=== PATIENT | male | born 1970 | race Caucasian/White ===

== ENCOUNTER 2019-10-21 01:45 | Outpatient (CLI) | payer OTHER, SELFPAY ==
[2019-10-21 09:17] LABS: Bilirubin Negative (Negative); Blood Negative (Negative); Clarity Clear (Clear); Glucose Negative (Negative); Ketones Negative (Negative); Leukocyte Esterase Negative (Negative); Nitrite Negative (Negative); Urobilinogen 0.2 EU/dL (Up TO 0.2)
== END 2019-10-21 02:05 ==
PROVIDERS: PCP Family Medicine; Visit Provider Urology
DX: N13.8 Other obstructive and reflux uropathy (principal); N40.1 Benign prostatic hyperplasia with lower urinary tract symptoms
CPT/HCPCS: 81003

== ENCOUNTER 2020-03-22 02:43 | Outpatient (CLI) | payer OTHER, SELFPAY ==
[2020-03-22 15:48] LABS: Bilirubin Negative (Negative); Blood Negative (Negative); Clarity Clear (Clear); Glucose Negative (Negative); Ketones Negative (Negative); Leukocyte Esterase Negative (Negative); Nitrite Negative (Negative); Specific Gravity 1.025 (1.005-1.025); Urobilinogen 0.2 EU/dL (Up TO 0.2)
== END 2020-03-22 03:03 ==
PROVIDERS: PCP Family Medicine; Visit Provider Urology
DX: N40.1 Benign prostatic hyperplasia with lower urinary tract symptoms (principal); N13.8 Other obstructive and reflux uropathy
CPT/HCPCS: 81003

== ENCOUNTER 2020-03-30 09:21 | Outpatient (CLI) | payer OTHER, SELFPAY ==
[2020-03-31 16:39] LABS: COVID-19 RT-PCR Result NEGATIVE (Negative)
== END 2020-03-30 09:41 ==
PROVIDERS: PCP Family Medicine; Visit Provider Family Medicine
DX: Z11.52 Encounter for screening for COVID-19 (principal); Z01.818 Encounter for other preprocedural examination
CPT/HCPCS: U0003

== ENCOUNTER 2020-05-11 02:13 | Outpatient (CLI) | payer OTHER, SELFPAY ==
[2020-05-11 16:26] LABS: ALT 53 U/L (16-63); AST 27 U/L (15-37); Alkaline Phosphatase 96 U/L (46-116); Anion Gap 2.4 mmol/L (3-11); BUN 14 mg/dL (7-18); Bilirubin, Total 0.5 mg/dL (0.2-1.0); CO2 31.6 mmol/L (21.0-32.0); CREATININE 0.8 mg/dL (0.70-1.30); Calcium 9.4 mg/dL (8.5-10.1); Calculated LDL 136 mg/dL (<100); Chloride 103 mmol/L (98-107); Cholesterol 232 mg/dL (<200); Glucose 108 mg/dL (74-106); HDL Cholesterol 38 mg/dL (40-60); Potassium 4.5 mmol/L (3.5-5.1); Sodium 137 mmol/L (136-145); Triglyceride 290 mg/dL (<150)
[2020-05-12 19:20] LABS: Vitamin D 25 Total 47.6 ng/ml (30-100)
== END 2020-05-11 02:14 | disposition home or self-care (01) ==
LOC: LBO 02:13
PROVIDERS: PCP Family Medicine; Visit Provider Family Medicine
DX: E55.9 Vitamin D deficiency, unspecified (principal); F41.9 Anxiety disorder, unspecified; E78.5 Hyperlipidemia, unspecified
CPT/HCPCS: 36415; 80053; 80061; 82306

== ENCOUNTER 2020-07-23 03:00 | Outpatient (CLI) | payer OTHER, SELFPAY ==
[2020-07-23 12:22] LABS: Source Nasal/Nares
[2020-07-23 17:02] LABS: COVID-19 PCR Negative (Negative)
== END 2020-07-23 03:01 | disposition home or self-care (01) ==
LOC: LBO 03:00
PROVIDERS: PCP Family Medicine; Visit Provider Otolaryngology
DX: Z20.822 Contact with and (suspected) exposure to COVID-19 (principal); Z01.818 Encounter for other preprocedural examination
CPT/HCPCS: 87635

== ENCOUNTER 2020-08-31 02:27 | Outpatient (CLI) | payer OTHER, SELFPAY ==
[2020-08-31 12:11] LABS: Source Nasal/Nares
[2020-08-31 15:24] LABS: COVID-19 PCR Negative (Negative)
== END 2020-08-31 02:28 | disposition home or self-care (01) ==
LOC: LBO 02:28
PROVIDERS: PCP Family Medicine; Visit Provider Otolaryngology
DX: Z20.822 Contact with and (suspected) exposure to COVID-19 (principal); Z01.818 Encounter for other preprocedural examination
CPT/HCPCS: 87635

== ENCOUNTER 2020-09-07 02:51 | Outpatient (CLI) | payer OTHER, SELFPAY ==
[2020-09-07 11:16] LABS: Source Nasal/Nares
[2020-09-07 15:14] LABS: COVID-19 PCR Negative (Negative)
== END 2020-09-07 02:52 | disposition home or self-care (01) ==
LOC: LBO 02:51
PROVIDERS: PCP Family Medicine; Visit Provider Otolaryngology
DX: Z20.822 Contact with and (suspected) exposure to COVID-19 (principal); Z01.818 Encounter for other preprocedural examination
CPT/HCPCS: 87635

== ENCOUNTER 2021-07-10 13:31 | Outpatient (CLI) | payer OTHER, SELFPAY ==
--- NOTE | 2021-07-10 13:00 | DI.RAD_ITS ---
Exam(s) XR SHOULDER RT COMPLETE 2+V EXAM: XR SHOULDER RT COMPLETE 2+V CLINICAL HISTORY: right shoulder pain. TECHNIQUE: 2D digital imaging was performed. Three views. COMPARISON: No exams were available for comparison FINDINGS: BONES: No acute fracture is present. No bony destructive lesion is seen. Acromion laterally downslop ing. Minimal spurring at the tip of the acromion. JOINTS: No dislocation present. Minimal spurring at the glenoid. SOFT TISSUE: Normal. IMPRESSION: Mild degenerative changes. DATA REPOSITORY: RADIATION DOSE DELIVERED:
== END 2021-07-10 13:32 | disposition home or self-care (01) ==
LOC: DIORS 13:32
PROVIDERS: PCP Family Medicine; Referring Provider Family Medicine; Visit Provider Physician Assistant
DX: M25.511 Pain in right shoulder (principal); M25.811 Other specified joint disorders, right shoulder
CPT/HCPCS: 73030

== ENCOUNTER → 2021-08-02 00:53 | Outpatient (CLI) | payer OTHER, SELFPAY ==
--- NOTE | 2021-08-02 07:00 | DI.MRI_ITS ---
Exam(s) MR UPPER JOINT RT WO EXAM: MR UPPER JOINT RT WO CLINICAL HISTORY: R SHOULDER PAIN, M25.511. TECHNIQUE: Multiplanar multisequence MRI was performed. COMPARISON: CR XR SHOULDER RT COMPLETE 2+V from 07/10/2021 FINDINGS: BONES: There is no fracture or contusion pattern. JOINTS: Mild degenerative changes are seen at the acromioclavicular joint. The glenohumeral joint is normal. TENDONS: Supraspinatus: There is a large near complete tear of the supraspinatus tendon at its insertion site. Infraspinatus: Unremarkable. Subscapularis: Unremarkable. Teres Minor: Unremarkable. Biceps and Rangely: Unremarkable. MUSCLES: Unremarkable. GLENOID LABRUM: Unremarkable on this noncontrast examination. SOFT TISSUES: Unremarkable. LIGAMENTS: Unremarkable. OTHER: There is a small amount of fluid in the subacromial subdeltoid bursa. IMPRESSION: 1. Near complete tear of the supraspinatus tendon at the insertion site onto the greater tuberosity. 2. Mild degenerative changes at the acromioclavicular joint. 3. Small amount of fluid seen in the subacromial subdeltoid bursa. DATA REPOSITORY:
== END ==
PROVIDERS: PCP Family Medicine; Visit Provider Student in an Organized Health Care Education/Training Program
DX: M25.511 Pain in right shoulder (principal); M25.411 Effusion, right shoulder; M75.101 Unspecified rotator cuff tear or rupture of right shoulder, not specified as traumatic
CPT/HCPCS: 73221

== ENCOUNTER 2022-01-30 09:20 | Day surgery (SDC) | payer OTHER, SELFPAY ==
[2022-01-30] VITALS (8 sets, daily range): BP systolic 90–137; BP diastolic 46–86; PULSE 58–88; RESP 13–19; TEMP 36.5–36.7; O2SAT 94–99; BMI 29.5
--- NOTE | 2022-01-30 08:08 | W.ANESPRE ---
General Info Date of Service Date Performed: 01/30/22 Height: 6 ft 2 in Weight: 104.326 kg Body Mass Index (BMI): 29.5 Surgical Procedure: Operation Date: 01/30/22 10:25 Proposed Procedure Side Surgeon p Shoulder Rotator Cuff Arthroscopic w/Extensive Debridement, Biceps Tenodesis, Subacromial Decompression Right Don Elias MD Meds Allergies and Home Medications Allergies Allergy/AdvReac Type Severity Reaction Status Date / Time No Known Allergies Allergy Verified 01/29/22 08:32 Home Medication Medication Instructions Recorded cholecalciferol (vitamin D3) 10 40 mcg PO DAILY 07/02/21 mcg (400 unit) capsule multivitamin 1 tab PO DAILY 07/02/21 sertraline 25 mg tablet 25 mg PO DAILY 01/08/22 Current Visit Medications: Current Medications Generic Name Dose Route Start Last Admin Trade Name Freq PRN Reason Stop Dose Admin Ringer's Solution 1,000 mls @ 30 mls/hr 01/30/22 06:00 IV 02/28/22 23:59 INFUSION ANGELITA Cefazolin Sodium/Dextrose 2 gm in 50 mls @ 100 mls/hr 01/30/22 06:00 Ancef Duplex IVPB 01/30/22 16:00 PREOP ANGELITA IV Miscellaneous Supplies 1 each 01/30/22 06:00 Iv Access IV 02/28/22 23:59 DIRECTED ANGELITA Oxycodone HCl 0 mg 01/30/22 07:15 Oxycodone 5 Mg Tab PO Q3H PRN PRN Pain Sodium Chloride 0 ml 01/30/22 06:00 Normal Saline Flush 10 Ml Syr IV 02/28/22 23:59 PRN PRN Sodium Chloride 0 ml 01/30/22 06:00 Normal Saline 10 Ml Vial IJ 02/28/22 23:59 DIRECTED PRN Sterile Water 0 ml 01/30/22 06:00 Water,Injection,Sterile 10 Ml Vial IJ 02/28/22 23:59 DIRECTED PRN PFSH Active Problems Active Problems: Problem Status Onset Code Sinusitis J32.9 Restless leg syndrome G25.81 Mixed hyperlipidemia E78.2 Sleep apnea G47.30 Vitamin D deficiency E55.9 Tendonitis of long head of biceps brachii of right shoulder M75.21 Bursitis of right shoulder M75.51 Rotator cuff tear, right M75.101 Medical History Medical History Ankle fracture, right plate and pins, ~2013 [facility] Obstructive sleep apnea on CPAP Torticollis neck, Dx 2010 Medical History Comments:: As child PONV Surgical History Surgical History H/O nasal septoplasty CV ~2019 S/P TURP CV ~2018 Tobacco Smoking/Tobacco Use Status: Current-Occasional Tobacco Type: cigars Alcohol Alcohol Intake: current Alcohol intake frequency: holidays/special occasions only Alcohol type: beer Substance Use Substance use: Never Substance use type: does not use Vital Signs and Lab Results Vital Signs Most Recent Vital Signs in EMR: Temp Pulse Resp BP Pulse Ox 36.6 C 88 18 137/80 97 01/30/22 09:27 01/30/22 09:27 01/30/22 09:27 01/30/22 09:27 01/30/22 09:27 Lab Results Blood Type / Crossmatch: No Data to Display Complete Blood Count: No Data to Display Complete Metabolic Panel: No Data to Display Liver Function Panel: No Data to Display Coagulation Panel: No Data to Display Cardiac Panel: No Data to Display Arterial Blood Gas: No Data to Display Venous Blood Gas: No Data to Display Pancreas Panel: No Data to Display Thyroid Panel: No Data to Display Infectious Disease: No Data to Display Blood Cultures: No Data to Display Toxicology Panel: No Data to Display Anesthesia Assessment and Plan Anesthesia History Personal History: Other Family History: No Family History of Anesthesia Complications Exercise Tolerance Exercise Tolerance: Metabolic Equivalents>4 Cardiac & Pulmonary Exam Cardiac Exam: Normal S1/S2 Heart Sounds Pulmonary Exam: Clear Bilateral Breath Sounds Implantable Cardiac Device Does patient have a Pacemaker or an ICD?: No Airway Exam Known Difficult Airway: No Mallampati Class: 2 Mouth Opening: Normal (> 3cm) Thyromental Distance: Greater than 3 cm Neck Range of Motion: Full ROM Neck Circumference: Normal Teeth Condition: Normal Dentition ASA Classification ASA Score: ASA 2 Emergency Case?: No NPO Status NPO Status: NPO Clears >2 hours, Solids >8 hours Anesthesia Plan Resuscitation Status: Full Code Anesthesia Technique: General Anesthesia Airway Planned: Endotracheal Tube Pain Management: Surgeon and patient request nerve block Monitors Used: Standard Monitors Preoperative Comments:: 51 yo male for shoulder scope. Sig PMHx: RLS, RONALD, torticollis, s/p septoplasty, occ cigars/etoh. Discussed risks and benifits of GA with brachial plexus block. discussed risk of permanant nerve injury. He would like to proceed with GA, and brachial plexus block. Does have a history of PONV and motion sickness. Has had scopolamine patch in the past with success, will give him one today.
[2022-01-30] MEDS: Lactated Ringers 1,000 ML 30 ML IV (10:00)
--- NOTE | 2022-01-30 12:00 | ROE_ITS ---
Date of service: 01/30/22 Time of Service: 12:00 Operative Note Operative Note DATE OF PROCEDURE: 01/30/22 PRE-OP DIAGNOSIS: Right: 1. Rotator cuff tear 2. LHB tendinopathy 3. Bursitis 4. Impingement POST-OP DIAGNOSIS: same PROCEDURE: Right: 1. Rotator cuff repair, CPT# 93117. This involved repair of the supraspinatus using sutures and anchor to reattach the rotator cuff back to the footprint of the greater tuberosity. 2. Arthroscopic biceps tenodesis, CPT# 46354. This involved arthroscopically suturing and reattaching the long head of the biceps tendon to the proximal humerus at the superior margin of the bicipital groove with a screw at the correct tension. 3. Extensive debridement, CPT# 79079. This involved using arthroscopic hand instruments, power instruments, and radiofrequency instruments to release the long head of the biceps tendon and debride areas of labral tearing, synovitis, [facility] and a small anterior capsular release, and chondromalacia about the humeral head working within the glenohumeral joint anteriorly, superiorly and posteriorly. 4. Subacromial decompression with partial acromioplasty, CPT# 21732. This involved using arthroscopic power instruments and a radiofrequency wand to complete a bursectomy and release bone marrow from the undersurface of the acromion. The assistant housekeeping manager was medically required in order to help assist in techniques above, which require positioning the arm, holding the arthroscope, and manipulating multiple instruments and sutures at the same time. This cannot be done without the help of an experienced assistant housekeeping manager. SURGEON: Don Elias SUPERVISOR FUSING ROOM: Gayla Dunn ANESTHESIA TYPE: General LMA/ETT and Primary Nerve Block Refer to Anesthesia Record ESTIMATED BLOOD LOSS: 10 PATHOLOGY: none sent COMPLICATIONS: None Patient was transported to: PACU Patient's condition: stable Implants: Arthrex: 4.75mm SwiveLocks x 2 Indications: The patient was diagnosed with the above conditions and appropriately indicated for surgical intervention. Please see complete medical record for details. Findings: Exam under anesthesia: Moderately limited external rotation stiffness at the side and mildly limited forward elevation Glenohumeral joint: SLAP tear with moderate biceps injection. Intact articular rotator cuff. Moderate early glenohumeral narrowing and cartilage softening chondromalacia with a few focal areas of cartilage injury superior humeral head. Moderate anterior synovitis. Intact subscapularis. Subacromial space: Moderate bursitis. Minimal acromial bone spur. Concealed supraspinatus near?full-thickness bursal tear. Mild diffuse rotator cuff f raying intact remainder rotator cuff. Procedure Description: In the operating room, general anesthesia was induced. Bilateral shoulders were examined. The patient was positioned in the beachchair position. All bony prominences were well-padded. Preoperative antibiotics were administered. The shoulder was prepped and draped in the usual sterile fashion. The correct patient, procedure, and side of the procedure were all verified prior to incision. Starting through the posterior portal a standard complete diagnostic arthroscopy was performed of the glenohumeral joint including inspection of the long head of the biceps, anterior and superior labrum, subscapularis tendon, supraspinatus and infraspinatus tendons, and axillary recess. The glenoid and humeral head cartilage as well as the posterior labrum were inspected from an anterior viewing portal. Significant findings and interventions noted above. An all-arthroscopic suprapectoral biceps tenodesis was performed through an anterior portal using a Loop N Tack method with a SutureTape FiberLink cinched around and through the tendon. The biceps was tenotomized from the labrum and fixated with a suture anchor at the superior margin of the bicipital groove. The safety stitch was passed around either end of the tendon stump and arthroscopic knots used to add further fixation and tenodesis security. Starting through the posterior portal, the arthroscope was directed into the subacromial space. A lateral 50 yard line lateral portal was created. A combination of power instruments and a radiofrequency ablator were used to debride bursitis anteriorly, posteriorly, and laterally. The coracoacromial ligament was minimally released. The bursectomy was completed viewing laterally and working from posteriorly and the rotator cuff was thoroughly inspected with findings noted above. The elevator was used to localize the area of lateral anterior supraspinatus tendon injury. Taking care to elevate from lateral the elevator was easily able to find the focal area of known high-grade tendon tearing. It was about a centimeter medial lateral anterior and posterior. It was thoroughly debrided and tendon and bone optimize for healing using mechanical shaver various elevators and rasp. There was good preparation of the bony bed for healing. The remaining tendon had strong fibers. The self retrieving suture passer was used to place an inverted horizontal mattress FiberTape stitch followed by a suture tape FiberLink ripstop centrally. The sutures were secured to a single 3 punched 4.75 mm SwiveLock lateral anchor with the appropriate tension and excellent fixation strength. The repair was stable through range of motion and probing. The mechanical shaver was used to abrade the undersurface of the acromion as bone marrow stimulation aid in healing of this subacute and partial rotator cuff tear. The shoulder was drained of arthroscopic fluid. All portal sites were copiously irrigated. These incisions were closed using 3-0 Monocryl in a buried fashion and then covered with Mastisol, Steri-Strips, Xeroform, dry gauze, and ABDs. The dressings were covered and secured with Medipore tape. The operative extremity was placed into a sling for immobilization. The patient awoke from anesthesia without complication and was transferred to the recovery room in a stable condition.
[2022-01-30] MEDS: ceFAZolin 2 GM/50 ML BAG IVPB (12:14)
--- NOTE | 2022-01-30 12:35 | W.ANESNERVE ---
Nerve Block Single Injection Procedure Date and Time Date Performed: 01/30/22 Procedure Start: 11:59 Location Where Procedure Performed Procedure Location: Day Surgery Unit Reason Performed: Postoperative Analgesia Requesting Provider: Don Elias Timeout Performed Timeout Performed: Yes Monitoring Used ECG, Blood Pressure and SpO2 Sterility Sterility: Hand Hygiene Sedation Given During Procedure Sedation Given (Indicate Dose Given): Versed IV Dose:: 2 mg and Ketamine IV Dose:: 10 mg Patient Mental Status Patient Mental Status: Sedate with meaningful communication Nerve Block 1st Nerve Block: Laterality: Right Block Type: Interscalene Needle / Catheter Used: 100mm SonoPlex II Local Anesthetic Bolus (Indicate Dose Given): Bupivacaine 0.5% Dose:: 15 mL and Exparel Dose:: 10 mL Additives (Indicate Dose Given): None Ultrasound: Sterile probe cover and gel used Ultrasound Image Saved?: Yes Nerve Stimulator: Supplement to Ultrasound use and No twitch or parasthesia noted < 0.5 mA Paresthesia: None Procedure Tolerated: No Complications Procedure Outcome: Successful Performed By: Krunal Martin
[2022-01-30] MEDS: EPINEPHrine 30 MG/30 ML VIAL (13:15)
--- NOTE | 2022-01-30 13:51 | W.PM.DSUDISC ---
Date of service: 01/30/22 Time of Service: 13:51 Discharge Plan Disposition Patient Disposition: HOME Condition: Good Discharge Details Reason For Visit: Right shoulder surgery Attending Provider: Don Elias Primary Care Provider: Nick Dave Home Meds and New Rx's Prescriptions: New naproxen 250 mg tablet 250 - 500 mg PO BID PRNQty: 40 0RF Rx Instructions: take with a meal aspirin 81 mg tablet,delayed release (DR/EC) 81 mg PO DAILY 7 Days Qty: 7 0RF oxycodone 5 mg tablet 5 - 10 mg PO Q4H MDD 30 mg PRN (Reason: moderate to severe pain) Qty: 18 0RF Continued sertraline 25 mg tablet 25 mg PO DAILY cholecalciferol (vitamin D3) 10 mcg (400 unit) capsule 40 mcg PO DAILY multivitamin Tablet 1 tab PO DAILY Discharge Instructions Additional Instructions: Surgery: Right shoulder arthroscopy with rotator cuff repair (bursal supraspinatus), biceps tenodesis, extensive debridement, and subacromial decompression. Activity: For 6 weeks, you should keep your arm at your side in a neutral position at all times except for physical therapy. Do not try to lift or raise your arm using your own muscles. You should use the sling whenever you are out of the house. You may have to adjust the abduction pillow or remove it for comfort. At home it is best to remove the sling and rest the arm on a pillow at your side or support the operative side with your other hand. You may allow the arm to dangle at your side. A physical therapy prescription will be sent electronically to begin in about 3 weeks. Prescriptions: Aspirin 81 mg take 1 daily to prevent a blood clot for 7 days Naproxen 250 mg take 1-2 every 12 hours with a meal as needed for moderate pain Oxycodone 5 mg take 1-2 every 4-6 hours as needed for severe pain You may use [id number] Tylenol (acetaminophen) as needed for mild pain. These pain medications may be taken all at once or in different combinations as needed. Also, recommend Colace (docusate) as a stool softener as surgery and pain medicine cause constipation. You may try [id number] diphenhydramine (Benadryl) 25-50 mg nightly as a sleep aid Dressings: Remove shoulder bandage after 3 days. Leave the sticky Steri-Strips in place until they fall off or remove them after you shower. Cover the incisions with Band-Aids or leave them open to air. You may shower after 5 days. Follow-up: 10-[address] Elias You may take off the leg compression stockings this evening at home. You may also leave them on a few days longer if you have a history of leg swelling or edema. Let us know right away if you develop any redness, drainage, fevers, chest pain, or trouble breathing. Do not drink alcohol or drive for at least 24 hours after anesthesia. Please call the office during business hours with any questions or concerns. DS: Diagnosis Discharge Diagnosis (1) Rotator cuff tear, right: Status: Acute
--- NOTE | 2022-01-30 14:56 | W.ANESPOSTOP ---
Postoperative Evaluation Date, Time and Location Date Performed: 01/30/22 Time Performed: 14:56 Patient Location: Day Surgery Unit Vital Signs Most Recent Imported Vital Signs: Most Recent Vital Signs Temp Pulse Resp BP Pulse Ox 36.5 C 64 16 102/59 L 94 01/30/22 14:32 01/30/22 14:32 01/30/22 14:32 01/30/22 14:32 01/30/22 14:32 Pain Score Most Recent Pain Score: Most Recent Pain Score Pain Level 0 01/30/22 14:32 Assessment Mental Status: Awake (Alert & Oriented to Patient Baseline) Airway and Respiratory Function: Patent airway with normal (patient baseline) respiratory exam Cardiovascular Function: Hemodynamically Stable Hydration Status: Adequately Hydrated Nausea & Vomiting: No Nausea or Vomiting Pain: Pain is tolerable per patient Peripheral Nerve Block: Regional nerve block not resolved at time of post operative discharge
== END 2022-01-30 15:31 | disposition home or self-care (01) ==
PROVIDERS: PCP Family Medicine; Visit Provider Student in an Organized Health Care Education/Training Program
PROC: (CPT 29827; principal; 2022-01-30 10:15)
DX: M75.101 Unspecified rotator cuff tear or rupture of right shoulder, not specified as traumatic (principal); M75.21 Bicipital tendinitis, right shoulder; M75.51 Bursitis of right shoulder; M75.41 Impingement syndrome of right shoulder; M94.211 Chondromalacia, right shoulder
CPT/HCPCS: 29827; 29828; 29826; 29823; 76942; J0131; J0690; J1100; J1885; J2250; J2370; J2405; J2704

== ENCOUNTER 2022-02-16 07:38 | Emergency (ER) | payer OTHER, SELFPAY ==
[2022-02-16 07:41] VITALS: BP 134/85; PULSE 72; RESP 18; TEMP 36.1; O2SAT 99
--- NOTE | 2022-02-16 07:45 | DI.RAD_ITS ---
Exam(s) XR SHOULDER RT COMPLETE 2+V EXAM: XR SHOULDER RT COMPLETE 2+V CLINICAL HISTORY: s/p rotator cuff repair,worse pain,r/o acute dz TECHNIQUE: COMPARISON: CR XR SHOULDER RT COMPLETE 2+V from 07/10/2021 FINDINGS: Four views were obtained. There is some loss of the cartilaginous joint space of the glenohumeral gertrudis int, presumably on a degenerative basis. Slight marginal osteophyte formation of the AC joint and gl enohumeral joint is noted. There is no evidence of acute fracture or dislocation. IMPRESSION: RADIATION DOSE DELIVERED: Total DLP
--- NOTE | 2022-02-16 07:58 | W.ED.GENAD ---
Discharge Plan Disposition Patient Disposition: Home Condition: Stable Discharge Details Clinical Impression: Pain in right shoulder, Frozen shoulder Primary Care Provider: Nick Dave ED Provider: Daron Lang Home Meds and New Rx's Prescriptions: Continued sertraline 25 mg tablet 25 mg PO DAILY cholecalciferol (vitamin D3) 10 mcg (400 unit) capsule 40 mcg PO DAILY multivitamin Tablet 1 tab PO DAILY naproxen 250 mg tablet 250 - 500 mg PO BID PRNQty: 40 0RF Rx Instructions: take with a meal oxycodone 5 mg tablet 5 tab PO Q8H PRN Label Comments: TAKE ONE TO TWO TABLETS EVERY 4 HOURS NEEDED FOR MODERATE TO SEVERE PAIN MAXIMUM DAILY DOSE = 6 TABLETS Discontinued ibuprofen 600 mg Tablet 600 mg PO Q8H Discharge Instructions Instructions: Shoulder Pain (ED) Additional Instructions: Please follow-up with orthopedics. Please take acetaminophen (tylenol) - 650mg every 6 hours by mouth as needed for pain. Please take naproxen as prescribed or ibuprofen (dose according to label). Return to the emergency department immediately for any worsening or new concerning symptoms. Referrals: Don Elias MD [ [facility] STAFF PHYSICIAN] - Discharge Data Discharge Date/Time-TO BE ENTERED AT DEPARTURE: 02/16/22 10:43 Medical Decision Making <Dagmar Baca DO - Last Filed: 02/19/22 18:46> 51-year-old male 2-1/2-week status post right rotator cuff repair with Dr. Elias presents with worsening pain this morning. Patient appears significantly uncomfortable diaphoretic. His vitals are within normal limits. He has limitation of range of motion at right shoulder but is able to passively flex and abduct to approximately 20 degrees. Distal pulses are intact. Surgical site no signs of cellulitis. Consider adhesive capsulitis. History and presentation not consistent with ACS at this time. We will give a dose of Zofran for nausea and Dilaudid p.o. approximately 30 minutes after Zofran if relief of nausea. Will obtain right shoulder x-ray. Case endorsed to Dr. Lang to follow-up on imaging and reassess after pain meds and discuss with orthopedics any additional recommendations or plan. <Daron Lang MD - Last Filed: 02/16/22 09:49> Sign Out No HPI <Dagmar Baca DO - Last Filed: 02/19/22 18:46> General Mode of arrival: ambulatory. Date/Time Provider Initiated Documentation: 02/16/22 07:46. Limitations to Documentation: no limitations. Information obtained by: patient. HPI Narrative: Patient is a 51-year-old male who is 2 and half weeks status post right rotator cuff repair with Dr. Elias who presents for worsening right shoulder pain this morning. He denies any new injury. Patient states he took naproxen and Tylenol at 4:30 AM and took oxycodone at 6 AM without relief. Patient states he has not needed to take the oxycodone until this morning. Patient states he feels like his shoulder is frozen. Patient last followed up with Dr. Elias this week for a postop visit and was told he can slightly increase his range of motion in his shoulder but he states he has been mainly using the ball for hand exercises and has not been rotating his shoulder as much. He denies any fever, chest pain, difficulty breathing. Patient does admit to nausea but states he frequently has this at times of pain. Related Data Home Medications Medication Instructions Recorded Confirmed cholecalciferol (vitamin D3) 10 40 mcg PO DAILY 07/02/21 02/16/22 mcg (400 unit) capsule multivitamin 1 tab PO DAILY 07/02/21 02/16/22 sertraline 25 mg tablet 25 mg PO DAILY 01/08/22 02/16/22 naproxen 250 mg tablet 250 - 500 mg PO BID PRN #40 tabs 01/30/22 02/16/22 oxycodone 5 mg tablet 5 tab PO Q8H PRN pain 02/16/22 02/16/22 Previous Rx's Medication Instructions Recorded naproxen 250 mg tablet 250 - 500 mg PO BID PRN #40 tabs 01/30/22 Allergies Allergy/AdvReac Type Severity Reaction Status Date / Time No Known Allergies Allergy Verified 02/16/22 07:44 General Stated Complaint: Orthopedic ARTURO: 3 Review of Systems <DO Alexander Turcios Last Filed: 02/19/22 18:46> All systems reviewed & are unremarkable except as noted in HPI and below Constitutional Constitutional: Reports as per HPI, Denies chills and Denies fever(s) Eyes Eyes: Denies blurry vision ENT Ears, Nose, Mouth, and Throat: Denies dizziness, Denies sore throat and Denies throat swelling Cardiovascular Cardiovascular: Denies chest pain and Denies dyspnea Respiratory Respiratory: Denies cough and Denies dyspnea Gastrointestinal Gastrointestinal: Denies abdominal pain, Denies diarrhea and Denies vomiting Genitourinary Genitourinary: Denies hematuria and Denies dysuria Musculoskeletal Musculoskeletal: Denies back pain and Denies numbness Comments: Right shoulder pain Integumentary/Breasts Skin/Breast: Denies lesions and Denies rash Neurologic Neurologic: Denies dizziness, Denies localized weakness and Denies numbness Allergic/Immunologic Allergic/Immunologic: Denies throat swelling PFSH <Dagmar Baca DO - Last Filed: 02/19/22 18:46> All Active Problems (Updated 02/16/22 @ 09:52 by Daron Lang MD) Pain in right shoulder (Acute) Frozen shoulder (Acute) Sinusitis (Acute) Restless leg syndrome (Acute) Mixed hyperlipidemia (Acute) Sleep apnea (Acute) Vitamin D deficiency (Acute) Rotator cuff tear, right (Acute) Medical History (Updated 02/16/22 @ 09:52 by Daron Lang MD) Ankle fracture, right plate and pins, ~2013 [facility] Bursitis of right shoulder Obstructive sleep apnea on CPAP Tendonitis of long head of biceps brachii of right shoulder Torticollis neck, Dx 2009 Surgical History H/[place] [facility] [place] [facility] [place] Social History Smoking/Tobacco Use Status: Current-Occasional Tobacco Type: cigars Tobacco: How many years used: 25 Smoking risk assessment performed?: Yes Alcohol Intake: current Alcohol Intake frequency: holidays/special occasions only Alcohol type: beer Drug use: Never Substance use type: does not use Current gender identity: male Do you feel safe at home: Yes Do you feel safe in your relationship?: Yes Exam <Dagmar Baca DO - Last Filed: 02/19/22 18:46> Const General: cooperative, healthy appearing and no acute distress HENMT Head: normal to inspection Mouth: oral mucosae normal Eyes General: appearance normal, both eyes and all related structures Neck Neck: normal visual inspection Resp Effort & Inspection: normal respiratory effort and able to speak in complete sentences Auscultation: clear to auscultation bilaterally Cardio Rate: regular rate Rhythm: regular rhythm Skin General skin exam: no rashes or lesions noted Neuro General: patient alert, patient awake and patient oriented x3 Motor: muscle tone normal throughout Extrem Shoulder/upper arm images: 1. Well-healed surgical incision sites. No signs of cellulitis. Other: Limited range of motion at right shoulder but able to passively flex and abduct to about 20 degrees. Right radial pulse intact. Psych Appearance: grossly normal Affect: normal affect Course <Dagmar Baca DO - Last Filed: 02/19/22 18:46> Vital Signs Vital signs: Vital Signs Temperature 97.0 F L 02/16/22 07:41 Pulse 72 02/16/22 07:41 Respiratory Rate 18 02/16/22 07:41 Blood Pressure 134/85 02/16/22 07:41 Pulse Oximetry 99 02/16/22 07:41 Temperature 97.0 F L 02/16/22 07:41 Temperature Source Temporal Artery Scan 02/16/22 07:41 Pulse 72 02/16/22 07:41 Respiratory Rate 18 02/16/22 07:41 Respiratory Effort 02/16/22 07:44 Blood Pressure 134/85 02/16/22 07:41 Blood Pressure Position Sitting 02/16/22 07:41 Pulse Oximetry 99 02/16/22 07:41 Oxygen Delivery Method Room Air 02/16/22 07:41 Oxygen Flow Rate 0 02/16/22 07:41 Pain Level 7 02/16/22 07:41 Sign Out <Dagmar Baca DO - Last Filed: 02/19/22 18:46> Sign Out Data: Sign Out Comment: Status post rotator cuff repair on 01/[address] Elias. Worsening R shoulder pain this morning. Reassess after meds follow-up on x-ray and likely discuss plan with orthopedics. Last updated by Dagmar Baca DO at 02/16/22 07:59
[2022-02-16] MEDS: Ondansetron O.D.T. 4 MG TABEF PO (08:03)
--- NOTE | 2022-02-16 08:25 | DI.VRAD_ITS ---
PROCEDURE INFORMATION: Exam: XR Right Shoulder Exam date and time: 02/16/2022 8:13 AM Age: 51 years old Clinical indication: Pain; Shoulder; Right; Prior surgery; Surgery date: <1 month; Surgery type: Rotator cuff on the TECHNIQUE: Imaging protocol: Radiologic exam of the Right shoulder. Views: 2 or more views. COMPARISON: CR XR SHOULDER RT COMPLETE 2+V 07/10/2021 1:26 PM FINDINGS: Bones/joints: Unremarkable. Soft tissues: Unremarkable. IMPRESSION: No acute findings. Dictated and Authenticated by: Adrian Carmona MD. Ordering:POLO Leavitt MD
[2022-02-16] MEDS: HYDROmorphone 4 MG TAB PO (08:27)
[2022-02-16 09:20] VITALS: BP 125/79; PULSE 63; RESP 16; O2SAT 96
--- NOTE | 2022-02-16 09:50 | W.EDPROG ---
Date of service: 02/16/22 Time of Service: 09:50 Medical Decision Making Care signed out by Dr. Baca, please see her documentation regarding initial ED presentation and course. X-ray of the shoulder was interpreted by radiology: No acute findings. I spoke with Dr. Middleton as well as Dr. Elias. I discussed ED presentation and course. They recommend NSAID, continue opioids if needed and Dr. Elias will follow up with the patient. Patient was reassessed and nausea improved as well as pain improved. Sign Out No Sign Out Sign Out Data: Sign Out Comment: Status post rotator cuff repair on 01/[address] Elias. Worsening R shoulder pain this morning. Reassess after meds follow-up on x-ray and likely discuss plan with orthopedics. Last updated by Dagmar Baca DO at 02/16/22 07:59 Discharge Plan Disposition Patient Disposition: Home Condition: Stable Discharge Details Clinical Impression: Pain in right shoulder, Frozen shoulder Primary Care Provider: Nick Dave ED Provider: Daron Lang Home Meds and New Rx's Prescriptions: Continued sertraline 25 mg tablet 25 mg PO DAILY cholecalciferol (vitamin D3) 10 mcg (400 unit) capsule 40 mcg PO DAILY multivitamin Tablet 1 tab PO DAILY naproxen 250 mg tablet 250 - 500 mg PO BID PRNQty: 40 0RF Rx Instructions: take with a meal oxycodone 5 mg tablet 5 tab PO Q8H PRN Label Comments: TAKE ONE TO TWO TABLETS EVERY 4 HOURS NEEDED FOR MODERATE TO SEVERE PAIN MAXIMUM DAILY DOSE = 6 TABLETS Discontinued ibuprofen 600 mg Tablet 600 mg PO Q8H Discharge Instructions Instructions: Shoulder Pain (ED) Additional Instructions: Please follow-up with orthopedics. Please take acetaminophen (tylenol) - 650mg every 6 hours by mouth as needed for pain. Please take naproxen as prescribed or ibuprofen (dose according to label). Return to the emergency department immediately for any worsening or new concerning symptoms. Referrals: Don Elias MD [ [facility] STAFF PHYSICIAN] - Discharge Data Discharge Date/Time-TO BE ENTERED AT DEPARTURE: 02/16/22 10:43
== END 2022-02-16 10:43 | disposition home or self-care (01) ==
PROVIDERS: Emergency Provider Student in an Organized Health Care Education/Training Program; PCP Family Medicine
DX: M75.01 Adhesive capsulitis of right shoulder (principal); F17.290 Nicotine dependence, other tobacco product, uncomplicated
CPT/HCPCS: 99283; 73030; 99284

== ENCOUNTER → 2023-04-03 00:27 | Outpatient (CLI) | payer BC, SELFPAY ==
--- NOTE | 2023-04-03 14:58 | DI.RAD_ITS ---
Exam(s) XR SHOULDER LT COMPLETE 2+V EXAM: XR SHOULDER LT COMPLETE 2+V CLINICAL HISTORY: H/O ROTATOR CUFF TEAR,FEELS SIMILAR,LT SHOULDER PAIN,m25.512. TECHNIQUE: 2D digital imaging was performed. Three views. COMPARISON: CR,XR XR SHOULDER RT COMPLETE 2+V from 02/16/2022 FINDINGS: BONES: No acute fracture is present. No bony destructive lesion is seen. JOINTS: No dislocation present. No significant degenerative changes. SOFT TISSUE: Normal. IMPRESSION: Unremarkable radiographs of the left shoulder. DATA REPOSITORY: RADIATION DOSE DELIVERED:
== END ==
PROVIDERS: PCP Family Medicine; Visit Provider Family Medicine
DX: M25.512 Pain in left shoulder (principal)
CPT/HCPCS: 73030

== ENCOUNTER → 2023-06-26 00:15 | Outpatient (CLI) | payer BC, SELFPAY ==
--- NOTE | 2023-06-26 09:45 | DI.MRI_ITS ---
Exam(s) MR UPPER JOINT LT WO EXAM: MR UPPER JOINT LT WO CLINICAL HISTORY: LT SHOULDER PAIN, M25.512,G89.29 TECHNIQUE: Multiplanar multisequence MRI of the shoulder was performed. COMPARISON: MR MR UPPER JOINT RT WO from 08/02/2021 CR XR SHOULDER LT COMPLETE 2+V from 04/03/2023 FINDINGS: MARROW:No evidence of fracture nor Hill-Sachs deformity nor osseous Bankart lesion. However, there i s a well-defined bone lesion measuring 1.3 by 1.2 cm in the scapula the base of the a chromium. T1 h ypointense and T2 hyperintense and with sclerotic rim. GLENOHUMERAL JOINT: No evidence of glenohumeral joint effusion but there is fluid within the biceps t endon sheath within the intertubercular groove consistent with tenosynovitis. There are no loose int ra-articular bodies within the tendon sheath at this level. Is no prominent articular cartilage loss in the glenohumeral joint. No degenerative subarticular cysts. No osteophytes evident. ROTATOR CUFF MECHANISM: AC JOINT/ACROMIUM: Mild degenerative changes in the AC joint.. There is no evidence of os acromiale. Supraspinatus: There is abnormal signal in the most anterior aspect of the musculotendinous junction of the supraspinatus immediately subjacent to the coraco- acromial ligament within the rotator cuff i nterval. This is immediately adjacent to the biceps tendon at this level. There is also some tendin itis signal in the supraspinatus tendon just above the greater tuberosity.. Mild edema noted in the subacromial bursa space. There is no atrophy of the muscle belly. Infraspinatus: Intact. No evidence of tear nor muscle atrophy. Teres Minor: Intact. No evidence of tear nor muscle atrophy. Subscapularis/anterior cuff: Intact. No abnormal signal at the level of the multipennate insertional fibers. No significant tear nor atrophy. BICEPS TENDON: Exhibits normal position within the intertubercular groove. No evidence of tear. No tenosynovitis. LABRUM: No labral tear identified. No evidence of paralabral cyst. QUADRILATERAL SPACE: No evidence of mass in the region of the axillary nerve and dorsal circumflex hu meral vessels. Visualized triceps muscle at this level appears unremarkable. IMPRESSION: 1. There is signal abnormality related to the most anterior aspect of the supraspinatus tendon and ab ove the greater tuberosity with mild edema in the subacromial space. Favor tendinitis over partial-t hickness tearing. Other muscles of the rotator cuff mechanism appear intact. 2. There is tenosynovitis of the biceps tendon within the intertubercular groove. No loose bodies wi thin the tendon sheath. There is no generalized glenohumeral joint effusion, this excess fluid being localized to the biceps tendon sheath. 3. No obvious labral tears nor paralabral cysts. 4. No obvious degenerative changes in the glenohumeral joint. Mild degenerative changes in the AC j oint. 5. There is a 13 x 12 millimeter bone lesion in the scapula at the base of the achromium. Should be further imaged with CT scan of this region. DATA REPOSITORY:
== END ==
PROVIDERS: PCP Family Medicine; Visit Provider Family Medicine
DX: M75.22 Bicipital tendinitis, left shoulder (principal)
CPT/HCPCS: 73221

== ENCOUNTER 2023-09-13 15:58 | Observation (INO) | payer BC, SELFPAY ==
[2023-09-13 16:00] VITALS: BP 151/75; PULSE 87; RESP 16; TEMP 36.2; O2SAT 96
--- NOTE | 2023-09-13 16:15 | DI.CT_ITS ---
Exam(s) CT ABDOMEN PELVIS W EXAM: CT ABDOMEN PELVIS W CLINICAL HISTORY: RLQ pain. TECHNIQUE: Imaging Protocol: Axial computed tomography images with coronal and sagittal reformatted images were created and reviewed CONTRAST MATERIAL: Intravenous: Omnipaque-350 100cc Oral: None COMPARISON: No exams were available for comparison FINDINGS: VISUALIZED LUNG BASES: No nodules nor pleural effusions evident. ABDOMEN: There is no ascites. LIVER: There few small hypodensities in the liver. The largest measures 1.1 x 1.0 cm. These have th e appearance of probable cysts. No dilated intrahepatic ducts. GALLBLADDER/BILIARY: No obvious gallbladder pathology. CBD is not dilated. PANCREAS: No evidence of pancreatic mass nor dilatation of the pancreatic duct. SPLEEN: Spleen size is upper normal-minimally prominent measuring 13 cm craniocaudal. There are no s plenic lesions identified. Splenic and portal veins are patent. ADRENALS: There are no significant adrenal masses. KIDNEYS:Left kidney unremarkable. The right side there is a small calculus in the upper right ureter at the ureteropelvic junction, this measures 3 mm. There are no additional radiopaque calculi seen in the right ureter below this level nor within the nondistended urinary bladder.. ABDOMINAL AORTA: Abdominal aorta is not enlarged. LYMPH NODES:There is no retroperitoneal nor paraaortic adenopathy. ABDOMINAL WALL: No evidence of significant anterior abdominal wall nor inguinal hernia. GI: There is no evidence of bowel obstruction, free air, nor abscess. PELVIS: GI: The appendix is enlarged measuring 10 mm diameter and there is mild streaking in the mesoappendix fat.. There is no calcified appendicolith. No evidence of perforation. No abscess.No evidence of sigmoid diverticulitis. LYMPH NODES: There is no intrapelvic nor inguinal adenopathy. REPRODUCTIVE: Prostate size normal. URINARY BLADDER: No calculi nor obvious masses evident OSSEOUS: No fractures and no significant osseous lesions. IMPRESSION: 1. There are 2 separate right-sided findings. The appendix is mildly enlarged (10 mm). There is carson e mild inflammatory-type streaking in adjacent fat. Suspect early appendicitis. 2. There is also a 3 mm calculus at the right ureteropelvic junction with mild right-sided hydronephr osis. No other calculi below this level in the right ureter nor in the urinary bladder. No calculi in the opposite-left kidney. 3. Other findings as above. RADIATION DOSE DELIVERED: 1,327.21mGy.cm Total DLP DATA REPOSITORY: All CT scans at this facility are submitted to the National Radiology Data Registry (NRDR) Dose Index Registry (DIR) with the [employer] (ACR). RADIATION OPTIMIZATION: All CT scans at this facility use at least one of these dose optimization te chniques: automated exposure control; mA and/or kV adjustment per patient size (includes targeted exa ms where dose is matched to clinical indication); or iterative reconstruction.
--- NOTE | 2023-09-13 16:23 | ED.GENADUL_ITS ---
Discharge Plan Disposition Patient Disposition: Admit to [facility] Condition: Stable Discharge Details Chief Complaint: Abd Prob Clinical Impression: Nephrolithiasis, Appendicitis Primary Care Provider: Nick Dave ED Provider: Nic Shell Home Meds and New Rx's Prescriptions: No Action sertraline 25 mg tablet 50 mg PO DAILY cholecalciferol (vitamin D3) 10 mcg (400 unit) capsule 40 mcg PO DAILY multivitamin Tablet 1 tab PO DAILY psyllium husk [Daily Fiber] 0.52 gram capsule 0.52 g PO DAILY sertraline 25 mg tablet 25 mg PO DAILY tamsulosin 0.4 mg capsule 0.4 mg PO DAILY propranolol 20 mg tablet 20 mg PO BID PRN HPI General Date/Time Provider Initiated Documentation: 09/13/23 16:07 . HPI Narrative: 52-year-old male history of irritable bowel syndrome presents with right lower quadrant pain over the last day. Denies history abdominal surgeries. Endorses some component of right flank discomfort earlier in the day, no vomiting no diarrhea. Related Data Home Medications Medication Instructions Recorded Confirmed cholecalciferol (vitamin D3) 10 40 mcg PO DAILY 07/02/21 09/13/23 mcg (400 unit) capsule multivitamin 1 tab PO DAILY 07/02/21 09/13/23 sertraline 25 mg tablet 50 mg PO DAILY 03/25/22 09/13/23 psyllium husk 0.52 gram capsule 0.52 g PO DAILY 05/13/22 09/13/23 (Daily Fiber) sertraline 25 mg tablet 25 mg PO DAILY 07/21/23 09/13/23 tamsulosin 0.4 mg capsule 0.4 mg PO DAILY 07/21/23 09/13/23 propranolol 20 mg tablet 20 mg PO BID PRN 08/05/23 09/13/23 Allergies Allergy/AdvReac Type Severity Reaction Status Date / Time Anesthetics - Amide Type - Allergy Other (See Verified 09/13/23 16:03 Select A Comment) propofol AdvReac Other (See Verified 09/13/23 16:03 Comment) anesthesia AdvReac Nausea Uncoded 09/13/23 16:03 General Stated Complaint: Abd Prob ARTURO: 3 Review of Systems Narrative: Review of Systems Constitutional: negative Eyes: negative ENT: negative Cardiovascular: negative Respiratory: negative Gastrointestinal: Right lower quadrant pain : negative Musculoskeletal: negative Skin: negative Neurologic: negative Psych: negative Exam Narrative Exam Narrative: Physical Examination General: alert, awake, cooperative, resting comfortably, no acute distress HEENT: normocephalic, atraumatic; PERRL, EOM intact, conjunctiva normal; no nasal discharge; moist mucous membranes, oral and pharyngeal mucosa normal, tolerating secretions Neck: supple, trachea midline; full ROM Chest: normal to inspection Respiratory: normal respiratory effort, speaking in full sentences, clear to auscultation, no wheezing, rales or rhonchi Cardiac: regular rate, regular rhythm, S1S2 intact, no murmurs rubs or gallops GI: abdomen soft, non-tender, non-distended; no palpable mass or hepatosplenomegaly Skin: no lesions, rashes or trauma appreciated Neuro: AAOx3, normal speech, moving all extremities Psych: Appropriate mood and affect Course Vital Signs Vital signs: Vital Signs Temperature 36.2 C L 09/13/23 16:00 Pulse 87 09/13/23 16:00 Respiratory Rate 16 09/13/23 16:00 Blood Pressure 151/75 H 09/13/23 16:00 Pulse Oximetry 96 09/13/23 16:00 Temperature 36.2 C L 09/13/23 16:00 Temperature Source Tympanic 09/13/23 16:00 Pulse 87 09/13/23 16:00 Respiratory Rate 16 09/13/23 16:00 Blood Pressure 151/75 H 09/13/23 16:00 Pulse Oximetry 96 09/13/23 16:00 Pain Level 5 09/13/23 16:00 Medical Decision Making 52-year-old male history of irritable bowel syndrome, presents with right lower quadrant pain over the last day began as right flank pain this morning, denies urinary symptoms denies history of abdominal surgeries, afebrile nontoxic nonperitoneal appears well-hydrated point tenderness on examination without guarding or rebounding in the right lower quadrant, consider early appendicitis versus colitis versus enteritis versus kidney stone versus UTI versus mesenteric adenitis will obtain screening labs fluids analgesia anti-inflammatory, CT abdomen pelvis 19: 19 patient resting comfortably no acute distress abdomen soft nontender nondistended, no nausea no vomiting hemodynamically stable, nonperitoneal, evidence of 5 mm right nephrolithiasis at level of UPJ, with evidence of hydronephrosis, microscopic hemateria on urinalysis, enlarged appendix with localized early inflammation, consider early appendicitis versus resultant from localized irritation from ureteral calculus; will start empiric Zosyn IV will observe patient here in department for repeat examination trial of tamsulosin and fluids as well as further analgesia; consulted with Dr. 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) Recurrent major depressive disorder (Acute) Urinary dribbling (Acute) Hyperlipidemia (Acute) BPH w urinary obs/LUTS (Acute) Bladder outlet obstruction (Acute) Anxiety (Chronic) Tobacco dependence (Acute) Smoker (Acute) Left rotator cuff tear (Acute) Sinusitis (Acute) Restless leg syndrome (Acute) Mixed hyperlipidemia (Acute) Sleep apnea (Acute) Vitamin D deficiency (Acute) Rotator cuff tear, right (Acute) Medical History (Updated 09/13/23 @ 20:10 by Nic Shell MD) Torticollis neck, Dx 2010 Obstructive sleep apnea on CPAP Ankle fracture, right plate and pins, ~2013 [facility] Bursitis of right shoulder Tendonitis of long head of biceps brachii of right shoulder Surgical History (Updated 03/25/22 @ 08:49 by DEBBI Mejia) History of arthroscopy of right shoulder (01/30/22) With bursal supraspinatus repair and biceps tenodesis [place] [facility] [place] [facility] [place] Social History Smoking/Tobacco Use Status: Current-Occasional Tobacco Type: cigars Tobacco: How many years used: 25 Smoking risk assessment performed?: Yes Alcohol Intake: current Alcohol Intake frequency: holidays/special occasions only Alcohol type: beer Drug use: Never Substance use type: does not use Current gender identity: male Do you feel safe at home: Yes Do you feel safe in your relationship?: Yes
[2023-09-13] MEDS: Normal Saline 1,000 ML 1000 ML IV (16:36)
[2023-09-13] MEDS: Ondansetron 4 MG/2 ML VIAL IVP (16:36)
[2023-09-13] MEDS: Ketorolac 15 MG/ML VIAL IVP (16:37)
[2023-09-13 16:51] LABS: Abs Immature Grans 0.04 10^3/uL (0.0-0.06); Absolute Basophil Count 0.03 10^3/uL (0.0-0.2); Absolute Eosinophil Count 0.13 10^3/uL (0.0-0.7); Absolute Lymphocyte Count 2.17 10^3/uL (1.2-3.4); Absolute Monocyte Count 0.55 10^3/uL (0.1-0.8); Absolute Neutrophil Count 6.23 10^3/uL (1.2-6.7); Basophils % 0.3 %; Eosinophils % 1.4 %; HCT 38.9 % (40.0-50.0); HGB 13.5 g/dL (13.5-17.5); Immature Grans % 0.4 %; Lymphocytes % 23.7 %; MCH 30.6 pg (27.0-33.0); MCHC 34.7 % (32.0-36.0); MCV 88 fL (80-95); MPV 11.3 fL (8.0-11.0); Neutrophils % 68.2 %; Platelet Count 231 10^3/uL (130-400); RBC 4.41 10^6/uL (4.36-5.78); RDW 11.8 % (11.8-14.1); RDW-SD 37.9 fL; WBC 9.15 10^3/uL (4.4-10.8)
[2023-09-13 17:06] LABS: ALT 27 U/L (16-63); AST 15 U/L (15-37); Albumin 4.1 g/dL (3.4-5.0); Alkaline Phosphatase 98 U/L (46-116); Anion Gap 7.8 mmol/L (3-11); BUN 17 mg/dL (7-18); Bilirubin, Total 0.46 mg/dL (0.2-1.0); CO2 27.2 mmol/L (21.0-32.0); Calcium 9.2 mg/dL (8.5-10.1); Chloride 106 mmol/L (98-107); Estimated GFR 91.12 (mL/min/1.73m2); Glucose 108 mg/dL (74-106); Lipase 26 U/L (16-77); Potassium 4.1 mmol/L (3.5-5.1); Sodium 141 mmol/L (136-145); Total Protein 7.1 g/dL (6.4-8.2)
[2023-09-13] MEDS: Normal Saline Flush 10 ML SYR IVP ×2 (17:11→22:21)
[2023-09-13] MEDS: Omnipaque 350 MG/ML 100 ML BTL IJ (17:12)
[2023-09-13] MEDS: Normal Saline - Diluent 50 ML VIAL IJ (17:12)
[2023-09-13 18:36] LABS: Bilirubin Negative (Negative); Blood Moderate (Negative); Clarity Clear (Clear); Glucose Negative (Negative); Ketones Negative (Negative); Leukocyte Esterase Negative (Negative); Nitrite Negative (Negative); Specific Gravity <= 1.005 (1.005-1.025); Urobilinogen 0.2 mg/dL (Up to 0.2); pH 5.5 (5-8)
--- NOTE | 2023-09-13 18:56 | DI.VRAD_ITS ---
PROCEDURE INFORMATION: Exam: CT Abdomen And Pelvis With Contrast Exam date and time: 09/13/2023 5:17 PM Age: 52 years old Clinical indication: Other: Rlq pain TECHNIQUE: Imaging protocol: Computed tomography of the abdomen and pelvis with contrast. Radiation optimization: All CT scans at this facility use at least one of these dose optimization techniques: automated exposure control; mA and/or kV adjustment per patient size (includes targeted exams where dose is matched to clinical indication); or iterative reconstruction. Contrast material: OMNI 350; Contrast volume: 100 ml; Contrast route: INTRAVENOUS (IV); COMPARISON: No relevant prior studies available. FINDINGS: Lungs: Minimal dependent atelectasis is seen in the lungs. There is no significant airspace consolidation. Liver: There is mild fatty infiltration of the liver. There is a small cyst left lobe near the dome measuring approximately 10 mm as measured on image 109 series 5. There is an adjacent smaller focus of low attenuation too small to characterize likely a tiny subcentimeter cyst. There is an additional focus of low attenuation within the right lobe of the liver likely small cyst as well. This measures approximately 5 mm in diameter on series 5, image 180. There is an additional tiny focus of low attenuation within the caudate lobe measuring approximately 6 mm in diameter on image 217 series 5. No other focal intrahepatic abnormality is identified. Gallbladder and biliary ducts: No radiopaque gallstones. No biliary ductal dilatation Pancreas: Pancreas is unremarkable Spleen: Spleen is mildly enlarged approximately 13.6 cm in maximum superior to inferior extent. There is a subtle small focus of hypoenhancement within the inferior aspect of the spleen for example best seen on series 5, image 308. It is nonspecific. No other focal intra splenic abnormality is identified. Adrenal glands: Adrenals are unremarkable Kidneys and ureters: There is a calculus in the right renal pelvis at the right ureteropelvic junction. There is mild right hydronephrosis. There is slightly delayed enhancement of the right kidney relative to the left. Calculus measures approximately 5 mm as measured on coronal reformatted image 72. No distal ureteral calculi are identified. No left renal calculi or hydronephrosis is identified. There is no evidence of a renal cortical mass. Stomach and bowel: Evaluation of the bowel is limited in the absence of oral contrast. There is no specific evidence of bowel obstruction. There is a new discrete mass or pneumatosis. There are few scattered colonic diverticuli particularly within the left colon but no findings to suggest acute diverticulitis. Appendix: The appendix is visualized in the right lower quadrant. It is mildly enlarged measuring approximately 10 mm in its maximum diameter. There may be very subtle inflammation in the adjacent periappendiceal fat, for example this finding is best seen on series 5, image 607 but this is equivocal. However early appendicitis is not excluded. Intraperitoneal space: Unremarkable. No free air. No significant fluid collection. Vasculature: The aorta is nonaneurysmal. There is no acute aortic abnormality. Lymph nodes: There are multiple small inguinal nodes particularly on the right. No significantly enlarged mesenteric or retroperitoneal nodes are appreciated. Urinary bladder: No bladder calculi are identified. Reproductive: Prostatic calcifications are noted. Prostate gland is mildly enlarged. Bones/joints: Degenerative changes are seen in the spine. There is no acute bony abnormality. Soft tissues: There is a small fat containing umbilical hernia. There is no significant subcutaneous abnormality IMPRESSION: 1. The appendix is mildly enlarged approximately 10 mm in diameter. There is some very minimal subtle inflammation adjacent to the appendix, early appendicitis is not excluded. Clinical correlation recommended. 2. Calculus at the right ureteropelvic junction with mild right hydronephrosis. No other radiopaque urinary tract calculi identified. 3. Mild splenomegaly. 4. Several small foci of low attenuation within the liver likely small cysts. Dictated and Authenticated by: Kristina De La Rosa MD. Ordering:YURIY Lucero MD
[2023-09-13 19:01] LABS: Bacteria Negative HPF (Negative); C & S Indicated? No; Crystals Rare Calcium Oxalate HPF (Negative); Epithelial Cells Negative HPF (Negative); Mucus Negative (Negative); WBC Negative HPF (0-5)
[2023-09-13] MEDS: Tamsulosin 0.4 MG CAPCR PO (19:34)
[2023-09-13] MEDS: ACETAMINOPHEN 1,000 MG/100 ML BTL 400 MG IVPB (19:44)
[2023-09-13] MEDS: PIPERACILLIN/TAZO 3.375 GM in Normal Saline 50 ML IVPB (19:45)
[2023-09-13 19:50] VITALS: BP 147/71; PULSE 81; RESP 16; TEMP 36.8; O2SAT 98
--- NOTE | 2023-09-13 20:28 | SCONE_ITS ---
Date of service: 09/13/23 Time of Service: 22:43 Assessment and Plan Assessment and plan (1) Appendicitis: Status: Acute Assessment and plan: 52-year-old man with right lower quadrant abdominal discomfort that has tap tenderness on focal examination. This is consistent with focal peritonitis. He is hemodynamically stable. His abdomen, outside of this finding, is completely benign. He has findings on CT scan consistent with early appendicitis. His condition has been in evolution only the last 8 hours or so at the most. I reviewed his CT scan myself, there is no significant free fluid and there is definitely no free air anywhere. There is some fat stranding in the right lower quadrant and the appendix is easily identified and appears dilated and fluid?filled. There is an incidentally seen small stone at the kidney pelvis causing mild hydronephrosis and it is about 5 mm in size. Overall, the patient does not have an ascending urinary tract infection/pyelonephritis such that is so severe that it is causing a translocation of bacteria from the retroperitoneum into the abdomen. I do not think there is any way to explain his appendiceal dilation and right lower quadrant discomfort and the fat stranding seen on CT from the urinary tract. In other words, I do NOT think the appendiceal dilation is the incidental finding but rather I think the small kidney stone is incidental finding in the setting of probable early appendicitis. I talked with the patient and his partner at the bedside in careful detail about the options of antibiotic therapy versus operative management. Overall the patient wants to proceed with operative management for definitive care. This is my usual practice considering that almost 1% of pathology for appendicitis will be an appendiceal neoplasm. Overall plan: Laparoscopic appendectomy tomorrow Outpatient follow-up with urology 50 minutes spent on admission and discussion History of Present Illness Narrative: The patient is a 52-year-old man who was in his usual state of health until earlier today he developed some right-sided pain. He says some of the pain might have been in his back he is not sure. But now, it is definitely in the right lower side of his belly. He has never had pain like this before. He is not having any issues urinating. He has never had intra-abdominal surgery. There is no nausea or vomiting. The pain he is having now he describes as constant, in 1 spot, nonmobile. 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) Recurrent major depressive disorder (Acute) Urinary dribbling (Acute) Hyperlipidemia (Acute) BPH w urinary obs/LUTS (Acute) Bladder outlet obstruction (Acute) Anxiety (Chronic) Tobacco dependence (Acute) Smoker (Acute) Left rotator cuff tear (Acute) Sinusitis (Acute) Restless leg syndrome (Acute) Mixed hyperlipidemia (Acute) Sleep apnea (Acute) Vitamin D deficiency (Acute) Rotator cuff tear, right (Acute) Medical History (Updated 09/13/23 @ 20:10 by Nic Shell MD) Torticollis neck, Dx 2010 Obstructive sleep apnea on CPAP Ankle fracture, right plate and pins, ~2014 [facility] Bursitis of right shoulder Tendonitis of long head of biceps brachii of right shoulder Surgical History (Updated 03/25/22 @ 08:49 by DEBBI Mejia) History of arthroscopy of right shoulder (01/30/22) With bursal supraspinatus repair and biceps tenodesis H/O nasal septoplasty [facility] [place]2019 S/P TURP [facility] [place] ~2018 Social History Smoking/Tobacco Use Status: Current-Occasional Tobacco Type: cigars Tobacco: How many years used: 25 Smoking risk assessment performed?: Yes Alcohol Intake: current Alcohol Intake frequency: holidays/special occasions only Alcohol type: beer Drug use: Never Substance use type: does not use Current gender identity: male Do you feel safe at home: Yes Do you feel safe in your relationship?: Yes Exam Narrative Exam Narrative: General: Nontoxic, comfortable and interactive. Does not appear in any distress. Neuro: Alert and oriented x 3 Psych: Good mood and affect, good insight and understanding his conditions Chest: Nonlabored breathing Heart: Regular Abdomen: Soft, nondistended, focally tender in the right lower quadrant with positive Wheat sign and tap tenderness as well. There is no significant rebound. There is no Rovsing sign. There is no obturator sign. Back/flank: The patient has mild flank tenderness on the right as compared with left. It is quite minimal but it is absolutely there. It is not the location of the pain he subjectively complains about however. Results Last Vital Signs Temp 98.2 F 09/13/23 19:50 Pulse 81 09/13/23 19:50 Resp 16 09/13/23 19:50 BP 147/71 H 09/13/23 19:50 Pulse Ox 98 09/13/23 19:50 Labs 09/13/23 16:35 09/13/23 16:35 Labs: Laboratory Results - last 24 hr 09/13/23 09/13/23 16:35 18:30 WBC 9.15 RBC 4.41 Hgb 13.5 Hct 38.9 L MCV 88 MCH 30.6 MCHC 34.7 RDW 11.8 Plt Count 231 MPV 11.3 H Immature Gran % 0.4 Neutrophils % 68.2 Lymphocytes % 23.7 Monocytes % 6.0 Eosinophils % 1.4 Basophils % 0.3 Nucleated RBC % 0.0 Absolute Neutrophils 6.23 Absolute Lymphocytes 2.17 Absolute Monocytes 0.55 Absolute Eosinophils 0.13 Absolute Basophils 0.03 Sodium 141 Potassium 4.1 Chloride 106 Carbon Dioxide 27.2 Anion Gap 7.8 BUN 17 Creatinine 1.0 Est GFR (CKD-EPI 2020) 91.12 Glucose 108 H Calcium 9.2 Total Bilirubin 0.46 AST 15 ALT 27 Alkaline Phosphatase 98 Total Protein 7.1 Albumin 4.1 Lipase 26 Urine Color Yellow Urine Clarity Clear Urine pH 5.5 Ur Specific [place] <= 1.005 Urine Protein Negative Urine Ketones Negative Urine Blood Moderate H Urine Nitrite Negative Urine Bilirubin Negative Urine Urobilinogen 0.2 Ur Leukocyte Esterase Negative Urine RBC 5-10 H Urine WBC Negative Ur Epithelial Cells Negative Urine Crystals Rare Calcium Oxalate Urine Bacteria Negative Urine Mucus Negative Ur Culture Indicated? No Urine Glucose Negative
[2023-09-13] MEDS: Lactated Ringers 1,000 ML 125 ML IV (22:21)
[2023-09-13] MEDS: Heparin 5,000 UNITS/ML VIAL 5000 UNITS SC (22:21)
[2023-09-13 22:43] VITALS: BP 123/71; PULSE 64; RESP 18; TEMP 36.2; O2SAT 96
[2023-09-14] VITALS (31 sets, daily range): BP systolic 101–144; BP diastolic 47–85; PULSE 52–74; RESP 9–22; TEMP 36.5–36.7; O2SAT 93–99; BMI 32.1
[2023-09-14] MEDS: PIPERACILLIN/TAZO 3.375 GM in Normal Saline 50 ML IVPB ×3 (02:31→14:00)
[2023-09-14] MEDS: ACETAMINOPHEN 1,000 MG/100 ML BTL 400 MG IVPB ×3 (03:24→21:23)
--- NOTE | 2023-09-14 06:31 | W.PM.PROGNOT ---
Date of Service Date of service: 09/14/23 Time of Service: 11:30 Assessment and Plan Assessment and plan (1) Appendicitis: Status: Acute Assessment and plan: 52-year-old man with acute appendicitis. Also has a small kidney stone on the right side incidentally. He is hemodynamically stable. We had a detailed discussion about the coinciding appendicitis and kidney stone at the same time and feel that the appendicitis is the most likely culprit here. The kidney stone is an outpatient urology follow-up scenario. After our discussion, he is very happy to have Dr. Cassidy do his surgery for him and is grateful that we are able to do this in order to get his procedure done she can be discharged home and have some food later. He does recognize that if his right flank discomfort, and even if some of his abdominal discomfort remains after the appendectomy, this may simply all be related to the kidney stone though I just do not think that is going to be the case. Overall plan remains the same: Laparoscopic appendectomy with Dr. Cassidy Outpatient urology follow-up Subjective Subjective Interval history since last seen: No overnight events. The patient still has had some intermittent abdominal discomfort in the right lower quadrant overnight. It is not worse than it was yesterday. He does notice that there is a little bit of pain in his right flank additionally on and off. Again, nothing worse. I did have a discussion with him at the bedside about having my partner, Dr. Cassidy do his surgery since I have an emergency surgery to do at this time. Exam Narrative Exam Narrative: General: Nontoxic, comfortable and interactive Neuro: Alert and oriented x 3 Psych: Good mood and affect, good insight and understanding into his condition Chest: Nonlabored breathing Heart: Regular Abdomen: Soft, nondistended, focal tenderness in the right lower quadrant without any obvious peritonitis. Objective Last Vital Signs Temp 97.9 F 09/14/23 05:55 Pulse 64 09/14/23 05:55 Resp 18 09/14/23 05:55 BP 116/67 09/14/23 05:55 Pulse Ox 97 09/14/23 05:55 Laboratory Results - last 24 hr 09/13/23 09/13/23 16:35 18:30 WBC 9.15 RBC 4.41 Hgb 13.5 Hct 38.9 L MCV 88 MCH 30.6 MCHC 34.7 RDW 11.8 Plt Count 231 MPV 11.3 H Immature Gran % 0.4 Neutrophils % 68.2 Lymphocytes % 23.7 Monocytes % 6.0 Eosinophils % 1.4 Basophils % 0.3 Nucleated RBC % 0.0 Absolute Neutrophils 6.23 Absolute Lymphocytes 2.17 Absolute Monocytes 0.55 Absolute Eosinophils 0.13 Absolute Basophils 0.03 Sodium 141 Potassium 4.1 Chloride 106 Carbon Dioxide 27.2 Anion Gap 7.8 BUN 17 Creatinine 1.0 Est GFR (CKD-EPI 2020) 91.12 Glucose 108 H Calcium 9.2 Total Bilirubin 0.46 AST 15 ALT 27 Alkaline Phosphatase 98 Total Protein 7.1 Albumin 4.1 Lipase 26 Urine Color Yellow Urine Clarity Clear Urine pH 5.5 Ur Specific [place] <= 1.005 Urine Protein Negative Urine Ketones Negative Urine Blood Moderate H Urine Nitrite Negative Urine Bilirubin Negative Urine Urobilinogen 0.2 Ur Leukocyte Esterase Negative Urine RBC 5-10 H Urine WBC Negative Ur Epithelial Cells Negative Urine Crystals Rare Calcium Oxalate Urine Bacteria Negative Urine Mucus Negative Ur Culture Indicated? No Urine Glucose Negative Time Spent with Patient Time Spent with Patient: <25 minutes Time was spent: preparing to see the patient(eg.review tests), obtaining and/or reviewing separately otained hiistory, ordering medications,tests, procedures, referring, communicating with other health regular senior care provider, indepentently interpreting results, counseling the patient and care coordination
[2023-09-14 07:24] LABS: Abs Immature Grans 0.02 10^3/uL (0.0-0.06); Absolute Basophil Count 0.03 10^3/uL (0.0-0.2); Absolute Eosinophil Count 0.13 10^3/uL (0.0-0.7); Absolute Lymphocyte Count 2.46 10^3/uL (1.2-3.4); Absolute Monocyte Count 0.43 10^3/uL (0.1-0.8); Absolute Neutrophil Count 3.89 10^3/uL (1.2-6.7); Basophils % 0.4 %; Eosinophils % 1.9 %; HCT 37.7 % (40.0-50.0); HGB 12.9 g/dL (13.5-17.5); Immature Grans % 0.3 %; Lymphocytes % 35.3 %; MCH 30.4 pg (27.0-33.0); MCHC 34.2 % (32.0-36.0); MCV 89 fL (80-95); MPV 11.8 fL (8.0-11.0); Monocytes % 6.2 %; Neutrophils % 55.9 %; Platelet Count 213 10^3/uL (130-400); RBC 4.24 10^6/uL (4.36-5.78); RDW 11.9 % (11.8-14.1); RDW-SD 37.5 fL; WBC 6.96 10^3/uL (4.4-10.8)
[2023-09-14 07:43] LABS: BUN 13 mg/dL (7-18); CO2 28.3 mmol/L (21.0-32.0); CREATININE 0.9 mg/dL (0.70-1.30); Calcium 8.7 mg/dL (8.5-10.1); Chloride 106 mmol/L (98-107); Glucose 92 mg/dL (74-106)
[2023-09-14 07:49] LABS: Anion Gap 7.7 mmol/L (3-11); Sodium 142 mmol/L (136-145)
[2023-09-14] MEDS: Lactated Ringers 1,000 ML 125 ML IV (07:55)
--- NOTE | 2023-09-14 11:41 | ANES.PREOP_ITS ---
General Info Date of Service Date Performed: 09/14/23 Height: 6 ft 2 in Weight: 113.5 kg Body Mass Index (BMI): 32.1 Surgical Procedure: Operation Date: 09/14/23 13:40 Proposed Procedure Side Surgeon p Appendectomy Laparoscopic Patricio Cassidy MD Meds Allergies and Home Medications Home Medication Medication Instructions Recorded cholecalciferol (vitamin D3) 10 40 mcg PO DAILY 07/02/21 mcg (400 unit) capsule multivitamin 1 tab PO DAILY 07/02/21 sertraline 25 mg tablet 50 mg PO DAILY 03/25/22 psyllium husk 0.52 gram capsule 0.52 g PO DAILY 05/13/22 (Daily Fiber) sertraline 25 mg tablet 25 mg PO DAILY 07/21/23 tamsulosin 0.4 mg capsule 0.4 mg PO DAILY 07/21/23 propranolol 20 mg tablet 20 mg PO BID PRN 08/05/23 Current Visit Medications: Current Medications Generic Name Dose Route Start Last Admin Trade Name Freq PRN Reason Stop Dose Admin Heparin Sodium (Porcine) 5,000 units 09/13/23 20:30 09/14/23 04:47 Heparin 5,000 Units/Ml Vial SC Not Given Q8H ANGELITA Ringer's Solution 1,000 mls @ 125 mls/hr 09/13/23 20:30 09/14/23 07:55 IV 125 mls/hr INFUSION ANGELITA Administration Piperacillin Sod/Tazobactam 50 mls @ 100 mls/hr 09/14/23 02:00 09/14/23 08:25 Sod 3.375 gm/ Sodium Chloride IVPB 100 mls/hr Q6H ANGELITA Administration Acetaminophen 1,000 mg in 100 mls @ 400 mls/hr 09/13/23 20:30 09/14/23 09:40 Ofirmev IVPB Infused Q6H ANGELITA Infusion IV Miscellaneous Supplies 1 each 09/13/23 20:30 Iv Access IV DIRECTED ANGELITA Morphine Sulfate 2 mg 09/13/23 20:28 Morphine 2 Mg/Ml Syr IVP Q2H PRN PRN Ondansetron HCl 4 mg 09/13/23 20:28 Ondansetron 4 Mg/2 Ml Vial IVP Q4H PRN PRN Sodium Chloride 0 ml 09/13/23 17:11 09/13/23 22:21 Normal Saline Flush 10 Ml Syr IVP 10 ml PRN PRN Administration Sodium Chloride 0 ml 09/13/23 20:28 Normal Saline Flush 10 Ml Syr IVP PRN PRN PFSH Active Problems Active Problems: Problem Status Onset Code Appendicitis K37 Nephrolithiasis N20.0 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 Recurrent major depressive disorder F33.9 Urinary dribbling N39.43 Hyperlipidemia E78.5 BPH w urinary obs/LUTS N40.1, N13.8 Bladder outlet obstruction N32.0 Anxiety F41.9 Tobacco dependence F17.200 Smoker F17.200 Left rotator cuff tear M75.102 Sinusitis J32.9 Restless leg syndrome G25.81 Mixed hyperlipidemia E78.2 Sleep apnea G47.30 Vitamin D deficiency E55.9 Rotator cuff tear, right M75.101 Medical History Medical History (Updated 09/13/23 @ 20:10 by Nic Shell MD) Torticollis neck, Dx 2010 Obstructive sleep apnea on CPAP Ankle fracture, right plate and pins, ~2013 [facility] Bursitis of right shoulder Tendonitis of long head of biceps brachii of right shoulder Medical History Comments:: As child PONV Surgical History Surgical History (Updated 03/25/22 @ 08:49 by DEBBI Mejia) History of arthroscopy of right shoulder (01/30/22) With bursal supraspinatus repair and biceps tenodesis H/O nasal [place] [facility] [place] [facility] [place] Tobacco Smoking/Tobacco Use Status: Current-Occasional Tobacco Type: cigars Alcohol Alcohol Intake: current Alcohol intake frequency: holidays/special occasions only Alcohol type: beer Substance Use Substance use: Never Substance use type: does not use Vital Signs and Lab Results Vital Signs Most Recent Vital Signs in EMR: Most Recent Vital Signs Temp Pulse Resp BP Pulse Ox 36.6 C 62 18 123/76 97 09/14/23 07:20 09/14/23 07:20 09/14/23 07:20 09/14/23 07:20 09/14/23 07:20 Lab Results 09/14/23 06:15 09/14/23 06:15 Blood Type / Crossmatch: 2 No Data to Display Complete Blood Count: 2 White Blood Count 6.96 10^3/uL (4.4-10.8) 09/14/23 06:15 Red Blood Count 4.24 10^6/uL (4.36-5.78) L 09/14/23 06:15 Hemoglobin 12.9 g/dL (13.5-17.5) L 09/14/23 06:15 Hematocrit 37.7 % (40.0-50.0) L 09/14/23 06:15 Platelet Count 213 10^3/uL (130-400) 09/14/23 06:15 Complete Metabolic Panel: 2 Sodium 142 mmol/L (136-145) 09/14/23 06:15 Potassium 4.0 mmol/L (3.5-5.1) 09/14/23 06:15 Chloride 106 mmol/L (98-107) 09/14/23 06:15 Carbon Dioxide 28.3 mmol/L (21.0-32.0) 09/14/23 06:15 BUN 13 mg/dL (7-18) 09/14/23 06:15 Creatinine 0.9 mg/dL (0.70-1.30) 09/14/23 06:15 Est GFR (CKD-EPI 2020) 103.40 (mL/min/1.73m2) 09/14/23 06:15 Calcium 8.7 mg/dL (8.5-10.1) 09/14/23 06:15 Albumin 4.1 g/dL (3.4-5.0) 09/13/23 16:35 Glucose 92 mg/dL (74-106) 09/14/23 06:15 Liver Function Panel: 2 Alanine Aminotransferase (ALT/SGPT) 27 U/L (16-63) 09/13/23 16: 35 Aspartate Amino Transf (AST/SGOT) 15 U/L (15-37) 09/13/23 16:35 Coagulation Panel: 2 No Data to Display Cardiac Panel: 2 No Data to Display Arterial Blood Gas: 2 No Data to Display Venous Blood Gas: 2 No Data to Display Pancreas Panel: 2 Lipase 26 U/L (16-77) 09/13/23 16:35 Thyroid Panel: 2 No Data to Display Infectious Disease: 2 No Data to Display Blood Cultures: 2 No Data to Display Toxicology Panel: 2 No Data to Display Anesthesia Assessment and Plan Anesthesia History Personal History: PONV Family History: No Family History of Anesthesia Complications Exercise Tolerance Exercise Tolerance: Metabolic Equivalents>4 Pertinent Negatives Pertinent Negatives: No Major Cardiovascular Symptoms or Complaints and No Major Pulmonary Symptoms or Complaints Cardiac & Pulmonary Exam Cardiac Exam: Normal S1/S2 Heart Sounds Pulmonary Exam: Clear Bilateral Breath Sounds Implantable Cardiac Device Does patient have a Pacemaker or an ICD?: No Airway Exam Known Difficult Airway: No Mallampati Class: 2 Mouth Opening: Normal (> 3cm) Thyromental Distance: Greater than 3 cm Neck Range of Motion: Full ROM Neck Circumference: Normal Teeth Condition: Normal Dentition ASA Classification ASA Score: ASA 2 Emergency Case?: No NPO Status NPO Status: NPO Clears >2 hours, Solids >8 hours Anesthesia Plan Resuscitation Status: Full Code Anesthesia Technique: General Anesthesia Airway Planned: Endotracheal Tube Monitors Used: Standard Monitors and SedLine Preoperative Comments:: Discussed reaction to general anesthesia, Propofol, and amide type local anesthetics. Patient reported he had an adverse reaction as a child, but tolerated his anesthesia for his shoulder surgery well and received all the previously mentioned anesthetics. Discussed removing drug allergies from his medical history and patient consented and verbalized understanding.
--- NOTE | 2023-09-14 11:47 | INITIAL_ITS ---
Date of service: 09/14/23 Time of Service: 11:48 Care Management Initial Assmt Initial Assessment Reason for Hospitalization: Acute appendicitis Functional Status/Living Situation Patient Presentation: Avtar was in the OR today, when CM attempted to visit with him. CM met with him briefly, after surgery, and he stated that he is independent and happy to be going home. He asked about medications; CM explained that his RN will review his discharge paperwork, including medications which he is being prescribed. His partner was in the room and will be transporting him home when ready. CM will continue to follow. Town of Residence: [place] Resides with: Spouse (Risa) Employment Status: Employed (Ice Hockey Coach) Medications Medication Management: No Issues/Barriers identified Advance Directives Advance Directives: Do you have an Advance Directive: N 08/06/23 11:38 AD On File at [facility]: N 08/06/23 11:38 Date Asked 09/13/23 09/13/23 16:28 AD Date Reviewed COLST On File at [facility] COLST Date Scanned Code Status Resuscitation Status Full Code Insurance Coverage/Financial Issues Insurance: BC/BS ACO Member: No Care Team Visit Care Team Role Provider Type Nick Dave Primary Care Provider NON-[facility] STAFF PHYSICIAN Nic Shell MD Emergency Provider [facility] STAFF PHYSICIAN Dagoberto Rodriguez MD Admit Provider [facility] STAFF PHYSICIAN Attending Provider Discharge Potential Discharge Needs: Surgical F/U Appt Anticipated Barriers to Discharge: Medical Status Patient/Family Education Needs: Review discharge instructions, discuss Ask Me Three Transportation: Private vehicle Plan: Anticipate Avtar will return home once medically cleared. His s/o will drive him home via private vehicle when ready. He will follow up with his PCP and his discharge plan of care. CM will continue to follow. 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) Recurrent major depressive disorder (Acute) Urinary dribbling (Acute) Hyperlipidemia (Acute) BPH w urinary obs/LUTS (Acute) Bladder outlet obstruction (Acute) Anxiety (Chronic) Tobacco dependence (Acute) Smoker (Acute) Left rotator cuff tear (Acute) Sinusitis (Acute) Restless leg syndrome (Acute) Mixed hyperlipidemia (Acute) Sleep apnea (Acute) Vitamin D deficiency (Acute) Rotator cuff tear, right (Acute) Medical History Torticollis neck, Dx 2010 Obstructive sleep apnea on CPAP Ankle fracture, right plate and pins, ~2014 [facility] Bursitis of right shoulder Tendonitis of long head of biceps brachii of right shoulder Surgical History History of arthroscopy of right shoulder (01/30/22) With bursal supraspinatus repair and biceps tenodesis H/O nasal septoplasty [facility] [place] ~[place] S/P TURP [facility] [place] ~2018 Social History Smoking/Tobacco Use Status: Current-Occasional Tobacco Type: cigars Tobacco: How many years used: 25 Smoking risk assessment performed?: Yes Alcohol Intake: current Alcohol Intake frequency: holidays/special occasions only Alcohol type: beer Drug use: Never Substance use type: does not use Housing: house Current gender identity: male Do you feel safe at home: Yes Do you feel safe in your relationship?: Yes SDOH(Care Management) Screening Will the Patient Participate in the Screening?: Yes Do you worry about having a steady place to live?: no Problems where you live: no known problems In the past 12 months, have you had to go without electric, gas, oil or water in your home?: no Have you or anyone in your house had to go without enough food to eat?: no Has lack of transportation kept you from medical appointments or from doing things needed for daily living?: no Has anyone in your support network made you feel unsafe for any reason?: no
[2023-09-14] MEDS: Lactated Ringers 1,000 ML 30 ML IV (13:27)
[2023-09-14] MEDS: Bupivacaine 0.25% Pres-Free W/EPI 30 ML VIAL (14:10)
--- NOTE | 2023-09-14 14:35 | APP_PTH ---
PATIENT: Avtar Lockhart LOC: U#:[id number] AGE/SX: 52/M ROOM: 206 RE09/13/[address]: Dagoberto Rodriguez : 1970 BED: A DIS: 09/15/2023 SPEC #: [id number] RECD: 09/14/23 18:18 STATUS: SOUBetty REQ #: [id number] GAMA: 09/14/23 14:[address]: Dagoberto Rodriguez DEPT: Surgical Specimen RECD BY: Gwen Stevenson ENTERED: 09/14/23 18:19 SP TYPE: Appendix OTHR DR: Nick Dave Tissues: 1 - APPENDIX NOT INCIDENTAL Procedures: GROSS AND MICRO LEVEL 3 Comments: [id number]
[2023-09-14] MEDS: fentaNYL 100 MCG/2 ML VIAL IVP (15:17)
--- NOTE | 2023-09-14 15:38 | W.PM.OP ---
Date of service: 09/14/23 Time of Service: 15:38 Operative Note Operative Note DATE OF PROCEDURE: 09/14/23 PRE-OP DIAGNOSIS: Acute appendicitis POST-OP DIAGNOSIS: same PROCEDURE: Laparoscopic appendectomy SURGEON: Patricio Cassidy SENIOR FIELD ENGINEER: Gayla Wallace ANESTHESIA TYPE: Local By Surgeon and General LMA/ETT Refer to Anesthesia Record ESTIMATED BLOOD LOSS: 10 PATHOLOGY: other (Appendix) COMPLICATIONS: None Patient was transported to: PACU Patient's condition: stable Indications: Avtar is a 52-year-old male with abdominal pain, and CT scan suggestive of acute appendicitis. Findings: Acute nonperforated appendicitis Procedure Description: After the induction of general anesthesia, I prepped and draped the anterior abdominal wall in the usual fashion. Next, I made an umbilical incision. I opened the fascia under direct vision. Using Vicryl stitches, I then affixed a 12 mm operating port to the umbilical fascia. I began insufflated the peritoneal cavity. Next, I inserted a 5 mm scope and examine the underlying tissue. There was no evidence of any trauma from the insertion. Next, with the assistance of the laparoscope, I placed 5 mm port in the left lower quadrant and suprapubic position. I then moved the scope into the left lower quadrant, and positioned the patient with some Trendelenburg and left side down. I started by examining the area of the right lower quadrant. I reflected the greater omentum cephalad and identified the terminal ileum. I traced this to the insertion at the cecum and then identified the base of the appendix at the confluence of the cecal tenia. Next, I mobilized the appendix which did appear acutely inflamed. I then used sequential firings of the LigaSure to divide the mesoappendix. Once this was complete I divided the appendix from the cecum at its base with a MICHAEL stapler. This required 2 staple bars to complete the division. There was no spillage. I placed the appendix into an Endo Catch bag and removed through the umbilical port site. I examined the surgical field. The staple line looked fine. There was no contamination or spillage and the surgical field was hemostatic. I then removed the port sites under the vision the laparoscope and closed the umbilical fascia with 0 Vicryl stitches. Finally, irrigated the skin and approximated the dermis with subcuticular absorbable suture.
--- NOTE | 2023-09-14 16:22 | W.ANESPOSTOP ---
Postoperative Evaluation Date, Time and Location Date Performed: 09/14/23 Time Performed: 15:38 Patient Location: PACU Vital Signs Most Recent Imported Vital Signs: Most Recent Vital Signs Temp Pulse Resp BP Pulse Ox 36.5 C 62 16 124/70 96 09/14/23 15:41 09/14/23 15:41 09/14/23 15:41 09/14/23 15:41 09/14/23 15:41 Pain Score Most Recent Pain Score: Most Recent Pain Score Pain Level 0 09/14/23 15:41 Assessment Mental Status: Awake (Alert & Oriented to Patient Baseline) Airway and Respiratory Function: Patent airway with normal (patient baseline) respiratory exam Cardiovascular Function: Hemodynamically Stable Hydration Status: Adequately Hydrated Nausea & Vomiting: No Nausea or Vomiting Pain: Pain is tolerable per patient Peripheral Nerve Block: Patient did not receive a nerve block
--- NOTE | 2023-09-14 16:46 | DSE_ITS ---
Date of service: 09/14/23 Time of Service: 16:46 DS: Diagnosis Discharge Diagnosis (1) Appendicitis: Status: Acute Asessment and Plan: Routine postoperative follow-up Discharge Plan Disposition Patient Disposition: Home Condition: Good Discharge Details Reason For Visit: Acute Appendicitis Admit Date/Time: 09/13/23 20:28 Admit Provider: Dagoberto Rodriguez Attending Provider: Dagoberto Rodriguez Primary Care Provider: Nick Dave Hospital Course Hospital Course: Ry is 52 years old. He comes to the emergency department with increasing right lower quadrant pain. He underwent a CT scan that demonstrated early appendicitis. He was started on antibiotics, and underwent laparoscopic appendectomy the following day. Operative findings support the diagnosis of acute nonperforated appendicitis. He was discharged home with outpatient foll ow-up. Incidentally, the CT scan also demonstrated a 3 mm calculus on the right ureteropelvic junction with some mild right-sided hydronephrosis. Home Meds and New Rx's Prescriptions: New tramadol 50 mg tablet 50 mg PO Q8H PRNQty: 12 0RF Rx Instructions: Take 1 tablet by mouth up to every 8 hours if needed for more severe pain. Continued sertraline 25 mg tablet 50 mg PO DAILY cholecalciferol (vitamin D3) 10 mcg (400 unit) capsule 40 mcg PO DAILY multivitamin Tablet 1 tab PO DAILY psyllium husk [Daily Fiber] 0.52 gram capsule 0.52 g PO DAILY sertraline 25 mg tablet 25 mg PO DAILY tamsulosin 0.4 mg capsule 0.4 mg PO DAILY propranolol 20 mg tablet 20 mg PO BID PRN Discharge Instructions Instructions: Appendectomy, Laparoscopic Surgery (DC), Kidney Stone, Adult ED Additional Instructions: Avtar, it was very nice meeting you in the hospital, and I hope you make a quick recovery from your appendicitis. As you probably remember, he came to the emergency department with right-sided abdominal pain. The CT scan showed inflammation of the appendix consistent with early appendicitis. Incidentally, there was a small stone near the connection of your ureter (the tube which drained your kidney) and your bladder. This appears to be causing a partial obstruction. The stone is quite small, and should pass on its own. With regards to your appendix, he underwent surgery to remove it. The findings in the operating room supported the diagnosis of acute appendicitis, and hopefully the surgery will help resolve your pain fairly quickly. As we talked about beforehand, please be careful with your lifting in the week or 2 to come. Keep it less than 5 pounds. You should be up and moving around a little more more each day. Expect to have some bruising around the incisions, which is extremely common. You should be washing the incisions with warm soapy water every day starting tomorrow. I have attached a little bit of information here about recovery from appendicitis and appendix removal, as well as information about kidney stones. The mainstay of treatment for your kidney stone at this point, is to stay well- hydrated and promote vigorous urine flow to help flush the stone free. The pain medications that I prescribed for appendicitis should help with any discomfort from that as well. Will see how you are doing in the office in follow-up, and at that time, we might order an ultrasound to make sure that that stone has passed. I will have the office reach out to you tomorrow to schedule a follow-up appointment for your appendix removal. If you need anything at all in the meantime, please do not hesitate to call at any point. 1. Resume all of your regular medications. 2. Alternate heating pads and ice packs over the incisions if needed for pain. I recommend 15-minute intervals. 3. Alternate [id number] Tylenol and ibuprofen every 6 hours [id number] for the first 2 days, then use as needed. Use the prescription for tramadol if needed for more severe pain. 4. Leave bandages in place for 24 hours, then remove. 5. Shower with warm soapy water. Pat dry. Use a bandaid if needed to protect your clothing. 6. No soaking or tub baths until I see you in the office. 7. No heavy lifting until I see you in the office. 8. Call the office (or go directly to the emergency room after hours) if you notice any of the following: Develop chills (warm to touch), or if you have a thermometer and your temperature is above 101 Difficulty breathing or difficultly swallowing Persistent vomiting Any bleeding ? exceeding one tablespoon 6. Call your physician if the site where your intravenous was started becomes red, swollen, painful, and warm to touch. Activity:: No heavy lifting Equipment/Supplies:: No Equipment Needed Diet:: As Tolerated DS: Summary Time Spent with Patient providing and/or coordinating discharge services: Less than 30 minutes Status at Discharge Functional status at discharge: independent ambulation Overall status at discharge: patient is progressing back to baseline Mental Status: mental status grossly normal Speech and Movement: speech and movement normal Mood: congruent mood Affect: normal affect Quality:SDOH Health Related Social Needs: No Data to Display Exam GI Other: Abdomen soft, nondistended, and appropriately tender after appendectomy. Psych Mental Status: mental status grossly normal Speech and Movement: speech and movement normal Mood: congruent mood Affect: normal affect DS: Data Vitals/I&O Vitals and I&O: Vital Signs Temperature 97.7 F 09/14/23 15:41 Temperature Source Skin 09/14/23 07:20 Pulse 62 09/14/23 15:41 Pulse Rhythm Regular 09/14/23 10:15 Pulse 64 09/14/23 15:41 Respiratory Rate 16 09/14/23 15:41 Respiratory Effort Normal, Non-Labored 09/14/23 10:15 Respiratory Depth Normal 09/14/23 10:15 Respiratory Pattern Normal 09/14/23 10:15 Blood Pressure 124/70 09/14/23 15:41 Blood Pressure Mean 88 09/14/23 15:41 Pulse Oximetry 96 09/14/23 15:41 Respiratory End-tidal CO2 44 09/14/23 15:41 Oxygen Delivery Method Room Air 09/14/23 15:41 Oxygen Flow Rate 0 09/14/23 15:41 Pain Level 0 09/14/23 15:41 Intake & Output 09/13/23 09/14/23 09/14/23 23:59 11:59 23:59 Intake Total 1150 / 1150 1300 / 2150 850 / 2150 Output Total 200 / 200 Balance 1150 / 1150 1300 / 1950 650 / 1950 Weight 244 lb 15.995 oz 250 lb 3.594 oz Intake: IV 1150 / 1150 1300 / 2150 850 / 2150 Output: Urine 200 / 200 Other: Urine Color Yellow Urine Appearance Clear Clear Clear Comment voids independently There was a small amount of blood in his penis when I removed the delong. Urine was clear. Emesis Description None Voiding Methods Toilet Data Completed and Pending Labs on day of discharge: Labs from last 24 hours 09/14/23 09/13/23 09/13/23 06:15 18:30 16:35 WBC 6.96 9.15 RBC 4.24 L 4.41 Hgb 12.9 L 13.5 Hct 37.7 L 38.9 L MCV 89 88 MCH 30.4 30.6 MCHC 34.2 34.7 RDW 11.9 11.8 Plt Count 213 231 MPV 11.8 H 11.3 H Immature Gran % 0.3 0.4 Neutrophils % 55.9 68.2 Lymphocytes % 35.3 23.7 Monocytes % 6.2 6.0 Eosinophils % 1.9 1.4 Basophils % 0.4 0.3 Nucleated RBC % 0.0 0.0 Absolute Neutrophils 3.89 6.23 Absolute Lymphocytes 2.46 2.17 Absolute Monocytes 0.43 0.55 Absolute Eosinophils 0.13 0.13 Absolute Basophils 0.03 0.03 Sodium 142 141 Potassium 4.0 4.1 Chloride 106 106 Carbon Dioxide 28.3 27.2 Anion Gap 7.7 7.8 BUN 13 17 Creatinine 0.9 1.0 Est GFR (CKD-EPI 2020) 103.40 91.12 Glucose 92 108 H Calcium 8.7 9.2 Total Bilirubin 0.46 AST 15 ALT 27 Alkaline Phosphatase 98 Total Protein 7.1 Albumin 4.1 Lipase 26 Urine Color Yellow Urine Clarity Clear Urine pH 5.5 Ur Specific [place] <= 1.005 Urine Protein Negative Urine Ketones Negative Urine Blood Moderate H Urine Nitrite Negative Urine Bilirubin Negative Urine Urobilinogen 0.2 Ur Leukocyte Esterase Negative Urine RBC 5-10 H Urine WBC Negative Ur Epithelial Cells Negative Urine Crystals Rare Calcium Oxalate Urine Bacteria Negative Urine Mucus Negative Ur Culture Indicated? 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) Recurrent major depressive disorder (Acute) Urinary dribbling (Acute) Hyperlipidemia (Acute) BPH w urinary obs/LUTS (Acute) Bladder outlet obstruction (Acute) Anxiety (Chronic) Tobacco dependence (Acute) Smoker (Acute) Left rotator cuff tear (Acute) Sinusitis (Acute) Restless leg syndrome (Acute) Mixed hyperlipidemia (Acute) Sleep apnea (Acute) Vitamin D deficiency (Acute) Rotator cuff tear, right (Acute) Medical History Torticollis neck, Dx 2010 Obstructive sleep apnea on CPAP Ankle fracture, right plate and pins, ~2013 [facility] Bursitis of right shoulder Tendonitis of long head of biceps brachii of right shoulder Surgical History History of arthroscopy of right shoulder (01/30/22) With bursal supraspinatus repair and biceps tenodesis H/O nasal septoplasty [facility] [place] ~[place] S/P TURP [facility] [place] ~2018 Social History Smoking/Tobacco Use Status: Current-Occasional Tobacco Type: cigars Tobacco: How many years used: 25 Smoking risk assessment performed?: Yes Alcohol Intake: current Alcohol Intake frequency: holidays/special occasions only Alcohol type: beer Drug use: Never Substance use type: does not use Housing: house Current gender identity: male Do you feel safe at home: Yes Do you feel safe in your relationship?: Yes Time Spent with Patient Time Spent with Patient: <45 minutes Time was spent: counseling the patient and care coordination
[2023-09-14] MEDS: Lactated Ringers 1,000 ML 1000 ML IV (17:59)
--- NOTE | 2023-09-14 18:19 | PDOC.CMDIS ---
Date of service: 09/14/23 Time of Service: 18:19 LACE Index Scoring Tool Questions: Length of Stay (in days): 1 Was the patient admitted via the E.D.?: Yes E.D. Visits: 0 Answers: Total Score: 4 Risk of Readmission: Low Risk Care Management Discharge Plan Reason for Hospitalization: Acute appendicitis Discharge Plan: Avtar will return home with no new services. His partner will drive him home via private vehicle. He will follow up with surgical services and his discharge plan of care. He is happy to be going home. Patient/Family Education Needs: Review discharge instructions and limitations, discussion of self care needs including ask me three. SDOH Health Related Social Needs: No Data to Display
[2023-09-14] MEDS: Normal Saline-STERILE FIELD 0.9% 10 ML SYR (18:55)
[2023-09-14] MEDS: MORPHine 2 MG/ML SYR IVP ×2 (19:13→20:43)
[2023-09-14] MEDS: traMADol 50 MG TAB PO (19:14)
[2023-09-14] MEDS: Lidocaine 2% Jelly 11 ML SYR ×3 (19:14→21:00)
[2023-09-14] MEDS: Normal Saline Flush 10 ML SYR (19:14)
--- NOTE | 2023-09-14 20:02 | W.PM.PROGNOT ---
Date of Service Date of service: 09/14/23 Time of Service: 20:09 Assessment and Plan Assessment and plan (1) Urethral bleeding: Status: Acute Assessment and plan: 52-year-old man with urethra bleeding acutely. I suspect this is somehow Harris trauma in the setting of prior TURP. I highly doubt this is related to the kidney stone but I guess it could be. Since the nursing staff was unable to get another catheter in, I called a urology consultation. I discussed the case with Dr. Townsend over the phone and he has provided guidance to the nursing staff on next best steps. If they are unable to get in a smaller catheter using his methods, he will come in and place one. Overall plan for the urethral bleeding: Per urology Subjective Subjective Interval history since last seen: Right before planning to discharge the patient, he began to have blood clots passing from his urethra. He could even pull the blood clots out of his urethra. He started having difficulty urinating and developing suprapubic discomfort. He did have a catheter placed in the operating room. At my direction, nursing staff attempted to place another Harris catheter but were unable to pass a coud?. Exam Narrative Exam Narrative: General: Uncomfortable but handling the distress well Neuro: Alert and oriented x 3 Psych: Mild anxiety but handling the situation well. Good insight and understanding Objective Last Vital Signs Temp 97.7 F 09/14/23 19:32 Pulse 74 09/14/23 19:32 Resp 22 09/14/23 19:32 BP 138/79 09/14/23 19:32 Pulse Ox 99 09/14/23 19:32 Laboratory Results - last 24 hr 09/14/23 06:15 WBC 6.96 RBC 4.24 L Hgb 12.9 L Hct 37.7 L MCV 89 MCH 30.4 MCHC 34.2 RDW 11.9 Plt Count 213 MPV 11.8 H Immature Gran % 0.3 Neutrophils % 55.9 Lymphocytes % 35.3 Monocytes % 6.2 Eosinophils % 1.9 Basophils % 0.4 Nucleated RBC % 0.0 Absolute Neutrophils 3.89 Absolute Lymphocytes 2.46 Absolute Monocytes 0.43 Absolute Eosinophils 0.13 Absolute Basophils 0.03 Sodium 142 Potassium 4.0 Chloride 106 Carbon Dioxide 28.3 Anion Gap 7.7 BUN 13 Creatinine 0.9 Est GFR (CKD-EPI 2020) 103.40 Glucose 92 Calcium 8.7 Time Spent with Patient Time Spent with Patient: 25-34 minutes Time was spent: referring, communicating with other health child care center administrator, counseling the patient and care coordination
[2023-09-14] MEDS: Normal Saline Flush 10 ML SYR IVP (20:44)
[2023-09-14] MEDS: Lidocaine 2% Jelly 11 ML SYR UR (21:00)
[2023-09-15] VITALS (20 sets, daily range): BP systolic 94–149; BP diastolic 53–98; PULSE 65–89; RESP 13–24; TEMP 36.6–37.2; O2SAT 94–100; BMI 32.5
[2023-09-15] MEDS: Normal Saline Flush 10 ML SYR IVP (02:36)
[2023-09-15] MEDS: ACETAMINOPHEN 1,000 MG/100 ML BTL 400 MG IVPB (02:36)
--- NOTE | 2023-09-15 06:58 | UCONE_ITS ---
Date of service: 09/15/23 Time of Service: 09:33 Assessment and Plan Assessment and plan (1) Urethral bleeding: Status: Acute Assessment and plan: His catheter is not draining especially well, so I suspect he may have some clot up in the bladder. I have suggested a cystoscopy and clot evacuation. If we find any active bleeding I can certainly cauterize it. If no active bleeding is identified, we may be able to leave his catheter out after the procedure. History of Present Illness History of Present Illness Chief Complaint: Hematuria Narrative: This is a 52-year-old gentleman who is currently hospitalized for appendicitis. He underwent appendectomy yesterday. During the postoperative time, he noted large clots coming from the urethra. He was unable to void. Initial attempts at placing an irrigating catheter were not successful. An 18 Guinean coud? tipped catheter was successfully placed and the urine has remained bloody since then. He has a history of a transurethral resection of the prostate done [place] [facility] [place]. The procedure was done for benign disease. 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 We are unaware of any more recent cystoscopic procedures. No bladder tumors were identified on either of his previous procedures. He is currently followed by the providers at [facility] for urinary dribbling and pelvic floor dysfunction. He has seen pelvic floor physical therapists and has tried both alpha blockers and beta 3 agonists with minimal change in his symptoms. He is not routinely on any any coagulants. He did have an intraoperative catheter during his appendectomy but there was no indication of bleeding at that time. He is a previous smoker. Review of Systems Narrative: No fevers or chills No vision change or dysphasia No diabetes or thyroid dysfunction Sleep apnea. 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) Recurrent major depressive disorder (Acute) Urinary dribbling (Acute) Hyperlipidemia (Acute) BPH w urinary obs/LUTS (Acute) Bladder outlet obstruction (Acute) Anxiety (Chronic) Tobacco dependence (Acute) Smoker (Acute) Left rotator cuff tear (Acute) Sinusitis (Acute) Restless leg syndrome (Acute) Mixed hyperlipidemia (Acute) Sleep apnea (Acute) Vitamin D deficiency (Acute) Rotator cuff tear, right (Acute) Medical History Torticollis neck, Dx 2010 Obstructive sleep apnea on CPAP Ankle fracture, right plate and pins, ~2013 [facility] Bursitis of right shoulder Tendonitis of long head of biceps brachii of right shoulder Surgical History History of arthroscopy of right shoulder (01/30/22) With bursal supraspinatus repair and biceps tenodesis H/[place] nasal septoplasty [facility] [place] S/P [place]URP [facility] [place] Social History Smoking/Tobacco Use Status: Current-Occasional Tobacco Type: cigars Tobacco: How many years used: 25 Smoking risk assessment performed?: Yes Alcohol Intake: current Alcohol Intake frequency: holidays/special occasions only Alcohol type: beer Drug use: Never Substance use type: does not use Housing: house Current gender identity: male Do you feel safe at home: Yes Do you feel safe in your relationship?: Yes Exam Narrative Exam Narrative: He is a bit anxious but does not appear acutely ill His vital signs are documented elsewhere His abdomen is soft with no guarding or rebound tenderness The Harris catheter is in place and is draining dark urine. I attempted to hand irrigate the catheter. The catheter irrigates freely, but I am not able to withdraw bladder contents easily. He is awake and alert I reviewed his recent CT scan on the PACS system. There is no evidence of a renal mass. He does have a small right UPJ stone. There were no suspicious masses in the bladder at the time of the scan. His renal function is normal He tends to have his PSA levels monitored by the providers at [facility], but I do not have access to his most recent level ordered in March 2023. Results Last Vital Signs Temp 36.8 C 09/15/23 02:49 Pulse 70 09/15/23 02:49 Resp 16 09/15/23 02:49 BP 123/70 09/15/23 02:49 Pulse Ox 96 09/15/23 02:49 Labs 09/14/23 06:15 09/14/23 06:15 Labs: Laboratory Results - last 24 hr 09/14/23 06:15 WBC 6.96 RBC 4.24 L Hgb 12.9 L Hct 37.7 L MCV 89 MCH 30.4 MCHC 34.2 RDW 11.9 Plt Count 213 MPV 11.8 H Immature Gran % 0.3 Neutrophils % 55.9 Lymphocytes % 35.3 Monocytes % 6.2 Eosinophils % 1.9 Basophils % 0.4 Nucleated RBC % 0.0 Absolute Neutrophils 3.89 Absolute Lymphocytes 2.46 Absolute Monocytes 0.43 Absolute Eosinophils 0.13 Absolute Basophils 0.03 Sodium 142 Potassium 4.0 Chloride 106 Carbon Dioxide 28.3 Anion Gap 7.7 BUN 13 Creatinine 0.9 Est GFR (CKD-EPI 2020) 103.40 Glucose 92 Calcium 8.7
--- NOTE | 2023-09-15 08:27 | W.PM.PROGNOT ---
Date of Service Date of service: 09/15/23 Time of Service: 08:27 Objective Last Vital Signs Temp 98.2 F 09/15/23 07:44 Pulse 68 09/15/23 07:44 Resp 18 09/15/23 07:44 BP 127/72 09/15/23 07:44 Pulse Ox 100 09/15/23 07:44
[2023-09-15] MEDS: Tamsulosin 0.4 MG CAPCR PO (08:50)
[2023-09-15] MEDS: Sertraline 25 MG TAB 75 MG PO (08:50)
[2023-09-15] MEDS: Multivitamin TAB 1 TAB PO (08:50)
[2023-09-15] MEDS: Cholecalciferol (Vitamin D3) 400 UNIT TAB PO (08:50)
[2023-09-15] MEDS: MORPHine 2 MG/ML SYR IVP (10:11)
[2023-09-15] MEDS: Normal Saline Flush 10 ML SYR (10:18)
[2023-09-15 11:31] LABS: HGB 12.3 g/dL (13.5-17.5); MCH 30.2 pg (27.0-33.0); MCHC 34.2 % (32.0-36.0); MCV 89 fL (80-95); MPV 11.1 fL (8.0-11.0); Platelet Count 221 10^3/uL (130-400); RBC 4.07 10^6/uL (4.36-5.78); RDW 11.9 % (11.8-14.1); RDW-SD 38.5 fL; WBC 11.31 10^3/uL (4.4-10.8)
--- NOTE | 2023-09-15 11:34 | PHA.REVIEW2 ---
Pharmacy Admission Review Admission Clinical Review Admission Pharmacy Review: Urethral bleeding (Acute) Appendicitis (Acute) No Known Allergies Allergy (Verified 09/14/23 14:16) Resuscitation Status Full Code Height 6 ft 2 in Weight 115 kg Pharmacy Admission Review Renal Dosing Renal Dosing: BUN 13 mg/dL (7-18) 09/14/23 06:15 Creatinine 0.9 mg/dL (0.70-1.30) 09/14/23 06:15 Medications needing adjustments: Reviewed (CrCl 130.9 mL/min) List of meds needing interventions: Current medications are okay Anticoagulation Anticoagulation: Hgb 12.3 g/dL (13.5-17.5) L 09/15/23 11:06 Hct 36.0 % (40.0-50.0) L 09/15/23 11:06 Plt Count 221 10^3/uL (130-400) 09/15/23 11:06 Creatinine 0.9 mg/dL (0.70-1.30) 09/14/23 06:15 DVT Prophylaxis: Reviewed (Had order for heparin q8h but was discontinued - procedure today) Opiate Usage Evaluate Pain Scale/Pains Meds: Reviewed (PRN IVP morphine) Scheduled Bowel Reg ordered if on Opiates?: No Relevant Labs Relevant Labs: Sodium 142 mmol/L (136-145) 09/14/23 06:15 Potassium 4.0 mmol/L (3.5-5.1) 09/14/23 06:15 Chloride 106 mmol/L (98-107) 09/14/23 06:15 Electrolytes, C-Reactive P, ESR: Reviewed (WBC increased from 6.96 to 11.31, Hgb decreased from 12.9 to 12.3) Cardiac Review BP, HR, EF%: Reviewed (HR and BP WNL) QTc Review QTc: Reviewed (No EKG on file) IV to PO Switch IV Medications: Reviewed (ondansetron, morphine and cefazolin) Home Meds Home Med List reviewed: Reviewed Current Meds Current Medication Order Review: Reviewed Pharmacy Antibiotic Review Pharmacy Antibiotic Activity: Reviewed, no change Comments: Cefazolin preop x1 today
--- NOTE | 2023-09-15 12:26 | ANES.PREOP_ITS ---
General Info Date of Service Date Performed: 09/15/23 Height: 6 ft 2 in Weight: 115 kg Body Mass Index (BMI): 32.5 Surgical Procedure: Operation Date: 09/14/23 13:40 Proposed Procedure Side Surgeon p Appendectomy Laparoscopic Patricio Cassidy MD Actual Procedure Side Surgeon p Appendectomy Laparoscopic Not Applicable Patricio Cassidy MD Pre-Op Diagnosis Post-Op Diagnosis Appendicitis Appendicitis Operation Date: 09/15/23 12:10 Proposed Procedure Side Surgeon p Cystoscopy w/Clot Evacuation, Possible Fulguration Murray Townsend MD Meds Allergies and Home Medications Allergies Allergy/AdvReac Type Severity Reaction Status Date / Time No Known Allergies Allergy Verified 09/14/23 14:16 Home Medication Medication Instructions Recorded cholecalciferol (vitamin D3) 10 40 mcg PO DAILY 07/02/21 mcg (400 unit) capsule multivitamin 1 tab PO DAILY 07/02/21 sertraline 25 mg tablet 50 mg PO DAILY 03/25/22 psyllium husk 0.52 gram capsule 0.52 g PO DAILY 05/13/22 (Daily Fiber) sertraline 25 mg tablet 25 mg PO DAILY 07/21/23 tamsulosin 0.4 mg capsule 0.4 mg PO DAILY 07/21/23 propranolol 20 mg tablet 20 mg PO BID PRN 08/05/23 tramadol 50 mg tablet 50 mg PO Q8H PRN #12 tabs 09/14/23 Current Visit Medications: Current Medications Generic Name Dose Route Start Last Admin Trade Name Freq PRN Reason Stop Dose Admin Acetaminophen 1,000 mg 09/15/23 08:44 Acetaminophen 500 Mg Tab PO Q6H PRN PRN Cholecalciferol 400 unit 09/15/23 08:30 09/15/23 08:50 Cholecalciferol (Vitamin D3) 400 Unit Tab PO 400 unit DAILY ANGELITA Administration Ringer's Solution 1,000 mls @ 30 mls/hr 09/14/23 15:15 09/15/23 08:20 IV Infused INFUSION ANGELITA Infusion Cefazolin Sodium/Dextrose 2 gm in 50 mls @ 100 mls/hr 09/15/23 09:45 Ancef Duplex IVPB 09/15/23 16:00 PREOP ANGELITA IV Miscellaneous Supplies 1 each 09/13/23 20:30 Iv Access IV DIRECTED ANGELITA Morphine Sulfate 2 mg 09/13/23 20:28 09/15/23 10:11 Morphine 2 Mg/Ml Syr IVP 2 mg Q2H PRN PRN Administration Multivitamins 1 tab 09/15/23 08:30 09/15/23 08:50 Multivitamin Tab PO 1 tab DAILY ANGELITA Administration Ondansetron HCl 4 mg 09/13/23 20:28 Ondansetron 4 Mg/2 Ml Vial IVP Q4H PRN PRN Propranolol HCl 20 mg 09/14/23 15:50 Propranolol 20 Mg Tab PO BID PRN PRN ANXIETY Psyllium Hydrophilic Mucilloid 1 each 09/15/23 08:30 09/15/23 09:54 Psyllium Pkt PO Not Given DAILY ANGELITA Sertraline HCl 75 mg 09/15/23 08:30 09/15/23 08:50 Sertraline 25 Mg Tab PO 75 mg DAILY ANGELITA Administration Sodium Chloride 0 ml 09/15/23 10:18 Normal Saline Flush 10 Ml Syr IVP PRN PRN Tamsulosin HCl 0.4 mg 09/15/23 08:30 09/15/23 08:50 Tamsulosin 0.4 Mg Capcr PO 0.4 mg DAILY ANGELITA Administration Tramadol HCl 50 mg 09/14/23 15:50 09/14/23 19:14 Tramadol 50 Mg Tab PO 50 mg Q4H PRN PRN Administration PFSH Active Problems Active Problems: Problem Status Onset Code Urethral bleeding N36.8 Appendicitis K37 Nephrolithiasis N20.0 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 Recurrent major depressive disorder F33.9 Urinary dribbling N39.43 Hyperlipidemia E78.5 BPH w urinary obs/LUTS N40.1, N13.8 Bladder outlet obstruction N32.0 Anxiety F41.9 Tobacco dependence F17.200 Smoker F17.200 Left rotator cuff tear M75.102 Sinusitis J32.9 Restless leg syndrome G25.81 Mixed hyperlipidemia E78.2 Sleep apnea G47.30 Vitamin D deficiency E55.9 Rotator cuff tear, right M75.101 Medical History Medical History Torticollis neck, Dx 2010 Obstructive sleep apnea on CPAP Ankle fracture, right plate and pins, ~2014 [facility] Bursitis of right shoulder Tendonitis of long head of biceps brachii of right shoulder Medical History Comments:: As child PONV Surgical History Surgical History History of arthroscopy of right shoulder (01/30/22) With bursal supraspinatus repair and biceps tenodesis [place] nasal sept[place] [facility] [place] [facility] [place] Tobacco Smoking/Tobacco Use Status: Current-Occasional Tobacco Type: cigars Alcohol Alcohol Intake: current Alcohol intake frequency: holidays/special occasions only Alcohol type: beer Substance Use Substance use: Never Substance use type: does not use Vital Signs and Lab Results Vital Signs Most Recent Vital Signs in EMR: Most Recent Vital Signs Temp Pulse Resp BP Pulse Ox 36.8 C 68 18 127/72 100 09/15/23 07:44 09/15/23 07:44 09/15/23 07:44 09/15/23 07:44 09/15/23 07:44 Lab Results 09/15/23 11:06 09/14/23 06:15 Blood Type / Crossmatch: 2 No Data to Display Complete Blood Count: 2 White Blood Count 11.31 10^3/uL (4.4-10.8) H 09/15/23 11:06 Red Blood Count 4.07 10^6/uL (4.36-5.78) L 09/15/23 11:06 Hemoglobin 12.3 g/dL (13.5-17.5) L 09/15/23 11:06 Hematocrit 36.0 % (40.0-50.0) L 09/15/23 11:06 Platelet Count 221 10^3/uL (130-400) 09/15/23 11:06 Complete Metabolic Panel: 2 Sodium 142 mmol/L (136-145) 09/14/23 06:15 Potassium 4.0 mmol/L (3.5-5.1) 09/14/23 06:15 Chloride 106 mmol/L (98-107) 09/14/23 06:15 Carbon Dioxide 28.3 mmol/L (21.0-32.0) 09/14/23 06:15 BUN 13 mg/dL (7-18) 09/14/23 06:15 Creatinine 0.9 mg/dL (0.70-1.30) 09/14/23 06:15 Est GFR (CKD-EPI 2020) 103.40 (mL/min/1.73m2) 09/14/23 06:15 Calcium 8.7 mg/dL (8.5-10.1) 09/14/23 06:15 Albumin 4.1 g/dL (3.4-5.0) 09/13/23 16:35 Glucose 92 mg/dL (74-106) 09/14/23 06:15 Liver Function Panel: 2 Alanine Aminotransferase (ALT/SGPT) 27 U/L (16-63) 09/13/23 16: 35 Aspartate Amino Transf (AST/SGOT) 15 U/L (15-37) 09/13/23 16:35 Coagulation Panel: 2 No Data to Display Cardiac Panel: 2 No Data to Display Arterial Blood Gas: 2 No Data to Display Venous Blood Gas: 2 No Data to Display Pancreas Panel: 2 Lipase 26 U/L (16-77) 09/13/23 16:35 Thyroid Panel: 2 No Data to Display Infectious Disease: 2 No Data to Display Blood Cultures: 2 No Data to Display Toxicology Panel: 2 No Data to Display Anesthesia Assessment and Plan Anesthesia History Personal History: PONV Family History: No Family History of Anesthesia Complications Exercise Tolerance Exercise Tolerance: Metabolic Equivalents>4 Pertinent Negatives Pertinent Negatives: No Symptoms of GERD, No Major Cardiovascular Symptoms or Complaints, No Major Pulmonary Symptoms or Complaints and No History of CVA/TIA Cardiac & Pulmonary Exam Cardiac Exam: Normal S1/S2 Heart Sounds Pulmonary Exam: Clear Bilateral Breath Sounds Implantable Cardiac Device Does patient have a Pacemaker or an ICD?: No Airway Exam Known Difficult Airway: No Mallampati Class: 2 Mouth Opening: Normal (> 3cm) Thyromental Distance: Greater than 3 cm Neck Range of Motion: Full ROM Neck Circumference: Normal Teeth Condition: Normal Dentition ASA Classification ASA Score: ASA 2 Emergency Case?: Yes NPO Status NPO Status: NPO Clears >2 hours, Solids >8 hours Anesthesia Plan Resuscitation Status: Full Code Anesthesia Technique: General Anesthesia Airway Planned: Natural Airway Monitors Used: Standard Monitors
[2023-09-15] MEDS: Lactated Ringers 1,000 ML 30 ML IV (12:33)
--- NOTE | 2023-09-15 13:19 | W.PM.OP ---
Date of service: 09/15/23 Time of Service: 13:19 Operative Note Operative Note DATE OF PROCEDURE: 09/14/23 PRE-OP DIAGNOSIS: clot retention POST-OP DIAGNOSIS: same urethral false passage PROCEDURE: cystoscopy with clot evacuation SURGEON: Murray Townsend ANESTHESIA TYPE: Local By Surgeon Refer to Anesthesia Record ESTIMATED BLOOD LOSS: 5 PATHOLOGY: other Patient was transported to: PACU Patient's condition: stable Implants: 16 Bangl[place]hi Councill tipped delong with 10 cc sterile water in balloon Indications: This is a 52-year-old gentleman who underwent appendectomy yesterday. During the postoperative time, he began passing clots from the urethra. He was unable to void. The staff was unable to place an irrigating catheter, so an 18 [place] tip catheter was passed. When I saw him this morning, I was not able to successfully hand irrigate his catheter. He is brought to the operating room for clot evacuation Findings: large amount clot in bladder clot and evidence urethral false passage @ prostate no active bleeding Procedure Description: The patient was given IV antibiotics and brought to the operating room on 09/15/2023. After successful induction of general anesthesia without intubation, he was placed in the dorsal lithotomy position. His indwelling catheter balloon was deflated and the catheter was removed. His genitalia was then prepped with Betadine. 2% Xylocaine jelly was instilled into the urethra to act as a local anesthetic. A 22 Bangladeshi rigid cystoscope was passed through the urethra into the bladder. The urethra and bladder were inspected using a 30 degree lens. The pendulous, bulbous and membranous urethra appeared normal with no strictures. There was some hyperemia down toward the membranous urethra but no active bleeding. The prostatic urethra showed a large amount of adherent clot out toward the verumontanum. The bladder neck was somewhat elevated in the scope was passed through the bladder neck into the bladder. A large amount of clot was found within the bladder. All the clot was evacuated using a Xavier syringe. Once the clot was evacuated from the bladder, I was able to visualize the mucosa. No active bleeding was seen and no papillary or nodular bladder tumors were seen. The scope was then withdrawn back into the prostatic urethra and beneath the clot there did appear to be a mucosal injury/false passage. Again, no active bleeding was seen from the site. I then passed the scope back into the bladder and passed a zip wire through the lumen of the scope until it was visible in the bladder. The scope was removed leaving the wire in place. A 16 [place] tip catheter was then passed over the wire, through the urethra and into the bladder. The catheter balloon was inflated with 10 cc of sterile water and the catheter was hooked to gravity drainage. The patient tolerated this procedure well with no complications. There was minimal acute blood loss but numerous blood clots removed from the bladder.
--- NOTE | 2023-09-15 13:32 | W.ANESPOSTOP ---
Postoperative Evaluation Date, Time and Location Date Performed: 09/15/23 Time Performed: 13:32 Patient Location: PACU Vital Signs Most Recent Imported Vital Signs: Most Recent Vital Signs Temp Pulse Resp BP Pulse Ox 37.2 C 89 20 94/53 L 96 09/15/23 13:30 09/15/23 13:27 09/15/23 13:27 09/15/23 13:27 09/15/23 13:27 Most Recent Vital Signs Temp Pulse Resp BP Pulse Ox 36.5 C 62 16 124/70 96 09/14/23 15:41 09/14/23 15:41 09/14/23 15:41 09/14/23 15:41 09/14/23 15:41 Pain Score Most Recent Pain Score: Most Recent Pain Score Pain Level 2 09/15/23 13:30 Assessment Mental Status: Awake (Alert & Oriented to Patient Baseline) Airway and Respiratory Function: Patent airway with normal (patient baseline) respiratory exam Cardiovascular Function: Hemodynamically Stable Hydration Status: Adequately Hydrated Nausea & Vomiting: No Nausea or Vomiting Pain: Pain is tolerable per patient Peripheral Nerve Block: Patient did not receive a nerve block
--- NOTE | 2023-09-15 13:49 | W.PM.DS.N ---
Date of service: 09/15/23 Time of Service: 13:49 DS: Diagnosis Discharge Diagnosis (1) Urethral bleeding: Status: Acute Asessment and Plan: Patient will have a Delong at discharge. Under direction of urology. Will follow-up with urology. There are no restrictions postop appendectomy. Discharge Plan Disposition Patient Disposition: Home Condition: Improving Discharge Details Reason For Visit: Acute Appendicitis Admit Date/Time: 09/13/23 20:28 Admit Provider: Dagoberto Rodriguez Attending Provider: Dagoberto Rodriguez Primary Care Provider: Nick Dave Hospital Course Hospital Course: Ry is 52 years old. He comes to the emergency department with increasing right lower quadrant pain. He underwent a CT scan that demonstrated early appendicitis. He was started on antibiotics, and underwent laparoscopic appendectomy the following day. Operative findings support the diagnosis of acute nonperforated appendicitis. Incidentally, the CT scan also demonstrated a 3 mm calculus on the right ureteropelvic junction with some mild right-sided hydronephrosis. He was set up for discharge home however shortly after being discharged but before leaving the hospital, he started having hemorrhage from his urethra. Urology was consulted and a catheter was placed and he was kept overnight. The next morning he was still having pain and blood clots were preventing urine outflow from the catheter and he was taken to the operating room with urology where copious clot was irrigated out. Nothing further was bleeding at that time. The bleeding was reportedly from traumatic injury at the level of the prostate. Urology recommended the catheter stay in for 5 days and he will follow-up with them in the outpatient setting. Home Meds and New Rx's Prescriptions: New tramadol 50 mg tablet 50 mg PO Q8H PRNQty: 12 0RF Rx Instructions: Take 1 tablet by mouth up to every 8 hours if needed for more severe pain. Continued sertraline 25 mg tablet 50 mg PO DAILY cholecalciferol (vitamin D3) 10 mcg (400 unit) capsule 40 mcg PO DAILY multivitamin Tablet 1 tab PO DAILY psyllium husk [Daily Fiber] 0.52 gram capsule 0.52 g PO DAILY sertraline 25 mg tablet 25 mg PO DAILY tamsulosin 0.4 mg capsule 0.4 mg PO DAILY propranolol 20 mg tablet 20 mg PO BID PRN Discharge Instructions Instructions: Appendectomy, Laparoscopic Surgery (DC), Kidney Stone, Adult ED Additional Instructions: Avtar, it was very nice meeting you in the hospital, and I hope you make a quick recovery from your appendicitis. As you probably remember, he came to the emergency department with right-sided abdominal pain. The CT scan showed inflammation of the appendix consistent with early appendicitis. Incidentally, there was a small stone near the connection of your ureter (the tube which drained your kidney) and your bladder. This appears to be causing a partial obstruction. The stone is quite small, and should pass on its own. With regards to your appendix, he underwent surgery to remove it. The findings in the operating room supported the diagnosis of acute appendicitis, and hopefully the surgery will help resolve your pain fairly quickly. As we talked about beforehand, please be careful with your lifting in the week or 2 to come. Keep it less than 5 pounds. You should be up and moving around a little more more each day. Expect to have some bruising around the incisions, which is extremely common. You should be washing the incisions with warm soapy water every day starting tomorrow. I have attached a little bit of information here about recovery from appendicitis and appendix removal, as well as information about kidney stones. The mainstay of treatment for your kidney stone at this point, is to stay well-hydrated and promote vigorous urine flow to help flush the stone free. The pain medications that I prescribed for appendicitis should help with any discomfort from that as well. Will see how you are doing in the office in follow-up, and at that time, we might order an ultrasound to make sure that that stone has passed. I will have the office reach out to you tomorrow to schedule a follow-up appointment for your appendix removal. If you need anything at all in the meantime, please do not hesitate to call at any point. 1. Resume all of your regular medications. 2. Alternate heating pads and ice packs over the incisions if needed for pain. I recommend 15-minute intervals. 3. Alternate [id number] Tylenol and ibuprofen every 6 hours [id number] for the first 2 days, then use as needed. Use the prescription for tramadol if needed for more severe pain. 4. Leave bandages in place for 24 hours, then remove. 5. Shower with warm soapy water. Pat dry. Use a bandaid if needed to protect your clothing. 6. No soaking or tub baths until I see you in the office. 7. No heavy lifting until I see you in the office. 8. Call the office (or go directly to the emergency room after hours) if you notice any of the following: Develop chills (warm to touch), or if you have a thermometer and your temperature is above 101 Difficulty breathing or difficultly swallowing Persistent vomiting Any bleeding ? exceeding one tablespoon 6. Call your physician if the site where your intravenous was started becomes red, swollen, painful, and warm to touch. Stand Alone Forms: Nursing Discharge Form Referrals: Dagoberto Rodriguez MD [ [facility] STAFF PHYSICIAN] - (Please call the office in the morning to set your follow up apt) Activity:: No heavy lifting Equipment/Supplies:: No Equipment Needed Diet:: As Tolerated Discharge Orders Discharge Orders: Discharge Order (Routine); Ordered 09/14/23 Ordered By: Patricio Cassidy DS: Summary Time Spent with Patient providing and/or coordinating discharge services: Greater than 30 minutes Status at Discharge Functional status at discharge: independent ambulation Overall status at discharge: patient is back to baseline Mental Status: mental status grossly normal Speech and Movement: speech and movement normal Mood: congruent mood Affect: normal affect Quality:SDOH Health Related Social Needs: No Data to Display Exam Narrative Exam Narrative: General: Nontoxic, comfortable and interactive Neuro: Alert and oriented x 3 Psych: Good mood and affect, good insight and understanding into his condition Abdomen: Soft, nondistended and grossly nontender. Incision sites look perfect. Delong catheter: Clear urine with no blood clots! Psych Mental Status: mental status grossly normal Speech and Movement: speech and movement normal Mood: congruent mood Affect: normal affect DS: Data Vitals/I&O Vitals and I&O: Vital Signs Temperature 98.8 F 09/15/23 13:44 Temperature Source Skin 09/15/23 07:44 Pulse 72 09/15/23 13:44 Pulse Rhythm Regular 09/15/23 08:50 Pulse 86 09/15/23 13:44 Respiratory Rate 24 09/15/23 13:44 Respiratory Effort Normal, Non-Labored 09/15/23 08:50 Respiratory Depth Normal 09/15/23 08:50 Respiratory Pattern Normal 09/15/23 08:50 Blood Pressure 124/98 H 09/15/23 13:44 Blood Pressure Mean 105 09/15/23 13:44 Pulse Oximetry 98 09/15/23 13:44 Respiratory End-tidal CO2 34 09/15/23 13:44 Oxygen Delivery Method Room Air 09/15/23 13:35 Oxygen Flow Rate 0 09/15/23 07:44 Pain Level 2 09/15/23 13:35 Comment pt reports 3/10 penis pain. 09/15/23 02:49 Intake & Output 09/14/23 09/15/23 09/15/23 23:59 11:59 23:59 Intake Total 2333.333 / 3633.333 844 / 1044 200 / 1044 Output Total 1150 / 1150 2100 / 2105 5 / 2104 Balance 1183.333 / 2483.333 -1256 / -1061 195 / -1061 Weight 253 lb 8.505 oz 253 lb 8.505 oz Intake: IV 2333.333 / 3633.333 400 / 600 200 / 600 Oral 444 / 444 Output: Urine 1150 / 1150 2100 / 2100 Estimated Blood Loss 5 / 5 Other: Urine Color Dark Red Dark Red Yellow Urine Appearance Hematuria Clots Clear Comment delong in draining gross hematuria. delong not draining, Townsend aware, said not to do anything, OR @ 12:00 Inserted after procedure. 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 (Acute) Recurrent major depressive disorder (Acute) Urinary dribbling (Acute) Hyperlipidemia (Acute) BPH w urinary obs/LUTS (Acute) Bladder outlet obstruction (Acute) Anxiety (Chronic) Tobacco dependence (Acute) Smoker (Acute) Left rotator cuff tear (Acute) Sinusitis (Acute) Restless leg syndrome (Acute) Mixed hyperlipidemia (Acute) Sleep apnea (Acute) Vitamin D deficiency (Acute) Rotator cuff tear, right (Acute) Medical History Torticollis neck, Dx 2010 Obstructive sleep apnea on CPAP Ankle fracture, right plate and pins, ~2014 [facility] Bursitis of right shoulder Tendonitis of long head of biceps brachii of right shoulder Surgical History History of arthroscopy of right shoulder (01/30/22) With bursal supraspinatus repair and biceps tenodesis H/O nasal septoplasty [facility] [place] S/P [place]URP [facility] [place] ~2018 Social History Smoking/Tobacco Use Status: Current-Occasional Tobacco Type: cigars Tobacco: How many years used: 25 Smoking risk assessment performed?: Yes Alcohol Intake: current Alcohol Intake frequency: holidays/special occasions only Alcohol type: beer Drug use: Never Substance use type: does not use Housing: house Current gender identity: male Do you feel safe at home: Yes Do you feel safe in your relationship?: Yes Time Spent with Patient Time Spent with Patient: 45-69 minutes Time was spent: preparing to see the patient(eg.review tests), obtaining and/or reviewing separately otained hiistory, referring, communicating with other health care management associate, indepentently interpreting results, counseling the patient and care coordination
--- NOTE | 2023-09-15 19:52 | NUR.NOTE ---
On September 13,. Patient patient had Lap Appendectomy done. During hand off from the day shift CC Nurse Patricia, she reported since patient presented to the Med-surg unit post surgery he has been unable to void and was removing lots of clots from his penis. The day shift nurse and the oncoming nurse was in the process of inserting a Delong catheter. While the hand off process continues, the said nurses came and reported they were unsuccessful with inserting a catheter for the patient. Bladder scan was initiated at this time with 650mls of urine was noted in the bladder. The Surgeon Dr. Rodriguez was informed and presented to the floor to assess patient. This quality analyst/technical writer along with Nurse Patricia went to assess patient, who at this time is sitting in the bathroom on the toilet. He state he was in extensive pain in his bladder because he wants to void and he was unable to do so. This quality analyst/technical writer attempted to pass Delong catheter using a Caude swazi (22) which was unsuccessful. Patient was informed that the urologist will be contacted for further intervention. Dr. Townsend informed this quality analyst/technical writer to insert 2 lidocaine jelly into the urethra and to use a size swazi 18 caude. Size 18 caude catheter was used for delong isertion as recommended by surgeon same was successful and patient had approximately 650 bloody urine urine in less than 5mins
== END 2023-09-15 15:42 | disposition home or self-care (01) ==
LOC: ER 20:10 → MS 21:54
PROVIDERS: Surgery; Urology; Admitting Provider Student in an Organized Health Care Education/Training Program; Emergency Provider Emergency Medicine; PCP Family Medicine; Visit Provider Student in an Organized Health Care Education/Training Program
PROC: 0DTJ4ZZ Resection of Appendix, Percutaneous Endoscopic Approach (ICD-10-PCS; CPT 44970; principal; 2023-09-14 13:30)
PROC: 0TJB8ZZ Inspection of Bladder, Via Natural or Artificial Opening Endoscopic (ICD-10-PCS; CPT 52000; principal; 2023-09-15 12:00)
DX: K35.80 Unspecified acute appendicitis (principal); N32.89 Other specified disorders of bladder; F33.9 Major depressive disorder, recurrent, unspecified; N40.1 Benign prostatic hyperplasia with lower urinary tract symptoms; N13.8 Other obstructive and reflux uropathy; G25.81 Restless legs syndrome; E78.2 Mixed hyperlipidemia; E55.9 Vitamin D deficiency, unspecified; G47.33 Obstructive sleep apnea (adult) (pediatric); F17.290 Nicotine dependence, other tobacco product, uncomplicated; N36.5 Urethral false passage; N13.0 Hydronephrosis with ureteropelvic junction obstruction
CPT/HCPCS: 44970; 52001; 00123; 36415; 80048; 80053; 83690; 85027; 96361; 96365; 96366; 96368; 96375; 96376; 99285; 74177; 81003; 81015; 85025; 88304; G0378; J0131; J1100; J1644; J1885; J2001; J2250; J2270; J2405; J2543; J2704; J3010; J3490

== ENCOUNTER → 2023-09-22 15:02 | Outpatient (CLI) | payer BC, SELFPAY ==
--- NOTE | 2023-09-22 11:30 | DI.RAD_ITS ---
Exam(s) XR ABDOMEN FLAT PLATE EXAM: 2D digital imaging was performed. CLINICAL HISTORY: N20.0 Calculus of Kidney, Nephrolithiasis; monitor right stone. COMPARISON: CT CT ABDOMEN PELVIS W from 09/13/2023 TECHNIQUE: Supine views of the abdomen performed. FINDINGS: BOWEL GAS PATTERN: Nondistended. CALCIFICATIONS: No radiopaque calcifications. OSSEOUS STRUCTURES: Normal for age. IMPRESSION: 1. Nonobstructive bowel gas pattern. 2. No radiopaque calculi. DATA REPOSITORY: RADIATION DOSE DELIVERED:
== END ==
PROVIDERS: PCP Family Medicine; Visit Provider Urology
DX: N20.0 Calculus of kidney (principal)
CPT/HCPCS: 74018

== ENCOUNTER 2023-09-28 14:45 | Outpatient (REF) | payer BC, SELFPAY | END 2023-09-28 14:46 | disposition home or self-care (01) | LOC: LBN 14:45 | PROVIDERS: PCP Family Medicine; Visit Provider Urology | DX: R30.0 Dysuria (principal); R50.9 Fever, unspecified | CPT/HCPCS: 87086 ==

== ENCOUNTER 2023-09-30 11:25 | Outpatient (CLI) | payer BC, SELFPAY ==
[2023-09-30 10:56] LABS: Abs Immature Grans 0.06 10^3/uL (0.0-0.06); Absolute Basophil Count 0.03 10^3/uL (0.0-0.2); Absolute Eosinophil Count 0.04 10^3/uL (0.0-0.7); Absolute Lymphocyte Count 1.23 10^3/uL (1.2-3.4); Absolute Monocyte Count 0.46 10^3/uL (0.1-0.8); Absolute Neutrophil Count 6.58 10^3/uL (1.2-6.7); Basophils % 0.4 %; Eosinophils % 0.5 %; HCT 37.3 % (40.0-50.0); HGB 12.9 g/dL (13.5-17.5); Immature Grans % 0.7 %; Lymphocytes % 14.6 %; MCH 30.2 pg (27.0-33.0); MCHC 34.6 % (32.0-36.0); MCV 87 fL (80-95); MPV 9.9 fL (8.0-11.0); Monocytes % 5.5 %; Neutrophils % 78.3 %; Platelet Count 228 10^3/uL (130-400); RBC 4.27 10^6/uL (4.36-5.78); RDW 12.2 % (11.8-14.1); RDW-SD 38.9 fL
== END 2023-09-30 11:26 | disposition home or self-care (01) ==
LOC: LBO 11:27
PROVIDERS: PCP Family Medicine; Visit Provider Surgery
DX: R50.9 Fever, unspecified (principal); Z90.49 Acquired absence of other specified parts of digestive tract
CPT/HCPCS: 36415; 85025

== ENCOUNTER 2024-01-29 02:01 | Outpatient (CLI) | payer BC, SELFPAY ==
[2024-01-29 18:43] LABS: PSA, Diagnostic 1.2 ng/mL (<=3.5)
== END 2024-01-29 02:02 | disposition home or self-care (01) ==
LOC: LBO 02:01
PROVIDERS: PCP Family Medicine; Visit Provider Urology
DX: N40.1 Benign prostatic hyperplasia with lower urinary tract symptoms (principal); N13.8 Other obstructive and reflux uropathy
CPT/HCPCS: 36415; 84153

== ENCOUNTER 2024-04-01 00:24 | Outpatient (CLI) | payer OTHER, SELFPAY ==
--- NOTE | 2024-04-01 12:28 | DI.RAD_ITS ---
Exam(s) XR SCAPULA LT EXAM: XR SCAPULA LT CLINICAL HISTORY: Benign neoplasm of lt scapula, D16.02, lesion on the scapula. TECHNIQUE: 2D digital imaging was performed. COMPARISON: CR XR SHOULDER LT COMPLETE 2+V from 04/03/2023 MR MR UPPER JOINT LT WO from 06/26/[address] UPPER EXTREMITY LT WO from 07/14/2023 FINDINGS: BONES: No acute fracture is present. No bony destructive lesion is seen. The small cystic appearing lesion in the acromion is not visible. Small area of sclerosis noted on CT is also not visible. JOINTS: No dislocation present. SOFT TISSUE: Normal. IMPRESSION: Lesions seen on prior MRI and CT are not visible on the current plain films. DATA REPOSITORY: RADIATION DOSE DELIVERED:
== END 2024-04-01 00:44 ==
PROVIDERS: PCP Family Medicine; Visit Provider Physician Assistant
DX: D16.02 Benign neoplasm of scapula and long bones of left upper limb (principal)
CPT/HCPCS: 73010

== ENCOUNTER 2024-11-06 06:14 | Emergency (ER) | payer OTHER, SELFPAY ==
--- NOTE | 2024-11-06 06:15 | DI.CT_ITS ---
Exam(s) CT RENAL COLIC WO EXAM: CT RENAL COLIC WO CLINICAL HISTORY: R flank/LQ pain. TECHNIQUE: Imaging Protocol: Axial computed tomography images with coronal and sagittal reformatted images were created and reviewed CONTRAST MATERIAL: Intravenous: none Oral: None COMPARISON: CT CT ABDOMEN PELVIS W from 09/29/2023 FINDINGS: VISUALIZED LUNG BASES: No nodules nor pleural effusions evident. ABDOMEN: There is no ascites. LIVER: There are no obvious focal hepatic lesions evident of this noninfused study. GALLBLADDER/BILIARY: No obvious gallbladder pathology. CBD is not dilated. PANCREAS: No evidence of pancreatic mass nor dilatation of the pancreatic duct. SPLEEN: Mild splenomegaly. Craniocaudal measurement of the spleen is 13.5 cm. There are no intrasplenic lesions evident on this non-infused CT study. ADRENALS: There are no significant adrenal masses. KIDNEYS:Left kidney unremarkable. However, there is significant right-sided hydronephrosis and perinephric stranding which is due to an obstructing calculus at the right ureteropelvic junction which measures 9 x 6 mm. The ureter below this level is not dilated and does not contain calculi. URINARY BLADDER: There are no radiopaque calculi seen in the urinary bladder.. No masses. No intraluminal clots seen ABDOMINAL AORTA: Normal size. LYMPH NODES: There is no retroperitoneal nor paraaortic adenopathy. ABDOMINAL WALL: No evidence of significant anterior abdominal wall nor inguinal hernia. GI: There is no evidence of bowel obstruction, free air, nor abscess. PELVIS: LYMPH NODES: There is no intrapelvic nor inguinal adenopathy. GI: There has been prior appendectomy. No abnormal mass or collection in this region.No evidence of sigmoid diverticulitis. URINARY BLADDER: No calculi nor obvious masses evident. Pelvic ureters are not dilated. REPRODUCTIVE: Prostate and seminal vesicles appear unremarkable. Pelvic ureters are not dilated. OSSEOUS: No fractures nor significant osseous lesions. No significant disc space narrowing. No listhesis. IMPRESSION: 1. There is significant right-sided hydronephrosis and perinephric stranding due to an obstructing 9 x 6 mm calculus in the upper right ureter at the ureteropelvic junction level. The opposite-left kidney appears unremarkable as does the urinary bladder. Preliminary virtual Radiology report was reviewed. RADIATION DOSE DELIVERED: 778.94mGy.cm Total DLP DATA REPOSITORY: All CT scans at this facility are submitted to the National Radiology Data Registry (NRDR) Dose Index Registry (DIR) with the [employer] ([employer]). RADIATION OPTIMIZATION: All CT scans at this facility use at least one of these dose optimization techniques: automated exposure control; mA and/or kV adjustment per patient size (includes targeted exams where dose is matched to clinical indication); or iterative reconstruction.
[2024-11-06 06:19] VITALS: BP 147/99; PULSE 68; RESP 18; O2SAT 100
--- NOTE | 2024-11-06 06:26 | W.ED.GENAD ---
Discharge Plan Discharge Details Chief Complaint: Abd Prob Primary Care Provider: Nick Dave ED Provider: Vel Frost [place] Meds and New Rx's Prescriptions: No Action sertraline 25 mg tablet 50 mg PO DAILY cholecalciferol (vitamin D3) 10 mcg (400 unit) capsule 40 mcg PO DAILY multivitamin Tablet 1 tab PO DAILY psyllium husk [Daily Fiber] 0.52 gram capsule 0.52 g PO DAILY sertraline 25 mg tablet 25 mg PO DAILY propranolol 20 mg tablet 20 mg PO BID PRN HPI General Mode of arrival: ambulatory. Date/Time Provider Initiated Documentation: 11/06/24 06:16. Limitations to Documentation: no limitations. Information obtained by: patient, RN notes reviewed and old records reviewed. HPI Narrative: Patient presents to ED with right-sided flank and lower abdominal pain. Initially began out as back pain yesterday afternoon. Subsequently became worse and is now more flank and right lower quadrant. Feels very similar to previous kidney stone. He has had nausea but no vomiting. He has been trying to hydrate and flush the stone through. He is no longer able to tolerate the pain and came in to ED for evaluation. He has not had any hematuria. He denies any fever. He appears to be very uncomfortable. Related Data Home Medications ?Medication ?Instructions ?Recorded ?Confirmed cholecalciferol (vitamin D3) 10 40 mcg PO DAILY 07/02/21 01/22/24 mcg (400 unit) capsule multivitamin 1 tab PO DAILY 07/02/21 01/22/24 sertraline 25 mg tablet 50 mg PO DAILY 03/25/22 01/22/24 psyllium husk 0.52 gram capsule 0.52 g PO DAILY 05/13/22 01/22/24 (Daily Fiber) sertraline 25 mg tablet 25 mg PO DAILY 07/21/23 01/22/24 propranolol 20 mg tablet 20 mg PO BID PRN 08/05/23 01/22/24 Allergies Allergy/AdvReac Type Severity Reaction Status Date / Time No Known Allergies Allergy Verified 04/20/24 10:08 General Stated Complaint: Abd Prob ARTURO: 3 Exam Narrative Exam Narrative: Const: WDWN male appears uncomfortable. VS per triage. HEENT: NC/AT. Normal facial exam. Neck: Supple. Trachea midline. Lungs: Tachypneic due to pain GI: Soft/ND/NT. Neuro: A+O x 3. Normal speech, mentation, gait. Cranial nerves II - XII grossly intact. No gross motor or sensory deficit. Ext: No C/C/E. Course Vital Signs Vital signs: Vital Signs Pulse 68 11/06/24 06:19 Respiratory Rate 18 11/06/24 06:19 Blood Pressure 147/99 H 11/06/24 06:19 Pulse Oximetry 100 11/06/24 06:19 Pulse 68 11/06/24 06:19 Respiratory Rate 18 11/06/24 06:19 Blood Pressure 147/99 H 11/06/24 06:19 Blood Pressure Position Supine 11/06/24 06:19 Pulse Oximetry 100 11/06/24 06:19 Oxygen Delivery Method Room Air 11/06/24 06:19 Oxygen Flow Rate 0 11/06/24 06:19 Pain Level 9 11/06/24 06:19 Medical Decision Making Patient presenting to ED with right flank and lower quadrant pain which is sharp and colicky in nature and similar to previous stone. He is not febrile here. His abdomen is benign. He appears quite uncomfortable. IV established and laboratory studies sent. Will give fluids, pain control, antiemetic and obtain CT scan. Will need urinalysis when able to provide sample. CBC with a white count of 14.7. Kidney function is normal. CT scan and urinalysis pending. Patient will be signed out to oncoming ED provider, Dr. Lugo, for follow-up of imaging results and urinalysis. Medical Records Medical records reviewed: Yes I reviewed the patient's medical records. Lab Data Lab results reviewed: Yes I reviewed the patient's lab results. 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) Recurrent major depressive disorder (Acute) Urinary dribbling (Acute) Hyperlipidemia (Acute) BPH w urinary obs/LUTS (Acute) Bladder outlet obstruction (Acute) Anxiety (Chronic) Tobacco dependence (Acute) Smoker (Acute) Left rotator cuff tear (Acute) Sinusitis (Acute) Restless leg syndrome (Acute) Mixed hyperlipidemia (Acute) Sleep apnea (Acute) Vitamin D deficiency (Acute) Rotator cuff tear, right (Acute) Medical History Bladder neck contracture Urethral bleeding Torticollis neck, Dx 2010 Obstructive sleep apnea on CPAP Ankle fracture, right plate and pins, ~2013 [facility] Bursitis of right shoulder Tendonitis of long head of biceps brachii of right shoulder Surgical History S/P laparoscopic appendectomy (~09/2023) History of arthroscopy of right shoulder (01/30/22) With bursal supraspinatus repair and biceps tenodesis [place] [facility] [place] [facility] [place] Social History Smoking/Tobacco Use Status: Current-Occasional Tobacco Type: cigars Tobacco: How many years used: 25 Smoking risk assessment performed?: Yes Alcohol Intake: current Alcohol Intake frequency: holidays/special occasions only Alcohol type: beer Drug use: Never Substance use type: does not use Housing: house Current gender identity: male Do you feel safe at home: Yes Do you feel safe in your relationship?: Yes
[2024-11-06] MEDS: Ondansetron 4 MG/2 ML VIAL IVP (06:36)
[2024-11-06] MEDS: Ketorolac 15 MG/ML VIAL IVP (06:37)
[2024-11-06] MEDS: Normal Saline 1,000 ML 1000 ML IV ×2 (06:37→08:00)
[2024-11-06] MEDS: MORPHine 4 MG/ML SYR IVP (06:37)
[2024-11-06 06:38] LABS: Abs Immature Grans 0.06 10^3/uL (0.0-0.06); HCT 39.3 % (40.0-50.0); HGB 14.0 g/dL (13.5-17.5); Immature Grans % 0.4 %; MCH 30.5 pg (27.0-33.0); MCHC 35.6 % (32.0-36.0); MCV 86 fL (80-95); MPV 11.0 fL (8.0-11.0); Platelet Count 250 10^3/uL (130-400); RBC 4.59 10^6/uL (4.36-5.78); RDW 11.9 % (11.8-14.1); RDW-SD 37.0 fL; WBC 14.67 10^3/uL (4.4-10.8)
[2024-11-06 06:51] LABS: Anion Gap 11.9 mmol/L (3-11); BUN 18 mg/dL (7-18); CO2 23.1 mmol/L (21.0-32.0); Calcium 9.6 mg/dL (8.5-10.1); Chloride 100 mmol/L (98-107); Estimated GFR 72.76 (mL/min/1.73m2); Glucose 136 mg/dL (74-106); Potassium 3.6 mmol/L (3.5-5.1); Sodium 135 mmol/L (136-145)
--- NOTE | 2024-11-06 08:01 | DI.VRAD_ITS ---
PROCEDURE INFORMATION: Exam: CT Abdomen And Pelvis Without Contrast Exam date and time: 11/06/2024 6:57 AM Age: 53 years old Clinical indication: Abdominal pain; Flank; Right lower quadrant (rlq); Additional info: R flank/lq pain TECHNIQUE: Imaging protocol: Computed tomography of the abdomen and pelvis without contrast. COMPARISON: CT ABDOMEN PELVIS W 09/13/2023 5:17 PM FINDINGS: Liver: Normal appearance of the liver. Gallbladder and biliary ducts: No calcified stones or ductal dilation. Pancreas: No ductal dilation. Spleen: Unremarkable. Adrenal glands: Unremarkable. Kidneys and ureters: Severe right hydronephrosis with perinephric stranding and obstructing calculus in the right UPJ measuring 9 mm. No left hydronephrosis. Stomach and bowel: No obstruction. No mucosal thickening. Appendix: Status post appendectomy. Intraperitoneal space: No free air. No significant fluid collection. Vasculature: Unremarkable. Lymph nodes: No enlarged lymph nodes. Urinary bladder: Unremarkable as visualized. Reproductive: Unremarkable as visualized. Bones/joints: Unremarkable. No acute fracture. Soft tissues: Unremarkable. IMPRESSION: Severe right hydronephrosis with perinephric stranding and obstructing calculus in the right UPJ measuring 9 mm. Dictated and Authenticated by: Marcia Eastman MD. Orderin Santosh Crowder MD
[2024-11-06 08:03] VITALS: BP 148/62; PULSE 62; O2SAT 99
[2024-11-06 09:30] LABS: Glucose Negative (Negative)
[2024-11-06 09:38] LABS: C & S Indicated? No; WBC 0-2 HPF (0-5)
--- NOTE | 2024-11-06 10:21 | W.EDPROG ---
Date of service: 11/06/24 Time of Service: 10:21 Medical Decision Making UA shows no signs of infection, CT confirms 9 mm right-sided proximal kidney stone with hydronephrosis. He is feeling significantly better and states his pain is resolved. No fevers or other concerning symptoms. I did try to touch base with his urologist Dr. Townsend but unfortunately is not on-call and is unable to talk with him directly. I am placing him on the follow-up list to expedite follow-up. Return precautions given Discharge Plan Disposition Patient Disposition: Home Condition: Stable Discharge Details Clinical Impression: Kidney stone on right side Primary Care Provider: Nick Dave ED Provider: Zach Lugo Home Meds and New Rx's Prescriptions: New ondansetron 4 mg tablet,disintegrating 4 mg PO Q8H PRN (Reason: nausea and vomiting) Qty: 30 0RF tamsulosin 0.4 mg capsule 0.4 mg PO DAILY Qty: 14 0RF Rx Instructions: take 1 daily for 14 days or until you pass the kidney stone morphine 15 mg tablet 15 mg PO Q8H PRN (Reason: pain) Qty: 12 0RF Continued sertraline 25 mg tablet 50 mg PO DAILY cholecalciferol (vitamin D3) 10 mcg (400 unit) capsule 40 mcg PO DAILY multivitamin Tablet 1 tab PO DAILY psyllium husk [Daily Fiber] 0.52 gram capsule 0.52 g PO DAILY sertraline 25 mg tablet 25 mg PO DAILY propranolol 20 mg tablet 20 mg PO BID PRN Discharge Instructions Additional Instructions: I placed you on our follow-up list to try to expedite follow-up with Dr. Townsend. You can take 1000 mg of acetaminophen and 600 mg of ibuprofen every 6 hours as needed. If you feel more ill, have persistent vomiting or high fevers return to the emergency department for reevaluation.
[2024-11-06 10:45] VITALS: BP 126/68; PULSE 72
== END 2024-11-06 10:48 | disposition home or self-care (01) ==
PROVIDERS: Emergency Medicine; Emergency Provider Emergency Medicine; PCP Family Medicine
DX: N20.0 Calculus of kidney (principal)
CPT/HCPCS: 99284 ×2; 36415; 96374; 96375; 00123; 80048; 96361; 74176; 81003; 81015; 85025; J1885; J2270; J2405

== ENCOUNTER 2024-11-13 06:11 | Emergency (ER) | payer OTHER, SELFPAY ==
[2024-11-13 06:13] VITALS: BP 189/90; PULSE 83; RESP 18; TEMP 36.4; O2SAT 99
[2024-11-13 06:17] VITALS: BP 189/90; PULSE 83; RESP 18; TEMP 36.4; O2SAT 99
--- NOTE | 2024-11-13 06:24 | W.ED.GENAD ---
Discharge Plan Discharge Details Chief Complaint: FlankPain Primary Care Provider: Nick Dave ED Provider: Vel Frost [place] Meds and New Rx's Prescriptions: No Action sertraline 25 mg tablet 50 mg PO DAILY cholecalciferol (vitamin D3) 10 mcg (400 unit) capsule 40 mcg PO DAILY multivitamin Tablet 1 tab PO DAILY psyllium husk [Daily Fiber] 0.52 gram capsule 0.52 g PO DAILY sertraline 25 mg tablet 25 mg PO DAILY propranolol 20 mg tablet 20 mg PO BID PRN ondansetron 4 mg tablet,disintegrating 4 mg PO Q8H PRN (Reason: nausea and vomiting) Qty: 30 0RF tamsulosin 0.4 mg capsule 0.4 mg PO DAILY Qty: 14 0RF Rx Instructions: take 1 daily for 14 days or until you pass the kidney stone morphine 15 mg tablet 15 mg PO Q8H PRN (Reason: pain) Qty: 12 0RF HPI General Mode of arrival: ambulatory. Date/Time Provider Initiated Documentation: 11/13/24 06:18. Limitations to Documentation: no limitations. Information obtained by: patient, RN notes reviewed and old records reviewed. HPI Narrative: Patient presenting to ED with worsening right flank pain and nausea with vomiting. Patient seen just about 1 week ago with similar presentation. Was found to have a right UPJ stone. Has had follow-up with urology and is planned to have surgery on 24 November. Patient has been doing relatively well during the week. Last night acute exacerbation of the pain with associated vomiting. No fever that he is aware of. No gross hematuria. Related Data Home Medications ?Medication ?Instructions ?Recorded ?Confirmed cholecalciferol (vitamin D3) 10 40 mcg PO DAILY 07/02/21 11/13/24 mcg (400 unit) capsule multivitamin 1 tab PO DAILY 07/02/21 11/13/24 sertraline 25 mg tablet 50 mg PO DAILY 03/25/22 11/13/24 psyllium husk 0.52 gram capsule 0.52 g PO DAILY 05/13/22 11/13/24 (Daily Fiber) sertraline 25 mg tablet 25 mg PO DAILY 07/21/23 11/13/24 propranolol 20 mg tablet 20 mg PO BID PRN 08/05/23 11/13/24 morphine 15 mg immediate release 15 mg PO Q8H PRN pain #12 tabs 11/06/24 11/13/24 tablet ondansetron 4 mg disintegrating 4 mg PO Q8H PRN nausea and 11/06/24 11/13/24 tablet vomiting #30 tabs tamsulosin 0.4 mg capsule 0.4 mg PO DAILY #14 caps 11/06/24 11/13/24 Held on 11/13/24. Instructions: pt states not taking 11/13/24 Previous Rx's ?Medication ?Instructions ?Recorded morphine 15 mg immediate release 15 mg PO Q8H PRN pain #12 tabs 11/06/24 tablet ondansetron 4 mg disintegrating 4 mg PO Q8H PRN nausea and 11/06/24 tablet vomiting #30 tabs tamsulosin 0.4 mg capsule 0.4 mg PO DAILY #14 caps 11/06/24 Held on 11/13/24. Instructions: pt states not taking 11/13/24 Allergies Allergy/AdvReac Type Severity Reaction Status Date / Time No Known Allergies Allergy Verified 11/09/24 13:21 General Stated Complaint: FlankPain ARTURO: 3 Exam Narrative Exam Narrative: Const: WDWN male, uncomfortable, pacing. VS per triage. HEENT: NC/AT. Normal facial exam. Neck: Supple. Trachea midline. Lungs: Normal respiratory effort. Neuro: A+O x 3. Normal speech, mentation, gait. Cranial nerves II - XII grossly intact. No gross motor or sensory deficit. Ext: No C/C/E. Course Vital Signs Vital signs: Vital Signs Temperature 97.5 F L 11/13/24 06:13 Pulse 83 11/13/24 06:13 Respiratory Rate 18 11/13/24 06:13 Blood Pressure 189/90 H 11/13/24 06:13 Pulse Oximetry 99 11/13/24 06:13 Temperature 97.5 F L 11/13/24 06:17 Temperature Source Temporal Artery Scan 11/13/24 06:17 Pulse 83 11/13/24 06:17 Respiratory Rate 18 11/13/24 06:17 Blood Pressure 189/90 H 11/13/24 06:17 Blood Pressure Position Sitting 11/13/24 06:17 Pulse Oximetry 99 11/13/24 06:17 Oxygen Delivery Method Room Air 11/13/24 06:17 Oxygen Flow Rate 0 11/13/24 06:17 Pain Level 8 11/13/24 06:17 Medical Decision Making Patient presenting with recurrent severe pain and vomiting with a known right UPJ stone from previous CT scan. Appears very uncomfortable. He is afebrile. Will plan IV fluids and IV pain medication as needed. CBC and BMP sent. Repeat urinalysis when available. Will try not to rescan if I am able to get renal ultrasound this morning. Patient be signed out to oncoming ED physician, Dr. Pickett. Medical Records Medical records reviewed: Yes I reviewed the patient's medical records. Lab Data Lab results reviewed: Yes I reviewed the patient's lab results. Lab results narrative: CBC and BMP with no significant findings. White count has decreased compared to previous visit and is now 11.9. Kidney function remains normal. 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) Recurrent major depressive disorder (Acute) Urinary dribbling (Acute) Hyperlipidemia (Acute) BPH w urinary obs/LUTS (Acute) Bladder outlet obstruction (Acute) Anxiety (Chronic) Tobacco dependence (Acute) Smoker (Acute) Left rotator cuff tear (Acute) Sinusitis (Acute) Restless leg syndrome (Acute) Mixed hyperlipidemia (Acute) Sleep apnea (Acute) Vitamin D deficiency (Acute) Rotator cuff tear, right (Acute) Medical History Bladder neck contracture Urethral bleeding Torticollis neck, Dx 2010 Obstructive sleep apnea on CPAP Ankle fracture, right plate and pins, ~2013 [facility] Bursitis of right shoulder Tendonitis of long head of biceps brachii of right shoulder Surgical History S/P laparoscopic appendectomy (~09/2023) History of arthroscopy of right shoulder (01/30/22) With bursal supraspinatus repair and biceps tenodesis [place] [facility] [place] [facility] [place] Social History Smoking/Tobacco Use Status: Current-Occasional Tobacco Type: cigars Tobacco: How many years used: 25 Smoking risk assessment performed?: Yes Alcohol Intake: current Alcohol Intake frequency: holidays/special occasions only Alcohol type: beer Drug use: Never Substance use type: does not use Housing: house Current gender identity: male Do you feel safe at home: Yes Do you feel safe in your relationship?: Yes
[2024-11-13 06:44] LABS: Abs Immature Grans 0.03 10^3/uL (0.0-0.06); HCT 39.2 % (40.0-50.0); HGB 13.5 g/dL (13.5-17.5); Immature Grans % 0.3 %; MCH 30.3 pg (27.0-33.0); MCHC 34.4 % (32.0-36.0); MCV 88 fL (80-95); MPV 11.2 fL (8.0-11.0); Platelet Count 206 10^3/uL (130-400); RBC 4.46 10^6/uL (4.36-5.78); RDW 11.8 % (11.8-14.1); RDW-SD 37.8 fL; WBC 11.88 10^3/uL (4.4-10.8)
[2024-11-13] MEDS: MORPHine 4 MG/ML SYR IVP (06:51)
[2024-11-13] MEDS: Normal Saline 1,000 ML 1000 ML IV (06:51)
[2024-11-13 06:54] LABS: Anion Gap 7.3 mmol/L (3-11); BUN 14 mg/dL (7-18); CO2 29.7 mmol/L (21.0-32.0); Calcium 8.9 mg/dL (8.5-10.1); Chloride 105 mmol/L (98-107); Estimated GFR 90.56 (mL/min/1.73m2); Glucose 126 mg/dL (74-106); Potassium 4.0 mmol/L (3.5-5.1); Sodium 142 mmol/L (136-145)
[2024-11-13] MEDS: Ketorolac 15 MG/ML VIAL IVP (07:21)
[2024-11-13 07:32] VITALS: BP 154/73; PULSE 85; RESP 18; O2SAT 100
[2024-11-13] MEDS: Benzocaine/Menthol LOZG 15/BOX 1 EACH SUC (07:42)
--- NOTE | 2024-11-13 07:45 | DI.RAD_ITS ---
Exam(s) XR ABDOMEN FLAT PLATE EXAM: 2D digital imaging was performed. CLINICAL HISTORY: known R UPJ stone increased pain. COMPARISON: CR XR ABDOMEN FLAT PLATE from 09/22/[address] RENAL COLIC WO from 11/06/2024 TECHNIQUE: Supine views of the abdomen was performed. Three images were obtained. FINDINGS: LUNG BASES: Clear. BOWEL GAS PATTERN: Nondistended. FREE AIR: None. CALCIFICATIONS: There is a 1.2 cm stone at the level of L2. It is on the right side and consistent with the patient's known right UPJ stone. It does not appear to have moved since the prior examination. OSSEOUS STRUCTURES: Normal for age. OTHER FINDINGS: None. IMPRESSION: Stable location of the patient's known right UPJ stone. DATA REPOSITORY: RADIATION DOSE DELIVERED:
--- NOTE | 2024-11-13 07:52 | W.EDPROG ---
Date of service: 11/13/24 Time of Service: 07:52 Medical Decision Making This patient has a 9 mm right-sided UPJ stone. He is pending surgery locally with Dr. Townsend on 11/24. He is having uncontrolled pain. He is pending a KUB and urinalysis. 8:20 AM Urinalysis nitrite negative no leukoesterase. Moderate blood. Microscopy with few bacteria. 0-2 WBCs. KUB obtained no obvious stone on my preliminary read. I met with the patient. He was feeling markedly improved following ketorolac. Reading KUB still pending. Will attempt to touch base with Dr. Townsend. CBC showed persistent but improved leukocytosis. No anemia. No thrombocytopenia. 8:56 AM Patient continues to feel improved. I was in touch with Dr. Townsend. Given the patient is having difficulty with outpatient management he advised making the patient n.p.o. tomorrow evening at midnight for possibility of procedure on Thursday. Will discharge patient on oral ketorolac. Discharge Plan Disposition Patient Disposition: Home Discharge Details Clinical Impression: Ureterolithiasis, Acute right flank pain Primary Care Provider: Nick Dave ED Provider: Daquan Pickett Home Meds and New Rx's Prescriptions: New ketorolac 10 mg tablet 10 mg PO Q8H PRNQty: 14 0RF Rx Instructions: maximum total duration of 5 days from all oral, intranasal, or parenteral formulations Continued sertraline 25 mg tablet 50 mg PO DAILY cholecalciferol (vitamin D3) 10 mcg (400 unit) capsule 40 mcg PO DAILY multivitamin Tablet 1 tab PO DAILY psyllium husk [Daily Fiber] 0.52 gram capsule 0.52 g PO DAILY sertraline 25 mg tablet 25 mg PO DAILY propranolol 20 mg tablet 20 mg PO BID PRN ondansetron 4 mg tablet,disintegrating 4 mg PO Q8H PRN (Reason: nausea and vomiting) Qty: 30 0RF tamsulosin 0.4 mg capsule 0.4 mg PO DAILY Qty: 14 0RF Rx Instructions: take 1 daily for 14 days or until you pass the kidney stone morphine 15 mg tablet 15 mg PO Q8H PRN (Reason: pain) Qty: 12 0RF Discharge Instructions Additional Instructions: You are seen in the emergency department for your flank pain. Your stone does not appear to have moved on the x-ray. Please take nausea medicines as needed. Please do not eat or drink anything after midnight on 11/14/2024. The urology team will contact you to discuss moving up your procedure to 11/15/2024. For your pain please take medications as follows: 1. Take acetaminophen (Tylenol), 1,000 mg (two 500 mg tabs) every 6 hours Please also take this prescription medicine as directed. Discharge Data Discharge Date/Time-TO BE ENTERED AT DEPARTURE: 11/13/24 09:13
[2024-11-13 08:03] LABS: Glucose Negative (Negative)
[2024-11-13 08:20] LABS: C & S Indicated? No; WBC 0-2 HPF (0-5)
[2024-11-13 08:41] VITALS: BP 145/77; PULSE 91; O2SAT 98
--- NOTE | 2024-11-13 08:44 | DI.VRAD_ITS ---
PROCEDURE INFORMATION: Exam: XR Abdomen Exam date and time: 11/13/2024 8:10 AM Age: 53 years old Clinical indication: Other: Known R upj stone increased pain TECHNIQUE: Imaging protocol: Radiologic exam of the abdomen. Views: Frontal supine view of the abdomen. 1 View. (3 images total) COMPARISON: CT RENAL COLIC WO 11/06/2024 6:57 AM FINDINGS: Gastrointestinal tract: The small bowel is not significantly air-distended. Air and stool are present within large bowel. Organs: There is a small right paraspinal calcific density corresponding to the UPJ stone on the CT. Bones/joints: Unremarkable. IMPRESSION: Small right paraspinal calcific density corresponding to UPJ stone on CT of 11/06/2024. Dictated and Authenticated by: Zach Olsen MD. Orderin Santosh Crowder MD
== END 2024-11-13 09:13 | disposition home or self-care (01) ==
PROVIDERS: Emergency Medicine; Emergency Provider Emergency Medicine; PCP Family Medicine
DX: N20.1 Calculus of ureter (principal); R10.31 Right lower quadrant pain; R11.2 Nausea with vomiting, unspecified
CPT/HCPCS: 99284 ×2; 96374; 36415; 00123; 80048; 74018; 81003; 81015; 85025; J1885; J2270

== ENCOUNTER 2024-11-15 09:39 | Day surgery (SDC) | payer OTHER, SELFPAY ==
[2024-11-15] VITALS (12 sets, daily range): BP systolic 102–120; BP diastolic 52–73; PULSE 61–74; RESP 12–22; TEMP 36.3–36.8; O2SAT 92–98; BMI 31.6
[2024-11-15] MEDS: Lactated Ringers 1,000 ML 80 ML IV (11:09)
--- NOTE | 2024-11-15 11:20 | W.ANESPRE ---
General Info Date of Service Date Performed: 11/15/24 Height: 6 ft 2 in Weight: 111.7 kg Body Mass Index (BMI): 31.6 Surgical Procedure: Operation Date: 11/15/24 10:55 Proposed Procedure Side Surgeon p Cystoscopy/Laser/Retrograde/Ureteroscopy/ Stone Manipulation/ ?Stent Murray Townsend MD Meds Allergies and Home Medications Allergies Allergy/AdvReac Type Severity Reaction Status Date / Time No Known Allergies Allergy Verified 11/09/24 13:21 Home Medication ?Medication ?Instructions ?Recorded cholecalciferol (vitamin D3) 10 40 mcg PO DAILY 07/02/21 mcg (400 unit) capsule multivitamin 1 tab PO DAILY 07/02/21 sertraline 25 mg tablet 50 mg PO DAILY 03/25/22 psyllium husk 0.52 gram capsule 0.52 g PO DAILY 05/13/22 (Daily Fiber) sertraline 25 mg tablet 25 mg PO DAILY 07/21/23 propranolol 20 mg tablet 20 mg PO BID PRN 08/05/23 morphine 15 mg immediate release 15 mg PO Q8H PRN pain #12 tabs 11/06/24 tablet ondansetron 4 mg disintegrating 4 mg PO Q8H PRN nausea and 11/06/24 tablet vomiting #30 tabs tamsulosin 0.4 mg capsule 0.4 mg PO DAILY #14 caps 11/06/24 Held on 11/15/24. Instructions: Changed by Provider ketorolac 10 mg tablet 10 mg PO Q8H PRN #14 tabs 11/13/24 Current Visit Medications: Current Medications Generic Name Dose Route Start Last Admin Trade Name Freq PRN Reason Stop Dose Admin Ringer's Solution 1,000 mls @ 80 mls/hr 11/15/24 06:00 11/15/24 11:09 IV 11/15/24 23:59 80 mls/hr INFUSION ANGELITA Administration Cefazolin Sodium/Dextrose 2 gm in 50 mls @ 100 mls/hr 11/15/24 06:00 Ancef Duplex IVPB 11/15/24 23:59 PREOP ANGELITA IV Miscellaneous Supplies 1 each 11/15/24 06:00 Iv Access IV 11/15/24 23:59 DIRECTED ANGELITA Sodium Chloride 0 ml 11/15/24 06:00 Normal Saline Flush 10 Ml Syr IV 11/15/24 23:59 PRN PRN Sodium Chloride 0 ml 11/15/24 06:00 Normal Saline 10 Ml Vial IJ 11/15/24 23:59 DIRECTED PRN Sterile Water 0 ml 11/15/24 06:00 Water,Injection,Sterile 10 Ml Vial IJ 11/15/24 23:59 DIRECTED PRN PFSH Active Problems Active Problems: Problem Status Onset Code Acute right flank pain Acute R10.9 Ureterolithiasis Acute N20.1 Kidney stone on right side Acute N20.0 Bursitis of left shoulder Acute M75.52 Fever Acute R50.9 Nephrolithiasis Chronic N20.0 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 Acute D16.02 Recurrent major depressive disorder Acute F33.9 Urinary dribbling Acute N39.43 Hyperlipidemia Acute E78.5 BPH w urinary obs/LUTS Acute N40.1, N13.8 Bladder outlet obstruction Acute N32.0 Anxiety Chronic F41.9 Tobacco dependence Acute F17.200 Smoker Acute F17.200 Left rotator cuff tear Acute M75.102 Sinusitis Acute J32.9 Restless leg syndrome Acute G25.81 Mixed hyperlipidemia Acute E78.2 Sleep apnea Acute G47.30 Vitamin D deficiency Acute E55.9 Rotator cuff tear, right Acute M75.101 Medical History Medical History Bladder neck contracture Urethral bleeding Torticollis neck, Dx 2010 Obstructive sleep apnea on CPAP Ankle fracture, right plate and pins, ~2013 [facility] Bursitis of right shoulder Tendonitis of long head of biceps brachii of right shoulder Medical History Comments:: As child PONV Surgical History Surgical History S/P laparoscopic appendectomy (~09/2023) History of arthroscopy of right shoulder (01/30/22) With bursal supraspinatus repair and biceps tenodesis [place] [facility] [place] [facility] [place] Tobacco Smoking/Tobacco Use Status: Current-Occasional Tobacco Type: cigars Alcohol Alcohol Intake: current Alcohol intake frequency: holidays/special occasions only Alcohol type: beer Substance Use Substance use: Never Substance use type: does not use Vital Signs and Lab Results Vital Signs Most Recent Vital Signs in EMR: Most Recent Vital Signs Temp Pulse Resp BP Pulse Ox 36.6 C 72 18 120/73 98 11/15/24 09:45 11/15/24 09:45 11/15/24 09:45 11/15/24 09:45 11/15/24 09:45 Lab Results Complete Blood Count: WBC, (4.4-10.8) 11.88 10^3/uL H 11/13/24, 06:37 RBC, (4.36-5.78) 4.46 10^6/uL 11/13/24, 06:37 Hgb, (13.5-17.5) 13.5 g/dL 11/13/24, 06:37 Hct, (40.0-50.0) 39.2 % L 11/13/24, 06:37 Plt Count, (130-400) 206 10^3/uL 11/13/24, 06:37 Complete Metabolic Panel: Sodium, (136-145) 142 mmol/L 11/13/24, 06:37 Potassium, (3.5-5.1) 4.0 mmol/L 11/13/24, 06:37 Chloride, (98-107) 105 mmol/L 11/13/24, 06:37 Carbon Dioxide, (21.0-32.0) 29.7 mmol/L 11/13/24, 06:37 BUN, (7-18) 14 mg/dL 11/13/24, 06:37 Creatinine, (0.70-1.30) 1.0 mg/dL 11/13/24, 06:37 Est GFR (CKD-EPI 2020), (mL/min/1.73m2) 90.56 11/13/24, 06:37 Calcium, (8.5-10.1) 8.9 mg/dL 11/13/24, 06:37 Glucose, (74-106) 126 mg/dL H 11/13/24, 06:37 Anesthesia Assessment and Plan Anesthesia History Personal History: No History of Anesthesia Complications Family History: No Family History of Anesthesia Complications Exercise Tolerance Exercise Tolerance: Metabolic Equivalents>4 Cardiac & Pulmonary Exam Cardiac Exam: Normal S1/S2 Heart Sounds Pulmonary Exam: Clear Bilateral Breath Sounds Implantable Cardiac Device Does patient have a Pacemaker or an ICD?: No Airway Exam Known Difficult Airway: No Mallampati Class: 2 Mouth Opening: Normal (> 3cm) Thyromental Distance: Greater than 3 cm Neck Range of Motion: Full ROM Neck Circumference: Normal Teeth Condition: Normal Dentition ASA Classification ASA Score: ASA 2 Emergency Case?: No NPO Status NPO Status: NPO Clears >2 hours, Solids >8 hours Anesthesia Plan Resuscitation Status: Full Code Anesthesia Technique: General Anesthesia Airway Planned: LMA Monitors Used: Standard Monitors Preoperative Comments:: 53 yo male for cysto due to stone. Sig PMHx: RONALD (CPAP), BPH, anxiety, RLS. occ cigars/EtOH. Approp NPO, currently hungry. Denies GERD. Previous Anes: - cysto, prop, natural airway, no issues. - appy, mac 3 grade 2b, glide 3 grade 1. - shoulder, mac 3 grade 1, masked with OPA.
--- NOTE | 2024-11-15 11:27 | W.PM.HP.N ---
Date of service: 11/15/24 Time of Service: 11:27 Assessment and Plan Assessment and plan (1) Kidney stone on right side: Status: Acute Assessment and plan: We will plan to do cystoscopy, retrograde pyelogram and at a minimum, place a right ureteral stent. If I am able to pass a flexible ureteroscope up to the stone, we will use a holmium laser to fragment the stone. Given the size of his stone, he would not surprise me that a staged procedure is required. For that reason, we will keep his scheduled surgery appointment for next week. History of Present Illness History of Present Illness Chief Complaint: Right UPJ stone Narrative: This is a 53-year-old gentleman who has had multiple emergency department visits for right flank pain. He is found to have a 9 x 6 mm stone at the right ureteropelvic junction. When he was evaluated in the office, he was symptom-free, so his procedure was scheduled for next week. Since then, he has been back in the emergency department with significant symptoms of pain without fever or chills. He comes in now for more urgent procedure to place a ureteral stent. If we are able, we will attempt to access the stone ureteroscopically and use holmium laser lithotripsy to fracture the stone. He has no known history of gout or hyperparathyroidism. This is his first episode of stone disease. Review of Systems Narrative: No fevers or chills No vision change or dysphasia No diabetes or thyroid Sleep apnea. Smoker. 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 (Acute) Recurrent major depressive disorder (Acute) Urinary dribbling (Acute) Hyperlipidemia (Acute) BPH w urinary obs/LUTS (Acute) Bladder outlet obstruction (Acute) Anxiety (Chronic) Tobacco dependence (Acute) Smoker (Acute) Left rotator cuff tear (Acute) Sinusitis (Acute) Restless leg syndrome (Acute) Mixed hyperlipidemia (Acute) Sleep apnea (Acute) CPAP Vitamin D deficiency (Acute) Rotator cuff tear, right (Acute) Medical History Bladder neck contracture Urethral bleeding Torticollis neck, Dx 2010 Obstructive sleep apnea on CPAP Ankle fracture, right plate and pins, ~2013 [facility] Bursitis of right shoulder Tendonitis of long head of biceps brachii of right shoulder Surgical History S/P laparoscopic appendectomy (~09/2023) History of arthroscopy of right shoulder (01/30/22) With bursal supraspinatus repair and biceps tenodesis H/O nasal septoplasty [facility] [place] S/P [place] [facility] [place] Social History Smoking/Tobacco Use Status: Current-Occasional Tobacco Type: cigars Tobacco: How many years used: 25 Smoking risk assessment performed?: Yes Alcohol Intake: current Alcohol Intake frequency: holidays/special occasions only Alcohol type: beer Drug use: Never Substance use type: does not use Housing: house Current gender identity: male Additional Social history: [facility] Meds Allergies and Home Medications Allergies Allergy/AdvReac Type Severity Reaction Status Date / Time No Known Allergies Allergy Verified 11/09/24 13:21 Home Medications ?Medication ?Instructions ?Recorded ?Confirmed ?Type cholecalciferol (vitamin D3) 10 40 mcg PO DAILY 07/02/21 11/15/24 History mcg (400 unit) capsule multivitamin 1 tab PO DAILY 07/02/21 11/15/24 History sertraline 25 mg tablet 50 mg PO DAILY 03/25/22 11/15/24 History psyllium husk 0.52 gram capsule 0.52 g PO DAILY 05/13/22 11/15/24 History (Daily Fiber) sertraline 25 mg tablet 25 mg PO DAILY 07/21/23 11/15/24 History propranolol 20 mg tablet 20 mg PO BID PRN 08/05/23 11/15/24 History morphine 15 mg immediate release 15 mg PO Q8H PRN pain #12 tabs 11/06/24 11/15/24 Rx tablet ondansetron 4 mg disintegrating 4 mg PO Q8H PRN nausea and 11/06/24 11/15/24 Rx tablet vomiting #30 tabs tamsulosin 0.4 mg capsule 0.4 mg PO DAILY #14 caps 11/06/24 11/15/24 Rx Held on 11/15/24. Instructions: Changed by Provider ketorolac 10 mg tablet 10 mg PO Q8H PRN #14 tabs 11/13/24 11/15/24 Rx Exam Const General: cooperative Neck Neck: supple Resp Effort & Inspection: normal respiratory effort Auscultation: clear to auscultation bilaterally Cardio Rate: regular rate Rhythm: regular rhythm GI Palpation: soft and no masses Neuro General: patient alert, patient awake and patient oriented x3 Results Last Vital Signs Temp 36.6 C 11/15/24 09:45 Pulse 72 11/15/24 09:45 Resp 18 11/15/24 09:45 BP 120/73 11/15/24 09:45 Pulse Ox 98 11/15/24 09:45 Time Spent Time spent with Patient: <40 minutes Time was spent: other
--- NOTE | 2024-11-15 12:08 | W.ANESPOSTOP ---
Postoperative Evaluation Date, Time and Location Date Performed: 11/15/24 Time Performed: 12:08 Patient Location: PACU Vital Signs Most Recent Imported Vital Signs: Most Recent Vital Signs Temp Pulse Resp BP Pulse Ox 36.6 C 72 18 120/73 98 11/15/24 09:45 11/15/24 09:45 11/15/24 09:45 11/15/24 09:45 11/15/24 09:45 Pain Score Most Recent Pain Score: Most Recent Pain Score Pain Level 3 11/15/24 09:45 Assessment Mental Status: Arousable with meaningful communication Airway and Respiratory Function: Patent airway with normal (patient baseline) respiratory exam Cardiovascular Function: Hemodynamically Stable Hydration Status: Adequately Hydrated Nausea & Vomiting: No Nausea or Vomiting Pain: Pain is tolerable per patient Peripheral Nerve Block: Patient did not receive a nerve block
--- NOTE | 2024-11-15 12:15 | DI.RAD_ITS ---
Exam(s) XR RETROGRADE IN OR EXAM: XR RETROGRADE IN OR CLINICAL HISTORY: kidney stone right side. TECHNIQUE: Fluoroscopy was provided for the referring physician for guidance with performing retrograde procedure. COMPARISON: CR,XR XR ABDOMEN FLAT PLATE from 11/13/2024 FINDINGS: Images show placement of a right ureteral stent. Please see procedure note for details. Fluoro time: 23.8 seconds RADIATION DOSE DELIVERED: Ka,r=6.82 mGy
[2024-11-15] MEDS: ceFAZolin 2 GM/50 ML BAG IVPB (12:52)
[2024-11-15] MEDS: Lidocaine 2% Jelly 11 ML SYR (13:28)
[2024-11-15] MEDS: Omnipaque 300 MG/ML 50 ML BTL (13:32)
--- NOTE | 2024-11-15 13:44 | W.PM.DSUDISC ---
Date of service: 11/15/24 Discharge Plan Disposition Patient Disposition: Home Condition: Stable Discharge Details Reason For Visit: Ureteroscopy and laser lithotripsy of stone Attending Provider: Murray Townsend Primary Care Provider: Nick Dave Home Meds and New Rx's Prescriptions: No Action sertraline 25 mg tablet 50 mg PO DAILY cholecalciferol (vitamin D3) 10 mcg (400 unit) capsule 40 mcg PO DAILY multivitamin Tablet 1 tab PO DAILY psyllium husk [Daily Fiber] 0.52 gram capsule 0.52 g PO DAILY sertraline 25 mg tablet 25 mg PO DAILY propranolol 20 mg tablet 20 mg PO BID PRN ondansetron 4 mg tablet,disintegrating 4 mg PO Q8H PRN (Reason: nausea and vomiting) Qty: 30 0RF tamsulosin 0.4 mg capsule 0.4 mg PO DAILY Qty: 14 0RF Rx Instructions: take 1 daily for 14 days or until you pass the kidney stone morphine 15 mg tablet 15 mg PO Q8H PRN (Reason: pain) Qty: 12 0RF ketorolac 10 mg tablet 10 mg PO Q8H PRNQty: 14 0RF Rx Instructions: maximum total duration of 5 days from all oral, intranasal, or parenteral formulations Discharge Instructions Additional Instructions: There is no need to strain your urine I was able to break your stone up into smaller pieces. I sent one of the pieces to the lab to be analyzed. I also placed a ureteral stent. While the stent is in place, you may urinate more frequently. You may see some blood in the urine and you may have some discomfort when you urinate. We will keep your original surgery date of 11/24 on the schedule. At that time, I will remove your stent and run the scope back up to the kidney to make sure all the stone pieces have passed. Activity:: Activity as Tolerated Shower/Bathe:: 24 hours Diet:: As Tolerated Discharge Orders Discharge Orders: Discharge Order (Routine); Ordered 11/15/24 Ordered By: Murrya Townsend DS: Diagnosis Discharge Diagnosis (1) Kidney stone on right side: Status: Acute
--- NOTE | 2024-11-15 13:47 | W.PM.OP ---
Operative Note Operative Note PRE-OP DIAGNOSIS: Right kidney stone POST-OP DIAGNOSIS: same PROCEDURE: Cystoscopy, right retrograde pyelogram, right ureteroscopy with holmium laser lithotripsy of renal stone, extraction of right renal stone fragment, insert right ureteral stent SURGEON: Murray Townsend ANESTHESIA TYPE: Local By Surgeon and General LMA/ETT Refer to Anesthesia Record ESTIMATED BLOOD LOSS: 5 PATHOLOGY: other (stone fragment for chemical analysis) COMPLICATIONS: None Patient was transported to: PACU Patient's condition: stable Implants: 6 Austrian by 22 to 30 cm right ureteral stent Indications: This is a 53-year-old gentleman who was previously identified as having a stone in the lower pole of the right kidney. The stone was nonobstructing and asymptomatic, so it was not treated. More recently, he has had episodes of right flank pain and has been found to have stone migration to the renal pelvis. He presents now for stone manipulation Findings: Large stone in right renal pelvis Procedure Description: The patient was given IV antibiotics and brought to the operating room on 11/15/2024. After successful induction of general anesthesia, he was placed in the dorsal lithotomy position. His genitalia was prepped and draped. 2% Xylocaine jelly was instilled into the urethra to act as a local anesthetic. A 22 Austrian rigid cystoscope was passed through the urethra into the bladder. The urethra and bladder were inspected using the 30 degree lens. The pendulous, bulbar and membranous urethra's appeared normal with no strictures. The prostatic urethra showed a bladder neck contracture, but I was able to maneuver the scope through the bladder neck into the bladder. Both ureteral orifices appeared normal with no blood coming from either side. The right orifice was cannulated with a 5 Austrian access catheter. A retrograde pyelogram was obtained by injecting Omnipaque through the access catheter under fluoroscopic guidance. The filling defect in the renal pelvis was outlined. I then passed a guidewire through the lumen of the access catheter and removed the catheter and cystoscope. I passed the dual-lumen catheter over the wire and positioned a second wire up the ureter. I removed the dual-lumen catheter and advanced a ureteral access sheath over one of the wires. We chose the other wire as a safety wire. I passed the flexible ureteroscope through the ureteral access sheath up to the UPJ area. There was some narrowing of the right UPJ, but I was able to maneuver the scope through the area into the renal pelvis. A large stone was visualized within the right renal pelvis. The stone was treated with a 272 ?m holmium laser fiber. We used fragmentation settings for the laser with a power setting of 0.8 and a rate of 8. The stone fragmented very very well. I was able to grasp a very small stone fragment in a ZeroTip stone basket and extract the fragment. We sent the fragment to the lab for chemical analysis. At the completion of the procedure, the stone had been fragmented, but not all stone fragments had been removed. We elected to place a 6 Austrian variable length stent. We passed the stent over the safety wire and positioned the proximal end of the stent in the renal pelvis and the distal end within the bladder. The positioning of the stent was confirmed both fluoroscopically and cystoscopically. The patient tolerated the procedure well with no complications. He was taken to the recovery room in stable condition. We will make plans to return to the operating room next week to remove his stent and repeat ureteroscopy to ensure all stone fragments had been removed. Date of Procedure: 11/15/24
[2024-11-15] MEDS: traMADol 50 MG TAB PO (14:30)
[2024-11-15] MEDS: Phenazopyridine 200 MG TAB PO (14:31)
--- NOTE | 2024-11-15 14:47 | W.ANESPOSTOP ---
Postoperative Evaluation Date, Time and Location Date Performed: 11/15/24 Time Performed: 14:47 Patient Location: Day Surgery Unit Vital Signs Most Recent Imported Vital Signs: Most Recent Vital Signs Temp Pulse Resp BP Pulse Ox 36.5 C 66 16 112/69 95 11/15/24 14:22 11/15/24 14:22 11/15/24 14:22 11/15/24 14:22 11/15/24 14:22 Pain Score Most Recent Pain Score: Most Recent Pain Score Pain Level 3 11/15/24 14:22 Assessment Mental Status: Awake (Alert & Oriented to Patient Baseline) Airway and Respiratory Function: Patent airway with normal (patient baseline) respiratory exam Cardiovascular Function: Hemodynamically Stable Hydration Status: Adequately Hydrated Nausea & Vomiting: No Nausea or Vomiting Pain: Pain is tolerable per patient Peripheral Nerve Block: Patient did not receive a nerve block
== END 2024-11-15 15:15 | disposition home or self-care (01) ==
PROVIDERS: PCP Family Medicine; Visit Provider Urology
PROC: (CPT 52356; principal; 2024-11-15 10:45)
DX: N20.0 Calculus of kidney (principal)
CPT/HCPCS: 52356; 74420; 82365; J0690; J1100; J1885; J2003; J2250; J2405; J2704; Q9967

== ENCOUNTER 2024-11-21 06:04 | Day surgery (SDC) | payer OTHER, SELFPAY ==
--- NOTE | 2024-11-20 19:08 | W.ANESPRE ---
General Info Date of Service Date Performed: 11/21/24 Height: 6 ft 2 in Weight: 111.584 kg Body Mass Index (BMI): 31.6 Surgical Procedure: Operation Date: 11/21/24 07:40 Proposed Procedure Side Surgeon p Cystoscopy/Retrograde/Ureteroscopy/ Removal Stent Right Murray Townsend MD Meds Allergies and Home Medications Allergies Allergy/AdvReac Type Severity Reaction Status Date / Time No Known Allergies Allergy Verified 11/21/24 06:19 Home Medication ?Medication ?Instructions ?Recorded cholecalciferol (vitamin D3) 10 40 mcg PO DAILY 07/02/21 mcg (400 unit) capsule multivitamin 1 tab PO DAILY 07/02/21 sertraline 25 mg tablet 50 mg PO DAILY 03/25/22 psyllium husk 0.52 gram capsule 0.52 g PO DAILY 05/13/22 (Daily Fiber) sertraline 25 mg tablet 25 mg PO DAILY 07/21/23 propranolol 20 mg tablet 20 mg PO BID PRN 08/05/23 morphine 15 mg immediate release 15 mg PO Q8H PRN pain #12 tabs 11/06/24 tablet ondansetron 4 mg disintegrating 4 mg PO Q8H PRN nausea and 11/06/24 tablet vomiting #30 tabs tamsulosin 0.4 mg capsule 0.4 mg PO DAILY #14 caps 11/06/24 Held on 11/15/24. Instructions: Changed by Provider ketorolac 10 mg tablet 10 mg PO Q8H PRN #14 tabs 11/13/24 Current Visit Medications: Current Medications Generic Name Dose Route Start Last Admin Trade Name Freq PRN Reason Stop Dose Admin Ringer's Solution 1,000 mls @ 80 mls/hr 11/21/24 06:00 IV 12/18/24 23:59 INFUSION ANGELITA Cefazolin Sodium/Dextrose 2 gm in 50 mls @ 100 mls/hr 11/21/24 06:00 Ancef Duplex IVPB 12/18/24 23:59 PREOP ANGELITA IV Miscellaneous Supplies 1 each 11/21/24 06:00 Iv Access IV 12/18/24 23:59 DIRECTED ANGELITA Sodium Chloride 0 ml 11/21/24 06:00 Normal Saline Flush 10 Ml Syr IV 12/18/24 23:59 PRN PRN Sodium Chloride 0 ml 11/21/24 06:00 Normal Saline 10 Ml Vial IJ 12/18/24 23:59 DIRECTED PRN Sterile Water 0 ml 11/21/24 06:00 Water,Injection,Sterile 10 Ml Vial IJ 12/18/24 23:59 DIRECTED PRN PFSH Active Problems Active Problems: Problem Status Onset Code Acute right flank pain Acute R10.9 Ureterolithiasis Acute N20.1 Kidney stone on right side Acute N20.0 Bursitis of left shoulder Acute M75.52 Fever Acute R50.9 Nephrolithiasis Chronic N20.0 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 Acute D16.02 Recurrent major depressive disorder Acute F33.9 Urinary dribbling Acute N39.43 Hyperlipidemia Acute E78.5 BPH w urinary obs/LUTS Acute N40.1, N13.8 Bladder outlet obstruction Acute N32.0 Anxiety Chronic F41.9 Tobacco dependence Acute F17.200 Smoker Acute F17.200 Left rotator cuff tear Acute M75.102 Rotator cuff tear, right Acute M75.101 Vitamin D deficiency Acute E55.9 Sleep apnea Acute G47.30 Mixed hyperlipidemia Acute E78.2 Restless leg syndrome Acute G25.81 Sinusitis Acute J32.9 Medical History Medical History Bladder neck contracture Urethral bleeding Torticollis neck, Dx 2010 Obstructive sleep apnea on CPAP Ankle fracture, right plate and pins, ~2013 [facility] Bursitis of right shoulder Tendonitis of long head of biceps brachii of right shoulder Surgical History Surgical History S/P cystoscopy with ureteral stent placement S/P laparoscopic appendectomy (~09/2023) History of arthroscopy of right shoulder (01/30/22) With bursal supraspinatus repair and biceps tenodesis [place] [facility] [place] [facility] [place] Tobacco Smoking/Tobacco Use Status: Current-Occasional Tobacco Type: cigars Alcohol Alcohol Intake: current Alcohol intake frequency: holidays/special occasions only Alcohol type: beer Substance Use Substance use: Never Substance use type: does not use Vital Signs and Lab Results Vital Signs Most Recent Vital Signs in EMR: Temp Pulse Resp BP Pulse Ox 36.5 C 68 20 140/79 98 11/21/24 06:21 11/21/24 06:21 11/21/24 06:21 11/21/24 06:21 11/21/24 06:21 Lab Results Complete Blood Count: WBC, (4.4-10.8) 11.88 10^3/uL H 11/13/24, 06:37 RBC, (4.36-5.78) 4.46 10^6/uL 11/13/24, 06:37 Hgb, (13.5-17.5) 13.5 g/dL 11/13/24, 06:37 Hct, (40.0-50.0) 39.2 % L 11/13/24, 06:37 Plt Count, (130-400) 206 10^3/uL 11/13/24, 06:37 Complete Metabolic Panel: Sodium, (136-145) 142 mmol/L 11/13/24, 06:37 Potassium, (3.5-5.1) 4.0 mmol/L 11/13/24, 06:37 Chloride, (98-107) 105 mmol/L 11/13/24, 06:37 Carbon Dioxide, (21.0-32.0) 29.7 mmol/L 11/13/24, 06:37 BUN, (7-18) 14 mg/dL 11/13/24, 06:37 Creatinine, (0.70-1.30) 1.0 mg/dL 11/13/24, 06:37 Est GFR (CKD-EPI 2020), (mL/min/1.73m2) 90.56 11/13/24, 06:37 Calcium, (8.5-10.1) 8.9 mg/dL 11/13/24, 06:37 Glucose, (74-106) 126 mg/dL H 11/13/24, 06:37 Anesthesia Assessment and Plan Anesthesia History Personal History: No History of Anesthesia Complications Family History: No Family History of Anesthesia Complications Exercise Tolerance Exercise Tolerance: Metabolic Equivalents>4 Cardiac & Pulmonary Exam Cardiac Exam: Normal S1/S2 Heart Sounds Pulmonary Exam: Clear Bilateral Breath Sounds Implantable Cardiac Device Does patient have a Pacemaker or an ICD?: No Airway Exam Known Difficult Airway: No Mallampati Class: 2 Mouth Opening: Normal (> 3cm) Thyromental Distance: Greater than 3 cm Neck Range of Motion: Full ROM Neck Circumference: Normal Teeth Condition: Normal Dentition ASA Classification ASA Score: ASA 2 Emergency Case?: No NPO Status NPO Status: NPO Clears >2 hours, Solids >8 hours Anesthesia Plan Resuscitation Status: Full Code Anesthesia Technique: General Anesthesia Airway Planned: Natural Airway Monitors Used: Standard Monitors Preoperative Comments:: 53 yo for cysto due to stone. Denies any changes in his health history since his last visit. Approp NPO, denies reflux. Sig PMHx: RONALD (CPAP), BPH, anxiety, RLS. occ cigars/EtOH. Previous Anes: - cysto, glide 3 grade 1, easy mask - cysto, prop, natural airway, no issues. - appy, mac 3 grade 2b, glide 3 grade 1. - shoulder, mac 3 grade 1, masked with OPA.
[2024-11-21 06:21] VITALS: BP 140/79; PULSE 68; RESP 20; TEMP 36.5; O2SAT 98
[2024-11-21] MEDS: Lactated Ringers 1,000 ML 80 ML IV (06:42)
--- NOTE | 2024-11-21 06:43 | W.PM.HP.N ---
Date of service: 11/21/24 Time of Service: 06:43 Assessment and Plan Assessment and plan (1) Nephrolithiasis: Status: Chronic Assessment and plan: We will move forward with cystoscopy and stent removal. Will then do a retrograde pyelogram and repeat flexible ureteroscopy. If any significant stone fragments are found, we will extract them with a ZeroTip stone basket. History of Present Illness History of Present Illness Chief Complaint: Renal stone Narrative: This is a 53-year-old gentleman has a past history of kidney stones. He presented last week with right sided renal colic. He was found to have migration of a nonobstructing kidney stone into the upper ureter where the stone became obstructing. He was treated with ureteroscopy, holmium laser lithotripsy and placement of a ureteral stent. He presents now for stent removal and repeat ureteroscopy to make sure all stone fragments have been addressed. Review of Systems Narrative: No fevers or chills No vision change or dysphasia No diabetes or thyroid Sleep apnea. 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 (Acute) Recurrent major depressive disorder (Acute) Urinary dribbling (Acute) Hyperlipidemia (Acute) BPH w urinary obs/LUTS (Acute) Bladder outlet obstruction (Acute) Anxiety (Chronic) Tobacco dependence (Acute) Smoker (Acute) Left rotator cuff tear (Acute) Rotator cuff tear, right (Acute) Vitamin D deficiency (Acute) Sleep apnea (Acute) CPAP Mixed hyperlipidemia (Acute) Restless leg syndrome (Acute) Sinusitis (Acute) Medical History Bladder neck contracture Urethral bleeding Torticollis neck, Dx 2010 Obstructive sleep apnea on CPAP Ankle fracture, right plate and pins, ~2014 [facility] Bursitis of right shoulder Tendonitis of long head of biceps brachii of right shoulder Surgical History S/P cystoscopy with ureteral stent placement S/P laparoscopic appendectomy (~09/2023) History of arthroscopy of right shoulder (01/30/22) With bursal supraspinatus repair and biceps tenodesis H/O nasal septoplasty [facility] [place] S/P [place]URP [facility] [place] Social History Smoking/Tobacco Use Status: Current-Occasional Tobacco Type: cigars Tobacco: How many years used: 25 Smoking risk assessment performed?: Yes Alcohol Intake: current Alcohol Intake frequency: holidays/special occasions only Alcohol type: beer Drug use: Never Substance use type: does not use Housing: house Current gender identity: male Do you feel safe at home: Yes Do you feel safe in your relationship?: Yes Meds Allergies and Home Medications Allergies Allergy/AdvReac Type Severity Reaction Status Date / Time No Known Allergies Allergy Verified 11/21/24 06:19 Home Medications ?Medication ?Instructions ?Recorded ?Confirmed ?Type cholecalciferol (vitamin D3) 10 40 mcg PO DAILY 07/02/21 11/21/24 History mcg (400 unit) capsule multivitamin 1 tab PO DAILY 07/02/21 11/18/24 History sertraline 25 mg tablet 50 mg PO DAILY 03/25/22 11/21/24 History psyllium husk 0.52 gram capsule 0.52 g PO DAILY 05/13/22 11/18/24 History (Daily Fiber) sertraline 25 mg tablet 25 mg PO DAILY 07/21/23 11/21/24 History propranolol 20 mg tablet 20 mg PO BID PRN 08/05/23 11/21/24 History morphine 15 mg immediate release 15 mg PO Q8H PRN pain #12 tabs 11/06/24 11/21/24 Rx tablet ondansetron 4 mg disintegrating 4 mg PO Q8H PRN nausea and 11/06/24 11/18/24 Rx tablet vomiting #30 tabs tamsulosin 0.4 mg capsule 0.4 mg PO DAILY #14 caps 11/06/24 11/21/24 Rx Held on 11/15/24. Instructions: Changed by Provider ketorolac 10 mg tablet 10 mg PO Q8H PRN #14 tabs 11/13/24 11/21/24 Rx Exam Const General: cooperative Neck Neck: supple Resp Effort & Inspection: normal respiratory effort Auscultation: clear to auscultation bilaterally Cardio Rate: regular rate Rhythm: regular rhythm GI Palpation: soft and no masses Neuro General: patient alert, patient awake and patient oriented x3 Results Last Vital Signs Temp 36.5 C 11/21/24 06:21 Pulse 68 11/21/24 06:21 Resp 20 11/21/24 06:21 BP 140/79 11/21/24 06:21 Pulse Ox 98 11/21/24 06:21 Time Spent Time spent with Patient: <40 minutes Time was spent: other
[2024-11-21 06:48] VITALS: BMI 31.6
--- NOTE | 2024-11-21 07:15 | DI.RAD_ITS ---
Exam(s) XR RETROGRADE IN OR EXAM: XR RETROGRADE IN OR CLINICAL HISTORY: Nephrolithiasis. TECHNIQUE: 2D digital imaging was performed. COMPARISON: No exams were available for comparison FINDINGS: Fluoroscopy was provided for the urologist during retrograde study. See procedure report for details Total fluoroscopy time 11 seconds IMPRESSION: Radiation exposure index/cumulative dose:Ehsanr=2.324mGy DATA REPOSITORY: RADIATION DOSE DELIVERED:
[2024-11-21] MEDS: ceFAZolin 2 GM/50 ML BAG IVPB (07:40)
[2024-11-21] MEDS: Lidocaine 2% Jelly 11 ML SYR (08:05)
[2024-11-21] MEDS: Omnipaque 300 MG/ML 50 ML BTL (08:06)
--- NOTE | 2024-11-21 08:29 | W.PM.DSUDISC ---
Date of service: 11/21/24 Discharge Plan Disposition Patient Disposition: Home Condition: Stable Discharge Details Reason For Visit: ureteroscopy Attending Provider: Murray Townsend Primary Care Provider: Nick Dave Recommendations for Follow Up Recommended tests to be ordered by follow up provider: renal us in 6 to 8 weeks Home Meds and New Rx's Prescriptions: No Action sertraline 25 mg tablet 50 mg PO DAILY cholecalciferol (vitamin D3) 10 mcg (400 unit) capsule 40 mcg PO DAILY multivitamin Tablet 1 tab PO DAILY psyllium husk [Daily Fiber] 0.52 gram capsule 0.52 g PO DAILY sertraline 25 mg tablet 25 mg PO DAILY propranolol 20 mg tablet 20 mg PO BID PRN ondansetron 4 mg tablet,disintegrating 4 mg PO Q8H PRN (Reason: nausea and vomiting) Qty: 30 0RF tamsulosin 0.4 mg capsule 0.4 mg PO DAILY Qty: 14 0RF Rx Instructions: take 1 daily for 14 days or until you pass the kidney stone morphine 15 mg tablet 15 mg PO Q8H PRN (Reason: pain) Qty: 12 0RF ketorolac 10 mg tablet 10 mg PO Q8H PRNQty: 14 0RF Rx Instructions: maximum total duration of 5 days from all oral, intranasal, or parenteral formulations Discharge Instructions Additional Instructions: There is no need to strain your urine Followup appt in 6 to 8 weeks with a renal US prior to visit Activity:: Activity as Tolerated Shower/Bathe:: 24 hours Diet:: As Tolerated Discharge Orders Discharge Orders: Discharge Order (Routine); Ordered 11/21/24 Ordered By: Murray Townsend DS: Diagnosis Discharge Diagnosis (1) Nephrolithiasis: Status: Chronic
[2024-11-21 08:30] VITALS: BP 91/58; PULSE 74; RESP 18; TEMP 36.3; O2SAT 96
--- NOTE | 2024-11-21 08:31 | W.PM.OP ---
Operative Note Operative Note PRE-OP DIAGNOSIS: Right kidney stone POST-OP DIAGNOSIS: same PROCEDURE: cystoscopy, remove right ureteral stent, right retrograde pyelogram, right flexible ureteroscopy with stone fragment extraction SURGEON: Murray Townsend ANESTHESIA TYPE: Local By Surgeon and General:No Airway Refer to Anesthesia Record ESTIMATED BLOOD LOSS: 5 PATHOLOGY: other (stone fragments for chemical analysis) COMPLICATIONS: None Patient was transported to: same day Patient's condition: stable Implants: none Indications: This is a 53-year-old gentleman who was previously seen with an obstructing right proximal ureteral stone. He was treated with ureteroscopy and holmium laser lithotripsy. We placed a ureteral stent. He presents now for stent removal and repeat ureteroscopy to remove any residual stone fragments Findings: Multiple small stone fragments in the lower pole calyces Procedure Description: The patient was given antibiotics and brought to the operating room on 11/21/2024. After successful induction of general anesthesia, he was placed in the dorsal lithotomy position. His genitalia was prepped and draped. 2% Xylocaine jelly was instilled into the urethra. A 22 Erit[place]an rigid cystoscope was passed through the urethra into the bladder. The urethra and bladder were inspected with the 30 degree lens. The pendulous, bulbar and membranous urethra all appeared normal with no strictures. The prostatic urethra showed evidence of a previous transurethral resection with a slight bladder neck contracture. The bladder neck was entered and the bladder mucosa was inspected. A stent could be seen protruding from the right ureteral orifice. The stent was grasped with alligator forceps and brought to the level of the urethral meatus. A guidewire was advanced through the lumen of the stent and the stent was removed. A dual-lumen catheter was advanced over the wire and a retrograde pyelogram was obtained by injecting Omnipaque through the second port of the dual-lumen catheter. This allowed us to outline each of the calyces. A second wire was then positioned and we chose one of the wires as a working wire and the other as a safety wire. We removed the dual-lumen catheter and passed a ureteral access sheath over the working wire leaving the safety wire in place. I then passed the flexible ureteroscope through the access sheath and advanced the scope up to the renal pelvis. Each of the calyces was inspected and we identified multiple small stone fragments in the lower pole calyces. The largest of these fragments were grasped and a ZeroTip stone basket and removed. The stone fragments were sent to pathology for chemical analysis. The remainder of the fragments were felt to be too small for basketing. I removed the ureteroscope and the ureteral access sheath. I replaced the dual-lumen catheter and injected Omnipaque through the catheter under fluoroscopic guidance. There was no evidence of extravasation of contrast in the contrast could be seen moving down the ureter under fluoroscopic guidance. For this reason, we elected not to replace his ureteral stent. The patient tolerated this procedure well with no complications. He was taken back to the day surgery unit in stable condition. Date of Procedure: 11/21/24
[2024-11-21] MEDS: Phenazopyridine 200 MG TAB PO (08:59)
[2024-11-21 09:00] VITALS: BP 117/72; PULSE 62; RESP 18; TEMP 36.1; O2SAT 98
--- NOTE | 2024-11-21 09:25 | W.ANESPOSTOP ---
Postoperative Evaluation Date, Time and Location Date Performed: 11/21/24 Time Performed: 09:15 Patient Location: Day Surgery Unit Vital Signs Most Recent Imported Vital Signs: Most Recent Vital Signs Temp Pulse Resp BP Pulse Ox 36.1 C L 62 18 117/72 98 11/21/24 09:00 11/21/24 09:00 11/21/24 09:00 11/21/24 09:00 11/21/24 09:00 Pain Score Most Recent Pain Score: Most Recent Pain Score Pain Level 0 11/21/24 09:00 Assessment Mental Status: Awake (Alert & Oriented to Patient Baseline) Airway and Respiratory Function: Patent airway with normal (patient baseline) respiratory exam Cardiovascular Function: Hemodynamically Stable Hydration Status: Adequately Hydrated Nausea & Vomiting: No Nausea or Vomiting Pain: Pt. Denies Any Pain Peripheral Nerve Block: Patient did not receive a nerve block
== END 2024-11-21 09:37 | disposition home or self-care (01) ==
PROVIDERS: PCP Family Medicine; Visit Provider Urology
PROC: (CPT 52352; principal; 2024-11-21 07:30)
DX: N20.0 Calculus of kidney (principal); E55.9 Vitamin D deficiency, unspecified; E78.2 Mixed hyperlipidemia; G25.81 Restless legs syndrome; F41.9 Anxiety disorder, unspecified; F17.210 Nicotine dependence, cigarettes, uncomplicated
CPT/HCPCS: 52352; 74420; 82365; J0131; J0690; J1100; J1885; J2371; J2405; J2704; J3010; Q9967